=== PATIENT | female | born 1945 | race Caucasian/White ===

== ENCOUNTER → 2018-03-10 10:24 | Outpatient (CLI) | payer MEDICARE, SELFPAY ==
[2018-03-10 13:26] LABS: Absolute Lymphocyte Count 2.55 X10^3/ul (0.83-4.51); Absolute Neutrophil Count 3.1 X10^3/uL (2.0-7.7); Basophil# 0.02 X10^3/uL; Basophil% 0.3 % (0-1); Eosinophil# 0.15 X10^3/uL; Eosinophils% 2.3 % (0-5); Hematocrit 43.9 % (37-47); Hemoglobin 14.4 g/dl (12.0-15.0); Lymphocyte # 2.55 X10^3/ul (4.0); Lymphocyte % 39.4 % (19-41); Mean Corp Hgb Conc 32.8 g/gl (32-36); Mean Corpuscular Hgb 29.8 pg (27.0-32.0); Mean Corpuscular Volume 90.7 fL (81-99); Mean Platelet Vol. 10.6 fl (6.2-12.0); Monocyte# 0.61 X10^3/uL; Monocyte% 9.4 % (0-10); Neutrophil # 3.13 X10^3/uL (2.7-7.7); Neutrophil % 48.3 % (47-70); Platelet Count 253 K/mm3 (150-450); RBC Distribution Width CV 13.4 % (11.6-14.6); RBC Distribution Width SD 44.1 fl (35.1-43.9); Red Blood Count 4.84 M/mm3 (4.2-5.4); White Blood Count 6.5 K/mm3 (4.4-11.0)
[2018-03-10 13:28] LABS: POSITIVE COUNT NO; POSITIVE DIFFERENTIAL NO; POSITIVE MORPHOLOGY NO
[2018-03-10 13:46] LABS: Vitamin D,25 Hydroxy 21.9 ng/mL (29.95-100.01)
[2018-03-10 13:51] LABS: ALB/GLOB Ratio 1.1 RATIO (0.9-2.4); AST(SGOT) 20 U/L (15-37); Alanine Aminotransfer ALT/SGPT 33 U/L (13-56); Albumin, Serum 3.4 g/dL (3.2-5.0); Alkaline Phosphatase 109 U/L (45-117); Anion Gap 6 (5-15); BUN 15 mg/dL (7-18); BUN/Creat Ratio 17.8 RATIO (10-20); Calcium,Total 8.7 mg/dL (8.5-10.1); Chloride 107 mmol/L (98-107); Cholesterol 169 mg/dL (200); Creatinine, Serum 0.84 mg/dL (0.55-1.02); EST Glomerular Filtration Rate 71 mL/min (>60); Est Glom Filt Rate - Afr Amer 86 mL/min (>60); Globulin 3.2 g/dL (2.2-4.2); Glucose 107 mg/dL (74-106); High Density Lipoprotein 66 mg/dL; Potassium 4.3 mmol/L (3.5-5.1); Protein, Total 6.6 g/dL (6.4-8.2); Sodium Level 142 mmol/L (136-145); Thyroid Stim Hormone (TSH) 0.36 uIU/mL (0.358-3.74); Triglycerides 157 mg/dL; Very Low Density Lipoprotein 31 mg/dL (5-40)
[2018-03-11 08:32] LABS: Hep C Antibodies <0.1 s/co ratio (0.0-0.9)
== END ==
PROVIDERS: Family Provider Family Medicine Geriatric Medicine; PCP Family Medicine Geriatric Medicine; Visit Provider Family Medicine Geriatric Medicine
DX: E78.4 Other hyperlipidemia (principal); I10 Essential (primary) hypertension; E55.9 Vitamin D deficiency, unspecified; Z13.89 Encounter for screening for other disorder
CPT/HCPCS: 36415; 80053; 80061; 82306; 84443; 85025; 86803

== ENCOUNTER → 2018-03-30 08:45 | Outpatient (CLI) | payer MEDICARE, SELFPAY ==
--- NOTE | 2018-03-30 08:55 | ECHOCS_ITS ---
Reason For Study: SOB Procedure This was a 2D Doppler, Color Flow transthoracic echocardiogram. Exam performed in department. Left Ventricle Normal size and thickness. The estimated ejection fraction is 65 %. Stage 1 diastolic dysfunction. No regional wall motion abnormalities noted. Right Ventricle Normal size and thickness. Normal systolic function. Atria Normal left atrium. Normal right atrium. Normal atrial septum. Mitral Valve The mitral valve is structurally normal. No prolapse or stenosis seen. Tricuspid Valve Normal tricuspid valve. Trivial tricuspid valve insufficiency. Right ventricular systolic pressure estimated to be 25 mmHg. Aortic Valve Normal aortic valve. Trisinus/trileaflet aortic valve. Pulmonic Valve Normal pulmonic valve. Great Vessels Normal aortic root. Normal arch. Normal inferior vena cava. Inferior vena cava collapse with sniff. Pericardium/Pleural No pericardial effusion. Medication Definity0.2ml given slow IV push to enhance endocardial definition. MMode/2D Measurements & Calculations LVIDd: 4.0 cm IVSd: 0.86 cm Ao root diam: 2.9 cm LVIDs: 2.6 cm LVPWd: 0.93 cm RVDd: 3.3 cm FS: 33.6 % LAV(MOD-bp): 27.8 ml LA A4 area: 11.0 cm2 RA A4 area: 10.8 cm2 LAV(MOD-bp) Indexed: 14.5 ml/m2 LAV(MOD-sp2): 32.2 ml LAV(MOD-sp4): 23.3 ml Doppler Measurements & Calculations MV E max michael: 66.2 cm/sec Lat Peak E' Michael: 8.5 cm/sec Med Peak E' Michael: 4.5 cm/sec MV A max michael: 85.2 cm/sec E/E' lat: 7.8 E/E' med: 14.7 MV E/A: 0.78 Ao V2 max: 116.4 cm/sec LV V1 max: 95.3 cm/sec PA V2 max: 73.1 cm/sec Ao max P.4 mmHg LV V1 max P.6 mmHg Ao V2 mean: 83.9 cm/sec Ao mean P.0 mmHg Ao V2 VTI: 29.9 cm TR max michael: 221.0 cm/sec TR max P.6 mmHg Interpretation Summary The estimated ejection fraction is 65 %. Stage 1 diastolic dysfunction. Trivial tricuspid valve insufficiency. Right ventricular systolic pressure estimated to be 25 mmHg. Comapred to echo report dated 06/16/2005, no appreciable changes noted. The study was technically difficult. Contrast injection was performed. Ordering Physician: Neno Rosenbaum Referring Physician: Neno Rosenbaum Chi Performed By: Sandy Santiago, KYLE, RVT
== END ==
PROVIDERS: Family Provider Family Medicine Geriatric Medicine; PCP Family Medicine Geriatric Medicine; Visit Provider Family Medicine Geriatric Medicine
DX: R06.02 Shortness of breath (principal)
CPT/HCPCS: 93306; Q9957; A4216; C8929

== ENCOUNTER → 2018-07-06 06:38 | Outpatient (CLI) | payer MEDICARE, SELFPAY ==
--- NOTE | 2018-07-06 06:40 | RAD_ITS ---
STUDY: X-RAY CHEST REASON FOR EXAM: Female, 72 years old. Shortness of breath TECHNIQUE: Frontal and lateral views of the chest COMPARISON: 12/23/2014 FINDINGS: The lungs are clear. There are no pleural effusions. There is no pneumothorax. The heart is normal in size. The visualized osseous structures are within normal limits. RAD/Chest PA and Lateral IMPRESSION: No acute thoracic pathology. Electronically Signed: Alex Chandler, at 20:52 EDT Tel , Service support ,
--- NOTE | 2018-07-06 10:09 | STRESSREP ---
Stress Test Report Date: 07/06/2018 Procedure: Exercise tolerance test/imaging study Indications: Shortness of breath/dyspnea Consent: Per the patient Procedure: The patient exercised on a Raheel protocol for 5 minutes and 15 seconds completing Stage I and 2 minutes and 15 seconds of Stage II achieving a peak heart rate of 127 bpm (85 % predicted maximal heart rate) with a peak blood pressure 142/78 mmHg and a peak MET capacity of 7 METs. The baseline ECG demonstrated sinus bradycardia. The peak exercise ECG demonstrated somatic/motion artifact no obvious ECG changes. There were no cardiac dysrhythmias pretest, during exercise, or recovery. The functional capacity was considered average. There was no complaint of chest discomfort during exercise or recovery. The examination was discontinued secondary to dyspnea. Impression: 1. Technically adequate (percent predicted maximal heart rate greater than 85%) exercise tolerance test 2. Peak exercise ECG with somatic/motion artifact with no obvious ECG changes 3. There were no cardiac dysrhythmias pretest, during exercise, or recovery. 4. Nuclear images pending Myocardial perfusion imaging study: Technique: The patient was injected with 11 mCi of technetium 99m Cardiolite and subsequently rest SPECT Cardiolite nuclear imaging was obtained in the horizontal long, vertical long, and short axis views. The patient exercised on a Raheel protocol for 5 minutes and 15 seconds completing Stage I and 2 minutes and 15 seconds of Stage II achieving a peak heart rate of 127 bpm (85 % predicted maximal heart rate) with a peak blood pressure 142/78 mmHg and a peak MET capacity of 7 METs. The patient was injected with 33 mCi of technetium 99m Cardiolite and subsequently stress SPECT Cardiolite nuclear imaging was obtained in the horizontal long, vertical long, and short axis views. A gated Cardiolite study at peak stress was obtained. Interpretation: Rest and stress SPECT Cardiolite nuclear imaging status post realignment, normalization, and attenuation correction, demonstrates the appearance of relative uniform tracer uptake and myocardial perfusion appearing within normal limits. There is end systolic thickening and brightening. The gated Cardiolite study demonstrates myocardial thickening and inward wall motion. The reported LVEF is 84 %. Impression: 1. Rest and stress SPECT Cardiolite nuclear imaging demonstrate relative uniform tracer uptake and myocardial perfusion appearing within normal limits. 2. The gated Cardiolite study reports an LVEF of 84 %. This note was generated with [employer] software. It may contain incorrect words, spelling, and punctuation that were not noted in checking the note before signing.
--- NOTE | 2018-07-06 10:13 | STRESSREP_ITS ---
Stress Test Report Date: 07/06/2018 Procedure: Exercise tolerance test/imaging study Indications: Shortness of breath/dyspnea Consent: Per the patient Procedure: The patient exercised on a Raheel protocol for 5 minutes and 15 seconds completing Stage I and 2 minutes and 15 seconds of Stage II achieving a peak heart rate of 127 bpm (85 % predicted maximal heart rate) with a peak blood pressure 142/78 mmHg and a peak MET capacity of 7 METs. The baseline ECG demonstrated sinus bradycardia. The peak exercise ECG demonstrated somatic/motion artifact no obvious ECG changes. There were no cardiac dysrhythmias pretest, during exercise, or recovery. The functional capacity was considered average. There was no complaint of chest discomfort during exercise or recovery. The examination was discontinued secondary to dyspnea. Impression: 1. Technically adequate (percent predicted maximal heart rate greater than 85% ) exercise tolerance test 2. Peak exercise ECG with somatic/motion artifact with no obvious ECG changes 3. There were no cardiac dysrhythmias pretest, during exercise, or recovery. 4. Nuclear images pending Myocardial perfusion imaging study: Technique: The patient was injected with 11 mCi of technetium 99m Cardiolite and subsequently rest SPECT Cardiolite nuclear imaging was obtained in the horizontal long, vertical long, and short axis views. The patient exercised on a Raheel protocol for 5 minutes and 15 seconds completing Stage I and 2 minutes and 15 seconds of Stage II achieving a peak heart rate of 127 bpm (85 % predicted maximal heart rate) with a peak blood pressure 142/78 mmHg and a peak MET capacity of 7 METs. The patient was injected with 33 mCi of technetium 99m Cardiolite and subsequently stress SPECT Cardiolite nuclear imaging was obtained in the horizontal long, vertical long, and short axis views. A gated Cardiolite study at peak stress was obtained. Interpretation: Rest and stress SPECT Cardiolite nuclear imaging status post realignment, normalization, and attenuation correction, demonstrates the appearance of relative uniform tracer uptake and myocardial perfusion appearing within normal limits. There is end systolic thickening and brightening. The gated Cardiolite study demonstrates myocardial thickening and inward wall motion. The reported LVEF is 84 %. Impression: 1. Rest and stress SPECT Cardiolite nuclear imaging demonstrate relative uniform tracer uptake and myocardial perfusion appearing within normal limits. 2. The gated Cardiolite study reports an LVEF of 84 %. This note was generated with [employer] software. It may contain incorrect words, spelling, and punctuation that were not noted in checking the note before signing.
== END ==
PROVIDERS: Family Provider Family Medicine Geriatric Medicine; PCP Family Medicine Geriatric Medicine; Visit Provider Internal Medicine Cardiovascular Disease
DX: R06.02 Shortness of breath (principal); I51.9 Heart disease, unspecified; E78.5 Hyperlipidemia, unspecified; I10 Essential (primary) hypertension
CPT/HCPCS: 71046; 78452; 93017; A9500; A4216

== ENCOUNTER 2018-07-25 16:57 | Observation (INO) | payer MEDICARE, SELFPAY ==
[2018-07-25] VITALS (11 sets, daily range): BP systolic 127–184; BP diastolic 55–97; PULSE 48–63; RESP 9–18; TEMP 36.6–36.7; O2SAT 95–100; BMI 37.8; BMI 36.8; BMI 36.9
[2018-07-25 17:05] LABS: Bedside Glucose 83 mg/dL (70-110)
--- NOTE | 2018-07-25 17:20 | ED.DCSUM_ITS ---
- ER Visit Summary Date of Service: 07/25/18 Chief Complaint: Possible TIA History of Present Illness: The patient is a 72 F with a history of TIA. She presents for symptoms that started suddenly at 3:45 PM today. She had a headache, slurred speech, abnormal writing, and intermittent chest pain. She had similar symptoms in the past with TIAs. Currently, her symptoms have resolved. She reports a history of hypothyroidism, hypertension, hyperlipidemia , CHF, and asthma. She does not take blood thinners. Physical Examination: Blood pressure 148/97. Otherwise vital signs unremarkable. Afebrile. Heart rate 52. Patient in no acute distress. Alert and oriented. GCS 15. NIH stroke scale is 0. Head and neck atraumatic. Heart regular. Lungs clear. Abdomen soft. Skin appears normal in color without rash. Test Results: EKG shows sinus rhythm at a rate of 50. No sign of acute ischemia or infarction pattern. Laboratory studies, CT brain, CTA chest pending. Emergency Department Course and Treatment: Patient placed on a monitor. IV access obtained. Will reassess. Workup including head CT, CTA chest, labs, troponin all unremarkable. BUN 20 and creatinine 1.31. No sign of dissection, PE, or acute process. On reevaluation, patient had no further symptoms or recurrent symptoms. Will be admitted for further care. Treatment Plan: As above Disposition: Admission to PCU Impression: 1. TIA 2. Chest pain 3. Acute kidney injury This note was generated with [employer] dictation software. It may contain incorrect words, spelling, and punctuation that were not noted in review of the chart prior to signing ED Disposition - Plan for ED Patient: Chief Complaint: Weakness Referrals: Neno Rosenbaum Chi, MD [Primary Care Provider] -
[2018-07-25 17:25] LABS: Absolute Lymphocyte Count 2.82 X10^3/ul (0.83-4.51); Absolute Neutrophil Count 3.9 X10^3/uL (2.0-7.7); Basophil# 0.02 X10^3/uL; Basophil% 0.3 % (0-1); Eosinophil# 0.15 X10^3/uL; Eosinophils% 1.9 % (0-5); Hematocrit 42.5 % (37-47); Hemoglobin 14.1 g/dl (12.0-15.0); Lymphocyte # 2.82 X10^3/ul (4.0); Lymphocyte % 36.1 % (19-41); Mean Corp Hgb Conc 33.2 g/gl (32-36); Mean Corpuscular Hgb 29.9 pg (27.0-32.0); Mean Corpuscular Volume 90.2 fL (81-99); Mean Platelet Vol. 10.5 fl (6.2-12.0); Monocyte# 0.94 X10^3/uL; Neutrophil # 3.86 X10^3/uL (2.7-7.7); Neutrophil % 49.3 % (47-70); Platelet Count 241 K/mm3 (150-450); RBC Distribution Width CV 13.5 % (11.6-14.6); RBC Distribution Width SD 44.4 fl (35.1-43.9); Red Blood Count 4.71 M/mm3 (4.2-5.4); White Blood Count 7.8 K/mm3 (4.4-11.0)
[2018-07-25 17:29] LABS: POSITIVE COUNT NO; POSITIVE DIFFERENTIAL NO; POSITIVE MORPHOLOGY NO
[2018-07-25 17:44] LABS: Anion Gap 8 (5-15); BUN 20 mg/dL (7-18); BUN/Creat Ratio 15.3 RATIO (10-20); Calcium,Total 8.9 mg/dL (8.5-10.1); Chloride 104 mmol/L (98-107); Creatinine, Serum 1.31 mg/dL (0.55-1.02); EST Glomerular Filtration Rate 43 mL/min (>60); Est Glom Filt Rate - Afr Amer 52 mL/min (>60); Estimated Creatinine Clearance 30.15 ml/min; Glucose 78 mg/dL (74-106); Sodium Level 138 mmol/L (136-145)
[2018-07-25 18:20] LABS: Prothrombin Time (Protime)PT. 12.7 SECONDS (11.7-14.9)
[2018-07-25 18:21] LABS: Partial Thromboplast Time 25.2 Seconds (24.1-36.2)
--- NOTE | 2018-07-25 19:11 | PCM.HP.STD ---
Problem List (1) TIA (transient ischemic attack) Status: Acute (2) Chest pain Status: Acute Qualifiers: Chest pain type: unspecified Qualified Code(s): R07.9 - Chest pain, unspecified (3) NAKIA (acute kidney injury) Status: Acute (4) Obesity (BMI 30-39.9) Status: Chronic (5) Diastolic dysfunction Status: Chronic (6) Hyperlipidemia Status: Chronic Qualifiers: (7) Hypertension Status: Chronic Qualifiers: Hypertension type: essential hypertension Qualified Code(s): I10 - Essential (primary) hypertension (8) Asthma Status: Chronic Qualifiers: Asthma severity: unspecified severity Asthma persistence: unspecified Asthma complication type: unspecified Qualified Code(s): J45.909 - Unspecified asthma, uncomplicated (9) Hypothyroidism Status: Chronic Qualifiers: Hypothyroidism type: unspecified Qualified Code(s): E03.9 - Hypothyroidism, unspecified (10) Generalized osteoarthritis Status: Chronic History of Present Illness Date of Admission: 07/25/18 Chief Complaint: Weakness The patient is a 72 y/o F w/ PMHx: Obesity, HTN, HLD, Diastolic Dysfunction, Asthma, Hypothyroidism, Obesity, Hx TIA who presents to the [facility] ED on 07/25/18 with history of onset at 15:45 sudden headache generalized, RUE weakness w/ difficulty writing (R hand dominant), expressive aphasia which resolved at ~ 5 pm upon ED presentation in addition to onset sharp stabbing sensation 10/10 rated, intermittent chest pain in the retrosternal region without radiation, lasting seconds with associated dyspnea which she admits she has had in the past and had negative stress testing prior. She notes ongoing history of dyspnea and these intermittent stabbing chest pains w/ recent 04/30/18 ECHO w/ EF 65%, stage I diastolic dysfunction, trivial TV insufficiency, RVSP 25 mmHg with no appreciable changes since 2004 and recent cardiac stress testing on 07/06/18 which was unremarkable for ischemia. In the ED patient NIH score 0 and no recurrent chest discomfort. In the ED work-up included afebrile, heart rate 53, BP 134/71, respiratory rate 12, 100% on room air, unremarkable CBC, unremarkable coags, BMP with BUN/creatinine 20/1.31 (baseline creatinine 0.8), troponin less than 0.015, CT head with no acute findings, CTPA with no acute evidence of pulmonary embolism or arterial dissection, poor expiratory effort with subsegmental atelectasis in the inferior lung base, calcified lymph nodes seen in the left hilum. Past Medical History Past Medical History (Chronic Problems): Chronic Problems (Last Updated 06/29/18 @ 10:07 by Sharon Cohen) Obesity (BMI 30-39.9) (Chronic) Diastolic dysfunction (Chronic) Hyperlipidemia (Chronic) Hypertension (Chronic) Asthma (Chronic) Hypothyroidism (Chronic) Generalized osteoarthritis (Chronic) Medical History: Medical History (Last Updated 06/29/18 @ 10:07 by Sharon Cohen) Diastolic dysfunction (Chronic) I51.9 Hyperlipidemia (Chronic) E78.5 Hypertension (Chronic) I10 Asthma (Chronic) J45.909 Hypothyroidism (Chronic) E03.9 Generalized osteoarthritis (Chronic) M15.9 History of TIA (transient ischemic attack) and stroke Z86.73 Osteoarthritis M19.90 Plantar fasciitis M72.2 Hypoglycemia E16.2 Mini stroke I63.9 possible IN Allergies sulfadimethoxine Allergy (Mild, Verified 07/25/18 17:04) unknown Home Medications: Ambulatory Orders Medication Instructions Recorded levothyroxine 88 mcg tablet 88 mcg PO QDAY 06/27/18 aspirin 81 mg tablet,delayed 81 mg PO QDAY 06/29/18 release atorvastatin 40 mg tablet 40 mg PO DAILY 06/29/18 citalopram 20 mg tablet 20 mg PO QDAY 06/29/18 metoprolol succinate ER 25 mg 25 mg PO BID tab 06/29/18 tablet,extended release 24 hr Losartan Potassium [Losartan 50 mg PO BID 07/25/18 Potassium] Surgical History: Surgical History (Last Reviewed 06/29/18 @ 10:04 by Sharon Cohen) History of hernia repair Z98.890, Z87.19 History of hysterectomy Z90.710 History of tonsillectomy and adenoidectomy Z98.890 History of tubal ligation Z98.51 H/O: hysterectomy Z98.890, Z90.710 1993 S/P hernia repair Z98.890, Z87.19 S/P tonsillectomy Z90.89 Surgical History: - - Hernia repair, total abdominal hysterectomy, tonsillectomy, bilateral tubal ligation. 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 Lives: With Family Smoking Status: Never smoker Tobacco Use: Non-smoker Alcohol: Rare Drugs: None - *Family History Maternal Family History: Family History (Last Reviewed 06/29/18 @ 10:04 by Sharno Cohen) Father Cancer CVA (cerebral vascular accident) Hypertension CAD (coronary artery disease) Brother Cancer Kidney disease Mother Hypertension CAD (coronary artery disease) Kidney disease Brother Cancer History Items: Diabetes, High Cholesterol, Heart Disease, Hypertension Paternal Family History: Family History (Last Reviewed 06/29/18 @ 10:04 by Sharon Cohen) Father Cancer CVA (cerebral vascular accident) Hypertension CAD (coronary artery disease) Brother Cancer Kidney disease Mother Hypertension CAD (coronary artery disease) Kidney disease Brother Cancer History Items: Diabetes, High Cholesterol, Heart Disease, Hypertension Review of Systems Constitutional: Reports: Fatigue. Denies: Chills, Fever, Weight Change HEENT: Reports: Head Aches. Denies: Sinus Congestion, Sinus Drainage Cardiovascular: Reports: Chest Pain. Denies: Chest Pressure, Chest Tightness, Heaviness, Light Headedness, Orthopnea, Palpitations, Syncope Respiratory: Reports: Shortness of Breath, Shortness of breath at rest, Shortness of breath upon exertion. Denies: Cough, Sputum production Gastrointestinal: Denies: Abdominal Pain, Nausea, Vomiting Genitourinary: Denies: Dysuria Musculoskeletal: Reports: Back Pain. Denies: Joint Pain, Joint Tenderness Skin: Denies: Rash, Wounds Neurological: Reports: Change in Speech, Slurred speech, Confusion, Focal weakness. Denies: Numbness, Tingling Psychiatric: Reports: Anxiety, Depression. Denies: Homicidal Ideations, Suicidal Ideations Hematologic/ Lymphatic: Denies: Easy Bruising, Easy Bleeding VTE Information - Inpt Only VTE Present on Admission: No VTE Mechan Device Prophylaxis: SCD's VTE Pharm Prophylaxis ordered?: Yes Patient Problems: Active and Suspected Problems (Last Updated 06/29/18 @ 10:07 by Sharon Cohen) TIA (transient ischemic attack) (Acute) Chest pain (Acute) NAKIA (acute kidney injury) (Acute) Subjective: Seated upright in the ED bed, no acute distress currently, no recurrent chest pain or recurrent neurological symptoms. Objective: Physical Examination: General: awake, alert, oriented x 3 and cooperative, seated upright in the ED bed in no apparent distress. Skin: normal color, turgor, no icterus, cyanosis. HEENT: AT/NC, EOMI, PERRLA, moderately dry MM, no carotid bruits or JVD noted. Lungs: CTA bilaterally, moderate effort, mild decrease BL bases, no rales, ronchi or wheezing. Heart: Mildly bradycardic with regular rhythm; no gallop, rub audible. Abdomen: soft, obese, NTTP, ND, normal BS, no HSM. Extremities: no cyanosis, clubbing, or edema. Neurological: patient awake, alert, oriented x 3; cognitive function intact; pupils equally reactive to light and accomodation; cranial nerves II-XII grossly normal, moving all 4 extremities, no focal deficits, strength preserved. Psychiatric: affect appears normal, no acute evidence of depressive or anxiety feelings. - Physical Exam Vital Signs Temp Pulse Resp BP Pulse Ox 97.8 F 53 L 12 134/71 H 100 07/25/18 16:57 07/25/18 19:05 07/25/18 19:05 07/25/18 19:05 07/25/18 19:05 Oxygen Delivery Method Room Air Weight: 200 lb 6.403 oz Body Mass Index (BMI) 37.8 Finger Stick Blood Glucose 83 Laboratory Tests Past 24 Hrs 07/25/18 07/25/18 07/25/18 17:05 17:05 17:05 WBC 7.8 RBC 4.71 Hgb 14.1 Hct 42.5 MCV 90.2 MCH 29.9 MCHC 33.2 RDW 13.5 RDW Differential 44.4 H Plt Count 241 MPV 10.5 Immature Gran % (Auto) 0.400 Neut % (Auto) 49.3 Lymph % (Auto) 36.1 Brooke % (Auto) 12.0 H Eos % (Auto) 1.9 Baso % (Auto) 0.3 Absolute Neuts (auto) 3.9 Absolute Lymphs (auto) 2.82 Total Counted Not Reportable PT 12.7 INR 1.0 APTT 25.2 Sodium 138 Potassium 4.0 Chloride 104 Carbon Dioxide 26.0 Anion Gap 8 BUN 20 H Creatinine 1.31 H Estim Creat Clear Calc 30.15 Est GFR (MDRD) Af Amer 52 L Est GFR (MDRD) Non-Af 43 L BUN/Creatinine Ratio 15.3 Glucose 78 Calcium 8.9 Troponin I < 0.015 POC Glucose 07/25/18 17:01 POC Glucose 83 Assessment/Plan All Active Problems (Last Updated 06/29/18 @ 10:07 by Sharon Cohen) TIA (transient ischemic attack) (Acute) Chest pain (Acute) NAKIA (acute kidney injury) (Acute) The patient is a 72 y/o F w/ PMHx: Obesity, HTN, HLD, Diastolic Dysfunction, Asthma, Hypothyroidism, Obesity, Hx TIA who presents to the [facility] ED on 07/25/18 with history of onset at 15:45 sudden headache generalized, RUE weakness w/ difficulty writing (R hand dominant), expressive aphasia which resolved at ~ 5 pm upon ED presentation in addition to onset sharp stabbing sensation 10/10 rated, intermittent chest pain in the retrosternal region without radiation, lasting seconds with associated dyspnea which she admits she has had in the past and had negative stress testing prior. (1) Expressive Aphasia, RUE Weakness concerning for TIA/CVA w/ Hx Prior TIAs: In the ED work-up included afebrile, heart rate 53, BP 134/71, respiratory rate 12, 100% on room air, unremarkable CBC, unremarkable coags, BMP with BUN/creatinine 20/1.31 (baseline creatinine 0.8), troponin less than 0.015, CT head with no acute findings, CTPA with no acute evidence of pulmonary embolism or arterial dissection, poor expiratory effort with subsegmental atelectasis in the inferior lung base, calcified lymph nodes seen in the left hilum. Will admit to PCU, will obtain MRI Brain, MRA Head and Neck, ECHO, PT/OT/Speech/Nutrition evaluation per protocol. Will consult Neurology for evaluation. Given resolution will continue HTN regimen with hold parameters, maintain on asa with addition of plavix, increase to high dose statin w/ AM FLP, fall precautions. (2) Atypical Chest Pain: EKG in ED with sinus rhythm with no acute evidence of ischemia, CTPA without acute findings. Will place on a monitored bed to assure no acute myocardial infarction with serial cardiac enzymes and EKGs. Recent 07/06/18 negative stress testing. If recurrent pending work-up #1 may need to consider Cardiology assessment. Mag pending. FLP in AM. ASA, NG, morphine. (3) Acute kidney injury: Secondary to suspected poor intake, mild dehydration. Admission BUN/Cr 20/1.31, prior baseline creatinine noted to be 0.8. Will hydrate, hold nephrotoxic medications and repeat chemistry in AM. If no improvement would plan FeNa and renal US assessment. (4) Hypothyroidism: Continue home synthroid regimen, TSH and FT4 pending. (5) Obesity: Weight loss and lifestyle changes encouraged. (6) Chronic Asthma: Possibly the etiology for her ongoing dyspnea complaints as unremarkable ECHO and stress testing outpatient work-up with asthma history. Continue ATC duonebs, PRN albuterol, HOB, IS parameters. (7) Hypertension: Continue home regimen including losartan, metoprolol with hold parameters, PRN hydralazine. (8) Hyperlipidemia: Continue home statin regimen. AM FLP. (9) Anxiety and Depression: Continue home regimen citalopram. (10) DVT Prophylaxis: SCDs, heparin. Code Visit OBSV E&M: [id number] Initial observation care L3
--- NOTE | 2018-07-25 19:12 | NURSING ---
pT FAILED DYSPHAGIA SCREEN . PT C/O THAT SHE FEELS LIKE IT IS STUCK IN HER THROAT.
--- NOTE | 2018-07-25 19:20 | HP.PCM_ITS ---
Problem List (1) TIA (transient ischemic attack) Status: Acute (2) Chest pain Status: Acute Qualifiers: Chest pain type: unspecified Qualified Code(s): R07.9 - Chest pain, unspecified (3) NAKIA (acute kidney injury) Status: Acute (4) Obesity (BMI 30-39.9) Status: Chronic (5) Diastolic dysfunction Status: Chronic (6) Hyperlipidemia Status: Chronic Qualifiers: (7) Hypertension Status: Chronic Qualifiers: Hypertension type: essential hypertension Qualified Code(s): I10 - Essential (primary) hypertension (8) Asthma Status: Chronic Qualifiers: Asthma severity: unspecified severity Asthma persistence: unspecified Asthma complication type: unspecified Qualified Code(s): J45.909 - Unspecified asthma, uncomplicated (9) Hypothyroidism Status: Chronic Qualifiers: Hypothyroidism type: unspecified Qualified Code(s): E03.9 - Hypothyroidism , unspecified (10) Generalized osteoarthritis Status: Chronic History of Present Illness Date of Admission: 07/25/18 Chief Complaint: Weakness The patient is a 72 y/o F w/ PMHx: Obesity, HTN, HLD, Diastolic Dysfunction, Asthma, Hypothyroidism, Obesity, Hx TIA who presents to the [facility] ED on 07/25/18 with history of onset at 15:45 sudden headache generalized, RUE weakness w/ difficulty writing (R hand dominant), expressive aphasia which resolved at ~ 5 pm upon ED presentation in addition to onset sharp stabbing sensation 10/10 rated, intermittent chest pain in the retrosternal region without radiation, lasting seconds with associated dyspnea which she admits she has had in the past and had negative stress testing prior. She notes ongoing history of dyspnea and these intermittent stabbing chest pains w/ recent 04/30/18 ECHO w/ EF 65%, stage I diastolic dysfunction, trivial TV insufficiency, RVSP 25 mmHg with no appreciable changes since 2004 and recent cardiac stress testing on which was unremarkable for ischemia. In the ED patient NIH score 0 and no recurrent chest discomfort. In the ED work-up included afebrile, heart rate 53, BP 134/71, respiratory rate 12, 100% on room air, unremarkable CBC, unremarkable coags, BMP with BUN/creatinine 20/1.31 (baseline creatinine 0.8), troponin less than 0.015, CT head with no acute findings, CTPA with no acute evidence of pulmonary embolism or arterial dissection, poor expiratory effort with subsegmental atelectasis in the inferior lung base, calcified lymph nodes seen in the left hilum. Past Medical History Past Medical History (Chronic Problems): Chronic Problems (Last Updated 06/29/18 @ 10:07 by Sharon Cohen) Obesity (BMI 30-39.9) (Chronic) Diastolic dysfunction (Chronic) Hyperlipidemia (Chronic) Hypertension (Chronic) Asthma (Chronic) Hypothyroidism (Chronic) Generalized osteoarthritis (Chronic) Medical History: Medical History (Last Updated 06/29/18 @ 10:07 by Sharon Cohen) Diastolic dysfunction (Chronic) I51.9 Hyperlipidemia (Chronic) E78.5 Hypertension (Chronic) I10 Asthma (Chronic) J45.909 Hypothyroidism (Chronic) E03.9 Generalized osteoarthritis (Chronic) M15.9 History of TIA (transient ischemic attack) and stroke Z86.73 Osteoarthritis M19.90 Plantar fasciitis M72.2 Hypoglycemia E16.2 Mini stroke I63.9 possible [place] Allergies sulfadimethoxine Allergy (Mild, Verified 07/25/18 17:04) unknown Home Medications: Ambulatory Orders Medication Instructions Recorded levothyroxine 88 mcg tablet 88 mcg PO QDAY 06/27/18 aspirin 81 mg tablet,delayed 81 mg PO QDAY 06/29/18 release atorvastatin 40 mg tablet 40 mg PO DAILY 06/29/18 citalopram 20 mg tablet 20 mg PO QDAY 06/29/18 metoprolol succinate ER 25 mg 25 mg PO BID tab 06/29/18 tablet,extended release 24 hr Losartan Potassium [Losartan 50 mg PO BID 07/25/18 Potassium] Surgical History: Surgical History (Last Reviewed 06/29/18 @ 10:04 by Sharon Cohen) History of hernia repair Z98.890, Z87.19 History of hysterectomy Z90.710 History of tonsillectomy and adenoidectomy Z98.890 History of tubal ligation Z98.51 H/O: hysterectomy Z98.890, Z90.710 1993 S/P hernia repair Z98.890, Z87.19 S/P tonsillectomy Z90.89 Surgical History: - - Hernia repair, total abdominal hysterectomy, tonsillectomy , bilateral tubal ligation. 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 Lives: With Family Smoking Status: Never smoker Tobacco Use: Non-smoker Alcohol: Rare Drugs: None - *Family History Maternal Family History: Family History (Last Reviewed 06/29/18 @ 10:04 by Sharon Cohen) Father Cancer CVA (cerebral vascular accident) Hypertension CAD (coronary artery disease) Brother Cancer Kidney disease Mother Hypertension CAD (coronary artery disease) Kidney disease Brother Cancer History Items: Diabetes, High Cholesterol, Heart Disease, Hypertension Paternal Family History: Family History (Last Reviewed 06/29/18 @ 10:04 by Sharon Cohen) Father Cancer CVA (cerebral vascular accident) Hypertension CAD (coronary artery disease) Brother Cancer Kidney disease Mother Hypertension CAD (coronary artery disease) Kidney disease Brother Cancer History Items: Diabetes, High Cholesterol, Heart Disease, Hypertension Review of Systems Constitutional: Reports: Fatigue. Denies: Chills, Fever, Weight Change HEENT: Reports: Head Aches. Denies: Sinus Congestion, Sinus Drainage Cardiovascular: Reports: Chest Pain. Denies: Chest Pressure, Chest Tightness, Heaviness, Light Headedness, Orthopnea, Palpitations, Syncope Respiratory: Reports: Shortness of Breath, Shortness of breath at rest, Shortness of breath upon exertion. Denies: Cough, Sputum production Gastrointestinal: Denies: Abdominal Pain, Nausea, Vomiting Genitourinary: Denies: Dysuria Musculoskeletal: Reports: Back Pain. Denies: Joint Pain, Joint Tenderness Skin: Denies: Rash, Wounds Neurological: Reports: Change in Speech, Slurred speech, Confusion, Focal weakness. Denies: Numbness, Tingling Psychiatric: Reports: Anxiety, Depression. Denies: Homicidal Ideations, Suicidal Ideations Hematologic/ Lymphatic: Denies: Easy Bruising, Easy Bleeding VTE Information - Inpt Only VTE Present on Admission: No VTE Mechan Device Prophylaxis: SCD's VTE Pharm Prophylaxis ordered?: Yes Patient Problems: Active and Suspected Problems (Last Updated 06/29/18 @ 10:07 by Sharon Cohen ) TIA (transient ischemic attack) (Acute) Chest pain (Acute) NAKIA (acute kidney injury) (Acute) Subjective: Seated upright in the ED bed, no acute distress currently, no recurrent chest pain or recurrent neurological symptoms. Objective: Physical Examination: General: awake, alert, oriented x 3 and cooperative, seated upright in the ED bed in no apparent distress. Skin: normal color, turgor, no icterus, cyanosis. HEENT: AT/NC, EOMI, PERRLA, moderately dry MM, no carotid bruits or JVD noted. Lungs: CTA bilaterally, moderate effort, mild decrease BL bases, no rales, ronchi or wheezing. Heart: Mildly bradycardic with regular rhythm; no gallop, rub audible. Abdomen: soft, obese, NTTP, ND, normal BS, no HSM. Extremities: no cyanosis, clubbing, or edema. Neurological: patient awake, alert, oriented x 3; cognitive function intact; pupils equally reactive to light and accomodation; cranial nerves II-XII grossly normal, moving all 4 extremities, no focal deficits, strength preserved. Psychiatric: affect appears normal, no acute evidence of depressive or anxiety feelings. - Physical Exam Vital Signs Temp Pulse Resp BP Pulse Ox 97.8 F 53 L 12 134/71 H 100 07/25/18 16:57 07/25/18 19:05 07/25/18 19:05 07/25/18 19:05 07/25/18 19:05 Oxygen Delivery Method Room Air Weight: 200 lb 6.403 oz Body Mass Index (BMI) 37.8 Finger Stick Blood Glucose 83 Laboratory Tests Past 24 Hrs 07/25/18 07/25/18 07/25/18 17:05 17:05 17:05 WBC 7.8 RBC 4.71 Hgb 14.1 Hct 42.5 MCV 90.2 MCH 29.9 MCHC 33.2 RDW 13.5 RDW Differential 44.4 H Plt Count 241 MPV 10.5 Immature Gran % (Auto) 0.400 Neut % (Auto) 49.3 Lymph % (Auto) 36.1 [place] % (Auto) 12.0 H Eos % (Auto) 1.9 Baso % (Auto) 0.3 Absolute Neuts (auto) 3.9 Absolute Lymphs (auto) 2.82 Total Counted Not Reportable PT 12.7 INR 1.0 APTT 25.2 Sodium 138 Potassium 4.0 Chloride 104 Carbon Dioxide 26.0 Anion Gap 8 BUN 20 H Creatinine 1.31 H Estim Creat Clear Calc 30.15 Est GFR (MDRD) Af Amer 52 L Est GFR (MDRD) Non-Af 43 L BUN/Creatinine Ratio 15.3 Glucose 78 Calcium 8.9 Troponin I < 0.015 POC Glucose 07/25/18 17:01 POC Glucose 83 Assessment/Plan All Active Problems (Last Updated 06/29/18 @ 10:07 by Sharon Cohen) TIA (transient ischemic attack) (Acute) Chest pain (Acute) NAKIA (acute kidney injury) (Acute) The patient is a 72 y/o F w/ PMHx: Obesity, HTN, HLD, Diastolic Dysfunction, Asthma, Hypothyroidism, Obesity, Hx TIA who presents to the [facility] ED on 07/25/18 with history of onset at 15:45 sudden headache generalized, RUE weakness w/ difficulty writing (R hand dominant), expressive aphasia which resolved at ~ 5 pm upon ED presentation in addition to onset sharp stabbing sensation 10/10 rated, intermittent chest pain in the retrosternal region without radiation, lasting seconds with associated dyspnea which she admits she has had in the past and had negative stress testing prior. (1) Expressive Aphasia, RUE Weakness concerning for TIA/CVA w/ Hx Prior TIAs: In the ED work-up included afebrile, heart rate 53, BP 134/71, respiratory rate 12, 100% on room air, unremarkable CBC, unremarkable coags, BMP with BUN/ creatinine 20/1.31 (baseline creatinine 0.8), troponin less than 0.015, CT head with no acute findings, CTPA with no acute evidence of pulmonary embolism or arterial dissection, poor expiratory effort with subsegmental atelectasis in the inferior lung base, calcified lymph nodes seen in the left hilum. Will admit to PCU, will obtain MRI Brain, MRA Head and Neck, ECHO, PT/OT/Speech/ Nutrition evaluation per protocol. Will consult Neurology for evaluation. Given resolution will continue HTN regimen with hold parameters, maintain on asa with addition of plavix, increase to high dose statin w/ AM FLP, fall precautions. (2) Atypical Chest Pain: EKG in ED with sinus rhythm with no acute evidence of ischemia, CTPA without acute findings. Will place on a monitored bed to assure no acute myocardial infarction with serial cardiac enzymes and EKGs. Recent negative stress testing. If recurrent pending work-up #1 may need to consider Cardiology assessment. Mag pending. FLP in AM. ASA, NG, morphine. (3) Acute kidney injury: Secondary to suspected poor intake, mild dehydration. Admission BUN/Cr 20/1.31, prior baseline creatinine noted to be 0.8. Will hydrate, hold nephrotoxic medications and repeat chemistry in AM. If no improvement would plan FeNa and renal US assessment. (4) Hypothyroidism: Continue home synthroid regimen, TSH and FT4 pending. (5) Obesity: Weight loss and lifestyle changes encouraged. (6) Chronic Asthma: Possibly the etiology for her ongoing dyspnea complaints as unremarkable ECHO and stress testing outpatient work-up with asthma history. Continue ATC duonebs, PRN albuterol, HOB, IS parameters. (7) Hypertension: Continue home regimen including losartan, metoprolol with hold parameters, PRN hydralazine. (8) Hyperlipidemia: Continue home statin regimen. AM FLP. (9) Anxiety and Depression: Continue home regimen citalopram. (10) DVT Prophylaxis: SCDs, heparin. Code Visit OBSV E&M: 07792 Initial observation care L3
--- NOTE | 2018-07-25 20:02 | NURSING ---
Called [facility] charge nursemarvin to send patient to the floor.
[2018-07-25] MEDS: Ipratropium/Albuterol Sulfate 3 ML AMPUL.NEB INHALATION (21:27)
[2018-07-25 21:47] LABS: Magnesium 1.8 mg/dL (1.6-2.6)
[2018-07-25] MEDS: 0.9% Normal Saline 1,000 ML 100 ML IV (21:57)
[2018-07-25] MEDS: Metoprolol(XL)Succ 25 MG Tablet PO (22:14)
[2018-07-25] MEDS: Losartan Potassium 50 MG Tablet PO (22:14)
[2018-07-25] MEDS: Clopidogrel Bisulfate 75 MG Tablet PO (22:14)
[2018-07-25] MEDS: Heparin Injection (Vial) 5,000 UNIT/ML VIAL 5000 UNIT SC (22:19)
[2018-07-26] VITALS (20 sets, daily range): BP systolic 101–139; BP diastolic 56–74; PULSE 54–73; RESP 16–18; TEMP 36.5–37.1; O2SAT 94–98; BMI 36.8
[2018-07-26] MEDS: Heparin Injection (Vial) 5,000 UNIT/ML VIAL 5000 UNIT SC ×2 (05:08→13:55)
[2018-07-26 06:10] LABS: Cholesterol 133 mg/dL (200); High Density Lipoprotein 54 mg/dL; Triglycerides 122 mg/dL; Very Low Density Lipoprotein 24 mg/dL (5-40)
[2018-07-26] MEDS: 0.9% Normal Saline 1,000 ML 100 ML IV ×2 (06:56→18:02)
[2018-07-26] MEDS: Ipratropium/Albuterol Sulfate 3 ML AMPUL.NEB INHALATION ×3 (07:02→20:24)
--- NOTE | 2018-07-26 07:45 | MRI_ITS ---
STUDY: MRI BRAIN WITHOUT CONTRAST REASON FOR EXAM: Female, 72 years old. CVA. Speech difficulty. TECHNIQUE: Standardized multiplanar fat and water weighted pulse sequences were obtained. COMPARISON: 03/15/2017. CT head without contrast 07/25/2018. FINDINGS: No restricted diffusion to suspect acute or subacute ischemic infarct. No remote cortical-based ischemic infarct. Nonspecific solitary T2 FLAIR hyperintensity focus in the left superior frontal lobe gyrus (series 6, image 19; series 9, image 18). No mass effects and no midline shift. Normal size of the ventricles and extra-axial spaces for the patient's age. Normal white matter tracts of the supratentorial brain. Normal bilateral basal ganglia. Normal thalami. There is no extra-axial fluid accumulation. Normal flow voids within the major intracranial circulation suggesting patency by spin echo criteria. Normal sella turcica, pituitary gland, infundibular stalk, optic chiasm and hypothalamus. Normal tectal plate and pineal gland. Normal midbrain, yennifer and medulla. Normal cerebellum. Normal basal cisterns. Normal bilateral temporal bones. Normal bilateral internal auditory canals. No demonstrated orbital abnormality, within the constraints of a routine brain study. Normal visualized paranasal sinuses. Normal calvarium and skull base. Normal visualized soft tissue structures. Prominent anterior and posterior marginal spurs at C3-C4 disc level with Modic type II degenerative vertebral marrow fatty changes underneath the vertebral endplates. MRI/Brain without Contrast IMPRESSION: 1. No MRI evidence of acute or subacute ischemic infarct. 2. Small solitary nonspecific gliosis in the left superior frontal lobe gyrus is presumably from remote injury. This was present previously and is unchanged. Electronically Signed: Lee Acosta MD at 9:09 EDT , Service support ,
--- NOTE | 2018-07-26 07:45 | MRI_ITS ---
STUDY: MRA NECK WITHOUT CONTRAST REASON FOR EXAM: Female, 72 years old. CVA. Speech difficulty. TECHNIQUE: Source images were obtained, MIPs were performed. The study was performed unenhanced. COMPARISON: None. FINDINGS: RIGHT CAROTID ARTERIES: Normal right common carotid artery (CCA). Normal right common carotid bulb. Normal origin of the right internal carotid (ICA) artery without a hemodynamically significant stenosis. Normal visualized cervical portion of the right internal carotid artery. Normal origin of the right external carotid artery (ECA). LEFT CAROTID ARTERIES: Normal left common carotid artery (CCA). Normal left common carotid bulb. Normal origin of the left internal carotid (ICA) artery without a hemodynamically significant stenosis. Normal visualized cervical portion of the left internal carotid artery. Normal origin of the left external carotid artery (ECA). VERTEBRAL ARTERIES: Normal antegrade flow within the bilateral vertebral artery without a hemodynamically significant stenosis. They are codominant. AORTIC ARCH: Widely patent aortic arch and origins of great vessels. MRI/MRA Neck without Contrast IMPRESSION: 1. Normal MRA of both cervical common carotid arteries, common carotid artery bifurcations, internal and external carotid arteries. 2. Normal MRA of the aortic arch and the origins of the great vessels. 3. Normal bilateral vertebral arteries. They are codominant. 4. Normal subclavian origins of both vertebral arteries. Electronically Signed: Lee Acotsa MD at 9:12 EDT , Service support ,
--- NOTE | 2018-07-26 07:45 | MRI_ITS ---
STUDY: MRA OF THE HEAD WITHOUT CONTRAST REASON FOR EXAM: Female, 72 years old. CVA. Speech difficulty. TECHNIQUE: 3-D [id number] (TOF) imaging was performed with MIPs. The study was performed unenhanced. COMPARISON: None. FINDINGS: Normal bilateral petrous carotid arteries. Normal right cavernous carotid artery with a normal supraclinoid bifurcation. Normal left cavernous carotid artery with a normal supraclinoid bifurcation. Normal right A1 segment of the anterior cerebral artery. Normal left A1 segment of the anterior cerebral artery. Normal intact anterior communicating artery (ACOM). Normal bilateral A2 segments of the anterior cerebral arteries. Normal right M1 and M2 segments of the middle cerebral arteries, with a normal M1 bifurcation. Normal left M1 and M2 segments of the middle cerebral arteries, with a normal M1 bifurcation. No visible right posterior communicating artery (PCOM). No visible left posterior communicating artery (PCOM). Normal bilateral vertebral arteries. Normal basilar artery with a normal basilar bifurcation. The visualized bilateral superior cerebellar (SCA) arteries are normal. Normal bilateral P1, P2 and visualized P3 segments of the posterior cerebral arteries. There is no demonstrated aneurysm of the [place]. There is no major vessel occlusion or hemodynamically significant stenosis. There is no demonstrated abnormality of the visualized brain. MRI/MRA Head ONLY without Contrast IMPRESSION: Normal MRA of the head Electronically Signed: Lee Acosta MD at 9:10 EDT , Service support ,
--- NOTE | 2018-07-26 10:41 | PCM.PN.HOSP ---
Patient Problems: Active and Suspected Problems (Last Updated 06/29/18 @ 10:07 by Sharon Cohen) TIA (transient ischemic attack) (Acute) Chest pain (Acute) NAKIA (acute kidney injury) (Acute) Subjective: Patient seen and examined. She had no complaints and felt well. Expressive episode from yesterday had resolved. She states she does have a history of recurrent TIAs and mini strokes and has been on aspirin. She denies any history of seizure and did not have any loss of consciousness or urinary or fecal incontinence with this episode. She complained of a mild cough which is nonproductive. She denies any fever chills, any chest pain, any shortness of breath, abdominal pain, any diarrhea vomiting. Review of systems otherwise negative. Labs and vitals reviewed. Vitals/I&O's: Vital Signs Temp Pulse Resp BP Pulse Ox 97.8 F 55 L 18 122/70 H 98 07/26/18 09:27 07/26/18 09:27 07/26/18 09:27 07/26/18 09:27 07/26/18 09:27 Oxygen Delivery Method Room Air Weight: 195 lb 5.273 oz Body Mass Index (BMI) 36.8 Intake and Output for Last 24 Hours 07/24/18 07/25/18 07/26/18 23:59 23:59 23:59 Intake Total 217 / 217 539 / 539 Output Total 300 / 300 Balance 217 / 217 239 / 239 General: Alert, Oriented x3, Cooperative, No apparent distress HEENT: Atraumatic, PERRLA, EOMI, Normocephalic Oral: Moist Mucosa Neck: Supple, No JVD, Negative Carotid Bruits Lungs: Clear to auscultation, Normal air movement, No rhonchi, No wheeze, No rales Cardiovascular: Regular rate, Regular Rhythm, Normal S1, Normal S2, No murmurs Abdomen: Bowel Sounds Present, Soft, Non Tender Extremities: No clubbing, No cyanosis, No edema, Capillary Refill Less than 3 Seconds Skin: No rashes, No breakdown Musculoskeletal: No Tenderness to Palpation of Joints or Extremities Lymphatic: No Cervical, Supraclavicular, or Inguinal Adenopathy Neurological: Cranial nerves II-XII grossly intact, Neuro grossly intact, Motor Exam 5/5 strength throughout Psych/Mental Status: Normal Affect, Appropriate, Alert and oriented to time, place, person, mood and affect Laboratory Results 07/25/18 21:04: Magnesium 1.8, TSH 0.30 L, Free T4 1.40 07/25/18 21:04: Troponin I < 0.015 07/26/18 00:20: Troponin I < 0.015 07/26/18 05:18: Triglycerides 122, Cholesterol 133, LDL Cholesterol 55, VLDL Cholesterol 24, HDL Cholesterol 54 Current Medications Acetaminophen (Tylenol) 650 mg PO Q4H PRN PRN PRN Reason: Headache/Temp>99F Acetaminophen (Tylenol) 650 mg RECTAL Q4H PRN PRN PRN Reason: Headache/Temp>99F Acetaminophen (Tylenol Liquid) 650 mg NG Q4H PRN PRN PRN Reason: Headache/Temp>99F Hydrocodone Bitart/Acetaminophen ([place] 5mg-325mg) 1 - 2 tablet PO Q6H PRN PRN PRN Reason: Moderate-severe pain Al Hydroxide/Mg Hydroxide (Mylanta Ii) 30 ml PO Q6H PRN PRN PRN Reason: Gastric burning Albuterol Sulfate (Ventolin Aerosols) 2.5 mg INHALATION Q2H PRN PRN PRN Reason: dyspnea, wheezing Albuterol/Ipratropium (Duoneb) 3 ml INHALATION Q6HWA.RT [facility] Last Admin: 07/26/18 07:02 Dose: 3 ml Aspirin (Aspirin, Baby) 81 mg PO DAILY@0800 [facility] Atorvastatin Calcium (Lipitor) 80 mg PO DAILY [facility] Citalopram Hydrobromide (Celexa) 20 mg PO DAILY [facility] Clopidogrel Bisulfate (Plavix) 75 mg PO DAILY [facility] Last Admin: 07/25/18 22:14 Dose: 75 mg Heparin Sodium (Porcine) (Heparin Na) 5,000 unit SC Q8 [facility] Last Admin: 07/26/18 05:08 Dose: 5,000 unit Sodium Chloride () 1,000 mls @ 100 mls/hr IV .Q10H [facility] Last Admin: 07/26/18 06:56 Dose: 100 mls/hr Labetalol HCl (Trandate) 10 mg IV Q10M PRN PRN Reason: MAINTAIN SBP GOALS Stop: 07/26/18 20:43 Levothyroxine Sodium (Synthroid) 88 mcg PO DAILY@0600 [facility] Last Admin: 07/26/18 04:49 Dose: Not Given Losartan Potassium (Cozaar) 50 mg PO BID [facility] Last Admin: 07/25/18 22:14 Dose: 50 mg Magnesium Hydroxide (Milk Of Magnesia) 30 ml PO DAILY PRN PRN Reason: Constipation Metoprolol Succinate (Toprol Xl (Beta Adrian)) 25 mg PO BID [facility] Last Admin: 07/25/18 22:14 Dose: 25 mg Morphine Sulfate () 1 - 2 mg IV Q4H PRN PRN PRN Reason: PAIN Nitroglycerin (Nitrostat) 0.4 mg SUBLINGUAL Q5M PRN PRN Reason: Angina pain Ondansetron HCl (Zofran) 4 mg IV Q8H PRN PRN PRN Reason: NAUSEA Promethazine HCl (Phenergan) 12.5 mg IV Q6H PRN PRN PRN Reason: NAUSEA/VOMITING Sodium Chloride () 5 - 30 ml IV UD PRN PRN Reason: SALINE FLUSH Medical Necessity - Tobacco Use Smoking Status: Never smoker Tobacco Use: Non-smoker Assessment/Plan All Active Problems (Last Updated 06/29/18 @ 10:07 by Sharon Cohen) TIA (transient ischemic attack) (Acute) Chest pain (Acute) NAKIA (acute kidney injury) (Acute) 1. TIA has a history of multiple TIAs presented with expressive aphasia and RUE weakness. CT brain was negative MRI/MRA of brain and neck were also negative had 2D echo in 04/14: echo therefore deferred duering this admission neurology consulted on aspirin; plavix added. Will discuss with neurology about starting aggrenox for stroke prophylaxis symptoms have completely resolved. await neuro rec's; may need EEG to make sure this is not a seizure 2. Atypical Chest pain troponin x 3 were negative. CTPA was negaitve. EKG showed normal sinus rhythm with no acute chest findings had a negative stress test on 07/16/18 SL nitroglycerin prn. aspirin 81mg daily 3. NAKIA likely pre-renal Cr was 1.31 on admission; baseline ~ 1.3 on IVF will monitor Cr 4. Hypothyroidism: stable. On synthroid 5. Chronic asthma: on breathing treatment with duonebs 6. Hypertension: on losartan and metoprolol. 7. Anxiety and depression: statins. lipid profile showed LDL of 55 and total cholesterol of 133. DVT prophylaxis: lovwenox Code Visit OBSV E&M: 46472 Subsequent observation care L2
[2018-07-26] MEDS: Metoprolol(XL)Succ 25 MG Tablet PO ×2 (11:13→21:10)
[2018-07-26] MEDS: Losartan Potassium 50 MG Tablet PO ×2 (11:13→21:10)
[2018-07-26] MEDS: Citalopram 20 MG Tablet PO (11:13)
[2018-07-26] MEDS: Atorvastatin Calcium 80 MG Tablet PO (11:13)
[2018-07-26] MEDS: Aspirin 81 MG TAB.CHEW PO (11:13)
[2018-07-26] MEDS: Clopidogrel Bisulfate 75 MG Tablet PO (11:13)
--- NOTE | 2018-07-26 12:59 | PCM.CONS.GEN ---
Problem List (1) Speech disturbance Status: Acute Qualifiers: Speech disturbance type: unspecified speech disturbance Qualified Code(s): R47.9 - Unspecified speech disturbances Reason for Consult Date of Consultation: 07/26/18 Reason for Consultation: speech disturbances History of Present Illness: The patient is a 72 year old CF with PMH HTN, HLD, H/O TIA, hypothyroidism admitted with speech disturbances. Per patient she was at work yesterday (07/25/18) when she had speech disturbances at work in the afternoon, had difficulty in getting her words out, then her speech was slow, the episode lasted for about half hour per patient, also had some frontal LEVY with the event, but denies any visual disturbances, focal motor weakness or sensory loss. Per patient she had multiple speech disturbance episode similar to this one in the past for about last 11/2 yr, had about 5 episodes this year per patient and all are stereotypical but would last for about 10 minutes before improving, with one of the episode had visual disturbances where she could not see out of the left side of the eye and she had been told these episodes could be TIA. Per patient in the past she had episodes where she would have focal one sided numbness with weakness which would improve, has had multiple such episodes in the past but they stopped when she changed her job few years ago per patient. She denies any witnessed seizures, denies loss of awareness with any of the episodes, denies tongue bite or urinary incontinence. Per patient she takes ASA daily at baseline, occasionally uses cane to ambulate, denies any frequent falls, does drive and does not need any assistance for her ADLs. MRI brain done during this admission reported nothing acute, MRA head/neck reported no occlusion or hemodynamically significant stenosis. [] Past Medical History Past Medical History (Chronic Problems): Chronic Problems (Last Updated 06/29/18 @ 10:07 by Sharon Cohen) Obesity (BMI 30-39.9) (Chronic) Diastolic dysfunction (Chronic) Hyperlipidemia (Chronic) Hypertension (Chronic) Asthma (Chronic) Hypothyroidism (Chronic) Generalized osteoarthritis (Chronic) Medical History: Medical History (Last Updated 06/29/18 @ 10:07 by Sharon Cohen) Diastolic dysfunction (Chronic) I51.9 Hyperlipidemia (Chronic) E78.5 Hypertension (Chronic) I10 Asthma (Chronic) J45.909 Hypothyroidism (Chronic) E03.9 Generalized osteoarthritis (Chronic) M15.9 History of TIA (transient ischemic attack) and stroke Z86.73 Osteoarthritis M19.90 Plantar fasciitis M72.2 Hypoglycemia E16.2 Mini stroke I63.9 possible [place] Allergies sulfadimethoxine Allergy (Mild, Verified 07/25/18 17:04) unknown Home Medications: Ambulatory Orders Medication Instructions Recorded levothyroxine 88 mcg tablet 88 mcg PO QDAY 06/27/18 aspirin 81 mg tablet,delayed 81 mg PO QDAY 06/29/18 release atorvastatin 40 mg tablet 40 mg PO DAILY 06/29/18 citalopram 20 mg tablet 20 mg PO QDAY 06/29/18 metoprolol succinate ER 25 mg 25 mg PO BID tab 06/29/18 tablet,extended release 24 hr Losartan Potassium [Losartan 50 mg PO BID 07/25/18 Potassium] Surgical History: Surgical History (Last Reviewed 06/29/18 @ 10:04 by Sharon Cohen) History of hernia repair Z98.890, Z87.19 History of hysterectomy Z90.710 History of tonsillectomy and adenoidectomy Z98.890 History of tubal ligation Z98.51 H/O: hysterectomy Z98.890, Z90.710 1993 S/P hernia repair Z98.890, Z87.19 S/P tonsillectomy Z90.89 Surgical History: - - Hernia repair, total abdominal hysterectomy, tonsillectomy, bilateral tubal ligation. 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 Lives: With Family Smoking Status: Never smoker Tobacco Use: Non-smoker Alcohol: Rare Drugs: None - *Family History Maternal Family History: Family History (Last Reviewed 06/29/18 @ 10:04 by Sharon Cohen) Father Cancer CVA (cerebral vascular accident) Hypertension CAD (coronary artery disease) Brother Cancer Kidney disease Mother Hypertension CAD (coronary artery disease) Kidney disease Brother Cancer History Items: Diabetes, High Cholesterol, Heart Disease, Hypertension Paternal Family History: Family History (Last Reviewed 06/29/18 @ 10:04 by Sharon Cohen) Father Cancer CVA (cerebral vascular accident) Hypertension CAD (coronary artery disease) Brother Cancer Kidney disease Mother Hypertension CAD (coronary artery disease) Kidney disease Brother Cancer History Items: Diabetes, High Cholesterol, Heart Disease, Hypertension Review of Systems Constitutional: Reports: - - complete ROS negative except as documented in HPI Patient Problems: Active and Suspected Problems (Last Updated 06/29/18 @ 10:07 by Sharon Cohen) TIA (transient ischemic attack) (Acute) Chest pain (Acute) NAKIA (acute kidney injury) (Acute) Speech disturbance (Acute) - Physical Exam General: Alert HEENT: Normocephalic Neck: Supple Lungs: Clear to auscultation Cardiovascular: Normal S1, Normal S2 Abdomen: Bowel Sounds Present Extremities: No cyanosis Skin: No rashes Musculoskeletal: No Tenderness to Palpation of Joints or Extremities Neurological: Cranial nerves II-XII grossly intact, Deep Tendon Reflexes 2+/4 and Symmetrical, Neuro grossly intact, Motor Exam 5/5 strength throughout, Muscle tone normal, Sensory exam intact to light touch and pain, Coordination normal Psych/Mental Status: Normal Affect Vital Signs Temp Pulse Resp BP Pulse Ox 97.8 F 66 18 122/70 H 98 07/26/18 09:27 07/26/18 11:13 07/26/18 09:27 07/26/18 09:27 07/26/18 09:27 Oxygen Delivery Method Room Air Weight: 88.6 kg Body Mass Index (BMI) 36.8 Intake and Output for Last 24 Hours 07/24/18 07/25/18 07/26/18 23:59 23:59 23:59 Intake Total 217 / 217 899 / 899 Output Total 300 / 300 Balance 217 / 217 599 / 599 Laboratory Tests Past 24 Hrs 07/25/18 07/25/18 07/26/18 21:04 21:04 00:20 Magnesium 1.8 Troponin I < 0.015 < 0.015 Triglycerides Cholesterol LDL Cholesterol VLDL Cholesterol HDL Cholesterol TSH 0.30 L Free T4 1.40 07/26/18 05:18 Magnesium Troponin I Triglycerides 122 Cholesterol 133 LDL Cholesterol 55 VLDL Cholesterol 24 HDL Cholesterol 54 TSH Free T4 Assessment/Plan All Active Problems (Last Updated 06/29/18 @ 10:07 by Sharon Cohen) TIA (transient ischemic attack) (Acute) Chest pain (Acute) NAKIA (acute kidney injury) (Acute) Speech disturbance (Acute) The patient is a 72 year old CF with PMH HTN, HLD, H/O TIA, hypothyroidism admitted with speech disturbances. Per patient she was at work yesterday (07/25/18) when she had speech disturbances at work in the afternoon, had difficulty in getting her words out, then her speech was slow, the episode lasted for about half hour per patient, also had some frontal LEVY with the event, but denies any visual disturbances, focal motor weakness or sensory loss. Per patient she had multiple speech disturbance episode similar to this one in the past for about last 11/2 yr, had about 5 episodes this year per patient and all are stereotypical but would last for about 10 minutes before improving, with one of the episode had visual disturbances where she could not see out of the left side of the eye and she had been told these episodes could be TIA. Per patient in the past she had episodes where she would have focal one sided numbness with weakness which would improve, has had multiple such episodes in the past but they stopped when she changed her job few years ago per patient. She denies any witnessed seizures, denies loss of awareness with any of the episodes, denies tongue bite or urinary incontinence. Per patient she takes ASA daily at baseline, occasionally uses cane to ambulate, denies any frequent falls, does drive and does not need any assistance for her ADLs. MRI brain done during this admission reported nothing acute, MRA head/neck reported no occlusion or hemodynamically significant stenosis Impression Speech disturbances, ? TIA Plan -On ASA, started on Plavix on admission, dual AP for 3 weeks then switch to single AP. Bleeding risks discussed with patient -ON Lipitor 80 mg PO q hs -MRI brain and MRA head/neck reviewed -Recommend EEG -TTE-05/10/18- EF 65% -LDL-55, [id number] -Labs reviewed- found to have NAKIA on admission -Stroke risk factors discussed and stroke education provided -Goal BP < 130/80 mmHg and Goal Hba1c <7% -Recommend 30 day event recorder -GI/DVT prophylaxis -PT/OT/ST -Fall precautions -Further medical management per primary team -Follow up with Neurology as outpatient in 2-3 weeks -Please call with questions if any -Thank you for allowing us to participate in patient's care and management I spent 60 minutes taking history, doing physical examination, reviewing medical records, coordinating care and counseling the patient. Code Visit Inpatient E&M: [id number] Init Hosp L3
--- NOTE | 2018-07-26 13:12 | CON.PCM_ITS ---
Problem List (1) Speech disturbance Status: Acute Qualifiers: Speech disturbance type: unspecified speech disturbance Qualified Code(s): R47.9 - Unspecified speech disturbances Reason for Consult Date of Consultation: 07/26/18 Reason for Consultation: speech disturbances History of Present Illness: The patient is a 72 year old CF with PMH HTN, HLD, H/O TIA, hypothyroidism admitted with speech disturbances. Per patient she was at work yesterday () when she had speech disturbances at work in the afternoon, had difficulty in getting her words out, then her speech was slow, the episode lasted for about half hour per patient, also had some frontal LEVY with the event, but denies any visual disturbances, focal motor weakness or sensory loss. Per patient she had multiple speech disturbance episode similar to this one in the past for about last 11/2 yr, had about 5 episodes this year per patient and all are stereotypical but would last for about 10 minutes before improving, with one of the episode had visual disturbances where she could not see out of the left side of the eye and she had been told these episodes could be TIA. Per patient in the past she had episodes where she would have focal one sided numbness with weakness which would improve, has had multiple such episodes in the past but they stopped when she changed her job few years ago per patient. She denies any witnessed seizures, denies loss of awareness with any of the episodes, denies tongue bite or urinary incontinence. Per patient she takes ASA daily at baseline, occasionally uses cane to ambulate, denies any frequent falls , does drive and does not need any assistance for her ADLs. MRI brain done during this admission reported nothing acute, MRA head/neck reported no occlusion or hemodynamically significant stenosis. [] Past Medical History Past Medical History (Chronic Problems): Chronic Problems (Last Updated 06/29/18 @ 10:07 by Sharon Cohen) Obesity (BMI 30-39.9) (Chronic) Diastolic dysfunction (Chronic) Hyperlipidemia (Chronic) Hypertension (Chronic) Asthma (Chronic) Hypothyroidism (Chronic) Generalized osteoarthritis (Chronic) Medical History: Medical History (Last Updated 06/29/18 @ 10:07 by Sharon Cohen) Diastolic dysfunction (Chronic) I51.9 Hyperlipidemia (Chronic) E78.5 Hypertension (Chronic) I10 Asthma (Chronic) J45.909 Hypothyroidism (Chronic) E03.9 Generalized osteoarthritis (Chronic) M15.9 History of TIA (transient ischemic attack) and stroke Z86.73 Osteoarthritis M19.90 Plantar fasciitis M72.2 Hypoglycemia E16.2 Mini stroke I63.9 possible [place] Allergies sulfadimethoxine Allergy (Mild, Verified 07/25/18 17:04) unknown Home Medications: Ambulatory Orders Medication Instructions Recorded levothyroxine 88 mcg tablet 88 mcg PO QDAY 06/27/18 aspirin 81 mg tablet,delayed 81 mg PO QDAY 06/29/18 release atorvastatin 40 mg tablet 40 mg PO DAILY 06/29/18 citalopram 20 mg tablet 20 mg PO QDAY 06/29/18 metoprolol succinate ER 25 mg 25 mg PO BID tab 06/29/18 tablet,extended release 24 hr Losartan Potassium [Losartan 50 mg PO BID 07/25/18 Potassium] Surgical History: Surgical History (Last Reviewed 06/29/18 @ 10:04 by Sharon Cohen) History of hernia repair Z98.890, Z87.19 History of hysterectomy Z90.710 History of tonsillectomy and adenoidectomy Z98.890 History of tubal ligation Z98.51 H/O: hysterectomy Z98.890, Z90.710 1993 S/P hernia repair Z98.890, Z87.19 S/P tonsillectomy Z90.89 Surgical History: - - Hernia repair, total abdominal hysterectomy, tonsillectomy , bilateral tubal ligation. 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 Lives: With Family Smoking Status: Never smoker Tobacco Use: Non-smoker Alcohol: Rare Drugs: None - *Family History Maternal Family History: Family History (Last Reviewed 06/29/18 @ 10:04 by Sharon Cohen) Father Cancer CVA (cerebral vascular accident) Hypertension CAD (coronary artery disease) Brother Cancer Kidney disease Mother Hypertension CAD (coronary artery disease) Kidney disease Brother Cancer History Items: Diabetes, High Cholesterol, Heart Disease, Hypertension Paternal Family History: Family History (Last Reviewed 06/29/18 @ 10:04 by Sharon Cohen) Father Cancer CVA (cerebral vascular accident) Hypertension CAD (coronary artery disease) Brother Cancer Kidney disease Mother Hypertension CAD (coronary artery disease) Kidney disease Brother Cancer History Items: Diabetes, High Cholesterol, Heart Disease, Hypertension Review of Systems Constitutional: Reports: - - complete ROS negative except as documented in HPI Patient Problems: Active and Suspected Problems (Last Updated 06/29/18 @ 10:07 by Sharon Cohen ) TIA (transient ischemic attack) (Acute) Chest pain (Acute) NAKIA (acute kidney injury) (Acute) Speech disturbance (Acute) - Physical Exam General: Alert HEENT: Normocephalic Neck: Supple Lungs: Clear to auscultation Cardiovascular: Normal S1, Normal S2 Abdomen: Bowel Sounds Present Extremities: No cyanosis Skin: No rashes Musculoskeletal: No Tenderness to Palpation of Joints or Extremities Neurological: Cranial nerves II-XII grossly intact, Deep Tendon Reflexes 2+/4 and Symmetrical, Neuro grossly intact, Motor Exam 5/5 strength throughout, Muscle tone normal, Sensory exam intact to light touch and pain, Coordination normal Psych/Mental Status: Normal Affect Vital Signs Temp Pulse Resp BP Pulse Ox 97.8 F 66 18 122/70 H 98 07/26/18 09:27 07/26/18 11:13 07/26/18 09:27 07/26/18 09:27 07/26/18 09:27 Oxygen Delivery Method Room Air Weight: 88.6 kg Body Mass Index (BMI) 36.8 Intake and Output for Last 24 Hours 07/24/18 07/25/18 07/26/18 23:59 23:59 23:59 Intake Total 217 / 217 899 / 899 Output Total 300 / 300 Balance 217 / 217 599 / 599 Laboratory Tests Past 24 Hrs 07/25/18 07/25/18 07/26/18 21:04 21:04 00:20 Magnesium 1.8 Troponin I < 0.015 < 0.015 Triglycerides Cholesterol LDL Cholesterol VLDL Cholesterol HDL Cholesterol TSH 0.30 L Free T4 1.40 07/26/18 05:18 Magnesium Troponin I Triglycerides 122 Cholesterol 133 LDL Cholesterol 55 VLDL Cholesterol 24 HDL Cholesterol 54 TSH Free T4 Assessment/Plan All Active Problems (Last Updated 06/29/18 @ 10:07 by Sharon Cohen) TIA (transient ischemic attack) (Acute) Chest pain (Acute) NAKIA (acute kidney injury) (Acute) Speech disturbance (Acute) The patient is a 72 year old CF with PMH HTN, HLD, H/O TIA, hypothyroidism admitted with speech disturbances. Per patient she was at work yesterday () when she had speech disturbances at work in the afternoon, had difficulty in getting her words out, then her speech was slow, the episode lasted for about half hour per patient, also had some frontal LEVY with the event, but denies any visual disturbances, focal motor weakness or sensory loss. Per patient she had multiple speech disturbance episode similar to this one in the past for about last 11/2 yr, had about 5 episodes this year per patient and all are stereotypical but would last for about 10 minutes before improving, with one of the episode had visual disturbances where she could not see out of the left side of the eye and she had been told these episodes could be TIA. Per patient in the past she had episodes where she would have focal one sided numbness with weakness which would improve, has had multiple such episodes in the past but they stopped when she changed her job few years ago per patient. She denies any witnessed seizures, denies loss of awareness with any of the episodes, denies tongue bite or urinary incontinence. Per patient she takes ASA daily at baseline, occasionally uses cane to ambulate, denies any frequent falls , does drive and does not need any assistance for her ADLs. MRI brain done during this admission reported nothing acute, MRA head/neck reported no occlusion or hemodynamically significant stenosis Impression Speech disturbances, ? TIA Plan -On ASA, started on Plavix on admission, dual AP for 3 weeks then switch to single AP. Bleeding risks discussed with patient -ON Lipitor 80 mg PO q hs -MRI brain and MRA head/neck reviewed -Recommend EEG -TTE-05/10/18- EF 65% -LDL-55, [id number] -Labs reviewed- found to have NAKIA on admission -Stroke risk factors discussed and stroke education provided -Goal BP < 130/80 mmHg and Goal Hba1c <7% -Recommend 30 day event recorder -GI/DVT prophylaxis -PT/OT/ST -Fall precautions -Further medical management per primary team -Follow up with Neurology as outpatient in 2-3 weeks -Please call with questions if any -Thank you for allowing us to participate in patient's care and management I spent 60 minutes taking history, doing physical examination, reviewing medical records, coordinating care and counseling the patient. Code Visit Inpatient E&M: [id number] Init Hosp L3
[2018-07-26 17:56] LABS: Hemoglobin A1c 5.5 % (4.2-6.3)
[2018-07-27] VITALS (10 sets, daily range): BP systolic 113–146; BP diastolic 60–80; PULSE 57–75; RESP 16–18; TEMP 36.1–37.1; O2SAT 94–97; BMI 36.8
[2018-07-27] MEDS: 0.9% Normal Saline 1,000 ML 100 ML IV (04:14)
[2018-07-27] MEDS: Levothyroxine 88 MCG Tablet PO (06:11)
[2018-07-27 06:42] LABS: Absolute Lymphocyte Count 2.27 X10^3/ul (0.83-4.51); Absolute Neutrophil Count 2.4 X10^3/uL (2.0-7.7); Basophil# 0.02 X10^3/uL; Basophil% 0.4 % (0-1); Eosinophil# 0.17 X10^3/uL; Eosinophils% 3.2 % (0-5); Hematocrit 37.2 % (37-47); Hemoglobin 12.3 g/dl (12.0-15.0); Lymphocyte # 2.27 X10^3/ul (4.0); Lymphocyte % 42.4 % (19-41); Mean Corp Hgb Conc 33.1 g/gl (32-36); Mean Corpuscular Hgb 30.1 pg (27.0-32.0); Mean Platelet Vol. 10.6 fl (6.2-12.0); Monocyte# 0.48 X10^3/uL; Neutrophil # 2.39 X10^3/uL (2.7-7.7); Neutrophil % 44.6 % (47-70); Platelet Count 212 K/mm3 (150-450); RBC Distribution Width CV 13.4 % (11.6-14.6); Red Blood Count 4.09 M/mm3 (4.2-5.4); White Blood Count 5.4 K/mm3 (4.4-11.0)
[2018-07-27 06:46] LABS: POSITIVE COUNT NO; POSITIVE DIFFERENTIAL NO; POSITIVE MORPHOLOGY NO
[2018-07-27 06:53] LABS: Anion Gap 8 (5-15); BUN 11 mg/dL (7-18); BUN/Creat Ratio 14.3 RATIO (10-20); Calcium,Total 8.3 mg/dL (8.5-10.1); Chloride 113 mmol/L (98-107); Creatinine, Serum 0.77 mg/dL (0.55-1.02); EST Glomerular Filtration Rate 79 mL/min (>60); Est Glom Filt Rate - Afr Amer 96 mL/min (>60); Glucose 79 mg/dL (74-106); Potassium 3.9 mmol/L (3.5-5.1); Sodium Level 145 mmol/L (136-145)
[2018-07-27] MEDS: Ipratropium/Albuterol Sulfate 3 ML AMPUL.NEB INHALATION (07:16)
[2018-07-27] MEDS: Aspirin 81 MG TAB.CHEW PO (08:01)
[2018-07-27] MEDS: Citalopram 20 MG Tablet PO (10:54)
[2018-07-27] MEDS: Atorvastatin Calcium 80 MG Tablet PO (10:55)
[2018-07-27] MEDS: Clopidogrel Bisulfate 75 MG Tablet PO (10:55)
[2018-07-27] MEDS: Losartan Potassium 50 MG Tablet PO (10:55)
[2018-07-27] MEDS: Metoprolol(XL)Succ 25 MG Tablet PO (10:55)
--- NOTE | 2018-07-27 11:48 | PCM.DC ---
- Discharge Diagnoses Current Active Problems: Current Active and Chronic Problems (Last Updated 06/29/18 @ 10:07 by Sharon Cohen) Obesity (BMI 30-39.9) (Chronic) TIA (transient ischemic attack) (Acute) Chest pain (Acute) NAKIA (acute kidney injury) (Acute) Speech disturbance (Acute) You will use the following diet at home:: Cardiac Discharge Activity: Return to Normal Activity Call your doctor if you observe: Numbness or Tingling, Shortness of breath, Dizziness, Fainting spells, Chest pain Allergies/Adverse Reactions: Allergies sulfadimethoxine Allergy (Mild, Verified 07/25/18 17:04) unknown Medications to take at Discharge levothyroxine 88 mcg tablet 88 mcg PO QDAY 06/27/18 aspirin 81 mg tablet,delayed release 81 mg PO QDAY 06/29/18 atorvastatin 40 mg tablet 40 mg PO DAILY 06/29/18 citalopram 20 mg tablet 20 mg PO QDAY 06/29/18 metoprolol succinate ER 25 mg tablet,extended release 24 hr 25 mg PO BID tab 06/29/18 Losartan Potassium 50 mg PO BID 07/25/18 Clopidogrel Bisulfate [Plavix] 75 mg PO DAILY #21 tab 07/27/18 The following prescriptions were given: Clopidogrel Bisulfate [Plavix] 75 mg PO DAILY #21 tab Primary Care Physician: Neno Rosenbaum Chi, MD [Primary Care Provider] - Please follow up with your Primary Care Physician in: 1 Week Test Results: Test results from this visit will be discussed in further detail at your follow-up appointment, if applicable. Please Follow Up With: Hector Burnett MD When: 2-3 Weeks Proposed Discharge Date: 07/27/18
--- NOTE | 2018-07-27 11:51 | PCM.DC.SUM ---
<Corina Addison - Last Filed: 07/27/18 12:01> Discharge Date and Diagnosis Date of Admission: 07/25/18 Date of Discharge: 07/27/18 - Primary Discharge Diagnosis Active and Suspected Problems (Last Updated 06/29/18 @ 10:07 by Sharon Cohen) 1. TIA 2. Non-cardiac chest pain 3. NAKIA - Secondary Discharge Diagnosis Chronic Problems (Last Updated 06/29/18 @ 10:07 by Sharon Cohen) Obesity (BMI 30-39.9) (Chronic) Diastolic dysfunction (Chronic) Hyperlipidemia (Chronic) Hypertension (Chronic) Asthma (Chronic) Hypothyroidism (Chronic) Generalized osteoarthritis (Chronic) Hospital Course and Treatment Imaging Results: Diagnostic Data Brain CT 07/25/18 17:17 IMPRESSION: Age consistent changes, no acute findings Electronically Signed: Eddy Engel MD at 17:51 EDT , Service support , Chest CTA 07/25/18 17:17 IMPRESSION: 1. No demonstrated pulmonary embolism or arterial dissection. 2. Poor expiratory effort with subsegmental atelectasis in the inferior left lung base. 3. Calcified lymph nodes seen in the left hilum. Electronically Signed: Eddy Frederick MD at 18:43 EDT , Service support , Brain MRI 07/26/18 07:45 IMPRESSION: 1. No MRI evidence of acute or subacute ischemic infarct. 2. Small solitary nonspecific gliosis in the left superior frontal lobe gyrus is presumably from remote injury. This was present previously and is unchanged. Electronically Signed: Lee Acosta MD at 9:09 EDT , Service support , Head MRA 07/26/18 07:45 IMPRESSION: Normal MRA of the head Electronically Signed: Lee Acosta MD at 9:10 EDT , Service support , Neck MRA 07/26/18 07:45 IMPRESSION: 1. Normal MRA of both cervical common carotid arteries, common carotid artery bifurcations, internal and external carotid arteries. 2. Normal MRA of the aortic arch and the origins of the great vessels. 3. Normal bilateral vertebral arteries. They are codominant. 4. Normal subclavian origins of both vertebral arteries. Electronically Signed: Lee Acosta MD at 9:12 EDT , Service support , Dr. Burnett- Neurology Operations: None Procedures: Electroencephalogram Summary of Care Provided: The patient is a 72 year old F admitted 07/25/2018 due to weakness, speech disturbance. She has a past medical history of hypertension, hyperlipidemia, chronic diastolic dysfunction, obesity, asthma, hypothyroidism, history of TIA. Patient also complained of intermittent chest pain on admission. Denies further chest pain. She had a recent echo 04/30/2018 which showed an EF of 65%, stage I diastolic dysfunction, trivial tricuspid valve insufficiency, RVSP 25 mmHg. She also underwent recent stress test 07/06/2018 which was negative for ischemia. EKG without evidence of ST-T changes. Troponin negative. CTA without evidence of pulmonary embolism or arterial dissection. Patient evaluated by neurology. MRI of brain negative, MRA of head and neck reported no occlusion or significant stenosis. Patient suspected to have TIA. Denies further neurologic symptoms or deficits. She will continue aspirin and Plavix for 3 weeks. Continue statin. Follow-up with neurology in 2-3 weeks. Patient underwent EEG, results pending. Will review prior to discharge. Patient will be discharged with 30 day event recorder. Patient also noted to have acute kidney injury which resolved with IV fluids. Follow-up with primary care physician in 1 week. General: Alert, Oriented x3, Cooperative, No apparent distress HEENT: Atraumatic, PERRLA, EOMI, Normocephalic Oral: Moist Mucosa Neck: Supple, No JVD, Negative Carotid Bruits Lungs: Clear to auscultation, Normal air movement Cardiovascular: Regular rate, Regular Rhythm, Normal S1, Normal S2, No murmurs Abdomen: Bowel Sounds Present, Soft, Non Tender Extremities: No clubbing, No cyanosis, No edema, Capillary Refill Less than 3 Seconds Skin: No rashes, No breakdown Musculoskeletal: No Tenderness to Palpation of Joints or Extremities Lymphatic: No Cervical, Supraclavicular, or Inguinal Adenopathy Neurological: Cranial nerves II-XII grossly intact, Neuro grossly intact Psych/Mental Status: Normal Affect, Appropriate Patient seen exam prior to discharge. Physical assessment as noted above. Patient stable for discharge home with the follow-up her conditions as noted above. This patient was seen by DEREK Baugh under the supervision of Dr. Ryder. Discharge Diet: Low fat/ Low Cholesterol Discharge Activity: Return to Normal Activity Call your doctor if you observe: Numbness or Tingling, Shortness of breath, Dizziness, Fainting spells, Chest pain Home Medications: Medications to take at Discharge levothyroxine 88 mcg tablet 88 mcg PO QDAY 06/27/18 aspirin 81 mg tablet,delayed release 81 mg PO QDAY 06/29/18 atorvastatin 40 mg tablet 40 mg PO DAILY 06/29/18 citalopram 20 mg tablet 20 mg PO QDAY 06/29/18 metoprolol succinate ER 25 mg tablet,extended release 24 hr 25 mg PO BID tab 06/29/18 Losartan Potassium 50 mg PO BID 07/25/18 Clopidogrel Bisulfate [Plavix] 75 mg PO DAILY #21 tab 07/27/18 Following Prescrptions Were Given to Patient: Clopidogrel Bisulfate [Plavix] 75 mg PO DAILY #21 tab Other Amb Orders: 30-Day Event Recorder [[facility]] Time Frame: 07/27/18, Location: None Selected Primary Care Physician: Neno Rosenbaum Chi, MD [Primary Care Provider] - Please follow up with your Primary Care Physician in: 1 Week Please Follow Up With: Hector Burnett MD When: 2-3 Weeks Disposition: Home Minutes spent on discharge:: 35 Patient Condition:: Stable Medical Necessity - Tobacco Use Smoking Status: Never smoker Tobacco Use: Non-smoker Meaningful Use Info Meaningful Use Diagnoses (Choose all that apply): None applicable <Latisha Ryder - Last Filed: 07/27/18 16:10> Discharge Date and Diagnosis - Secondary Discharge Diagnosis Chronic Problems (Last Updated 06/29/18 @ 10:07 by Sharon Cohen) Obesity (BMI 30-39.9) (Chronic) Diastolic dysfunction (Chronic) Hyperlipidemia (Chronic) Hypertension (Chronic) Asthma (Chronic) Hypothyroidism (Chronic) Generalized osteoarthritis (Chronic) Hospital Course and Treatment Summary of Care Provided: Patient seen by Corina REED under my supervision The patient is a 72 year old F with past medical history as listed above. She was admitted on 07/17/2018 with a complaint of weakness and expressive aphasia with intermittent chest pain. She was admitted and managed for TIA and chest pain. 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 Recent echo had been done on 04/30/2018 with findings as documented above and so an echo was deferred during this admission. Troponins and EKG were negative. CT was negative for any PE or aortic dissection. MRI of the brain was negative and MRA of the head and neck showed no significant findings. She had an EEG done. Neurology. Patient remained stable and was started on Plavix in addition to the aspirin that she had been on. Neurology was consulted. Per neurology, patient is to have Plavix and aspirin for 3 weeks and after was continued only on aspirin. She started on statin. A1c was within normal limits. She was discharged with a 30 day loop recorder and she is follow-up with neurology in 2-3 weeks. Of note, patient during admission also developed DKA which resolved with initiation of IV fluids. EEG done on 07/27/2018 was a normal awake EEG. She remained stable and was discharged on 07/27/2018 to follow-up with her primary care doctor and neurology. Patient seen and examined prior to discharge. She had no complaints and felt well. She denied any dizziness, headache, shortness of breath, fever chills, chest pain, abdominal pain, diarrhea or vomiting. 12 point review of systems otherwise negative. Labs and vitals reviewed. Home medications reviewed and reconciled. o/e: Vital Signs Height 5 ft 1 in Weight: 195 lb 5.273 oz Weight in Pounds 195.3 lbs Pulse Ox 95 Temperature 98.8 F Pulse Rate 65 Respiratory Rate 18 Blood Pressure [2nd BP] 184/75 Blood Pressure 113/60 Blood Pressure Position [2nd Semi-Fowlers BP] Blood Pressure Position Semi-Fowlers General: Alert, Oriented x3, Cooperative, No apparent distress HEENT: Atraumatic, PERRLA, EOMI, Normocephalic Oral: Moist Mucosa Neck: Supple, No JVD, Negative Carotid Bruits Lungs: Clear to auscultation, Normal air movement Cardiovascular: Regular rate, Regular Rhythm, Normal S1, Normal S2, No murmurs Abdomen: Bowel Sounds Present, Soft, Non Tender Extremities: No clubbing, No cyanosis, No edema, Capillary Refill Less than 3 Seconds Skin: No rashes, No breakdown Musculoskeletal: No Tenderness to Palpation of Joints or Extremities Lymphatic: No Cervical, Supraclavicular, or Inguinal Adenopathy Neurological: Cranial nerves II-XII grossly intact, Neuro grossly intact Psych/Mental Status: Normal Affect, Appropriate Plan as stated above. Agree with rest of Corina Addison NP-C's note. [] Code Visit Inpatient E&M: 19865 Disch Hosp
--- NOTE | 2018-07-27 15:00 | EEG ---
- Electroencephalogram Date of service 07/27/2018 History EEG is being done in this 72 yr F to rule out seizures EEG Description: This is an 18 channel EEG with 10-20 lead placement system. Bipolar montages, Referential and Circumferential montages were reviewed. Photic stimulation and Hyperventilation were performed. The posterior dominant rhythm is 9 HZ synchronous, symmetric, reacting to eye opening and closing. Photo stimulation elicited normal driving response but no abnormal photoparoxysmal response, Hyperventilation did not elicit any abnormal photoparoxysmal response. Sleep was identified. There is no abnormal background slowing noted. Muscle artefact and EKG artefact noted during the record. There was no epileptiform discharges or electrographic seizures noted during this recording. EEG Interpretation This is a normal awake and asleep EEG. There is no epileptiform discharges or electrographic seizures noted during the record.
== END 2018-07-27 11:49 | disposition home or self-care (01) ==
LOC: ED 18:19 → PCU 19:55
PROVIDERS: Psychiatry & Neurology Neurology; Admitting Provider Family Medicine; Emergency Provider Emergency Medicine; Family Provider Family Medicine Geriatric Medicine; PCP Family Medicine Geriatric Medicine; Visit Provider Student in an Organized Health Care Education/Training Program
DX: G45.9 Transient cerebral ischemic attack, unspecified (principal); R07.89 Other chest pain; N17.9 Acute kidney failure, unspecified; R47.81 Slurred speech; E03.9 Hypothyroidism, unspecified; E78.5 Hyperlipidemia, unspecified; I11.0 Hypertensive heart disease with heart failure; I50.9 Heart failure, unspecified; J45.909 Unspecified asthma, uncomplicated; R40.2410 Glasgow coma scale score 13-15, unspecified time; M15.9 Polyosteoarthritis, unspecified; R47.01 Aphasia; F41.9 Anxiety disorder, unspecified; F32.9 Major depressive disorder, single episode, unspecified; E66.9 Obesity, unspecified; Z79.899 Other long term (current) drug therapy; Z79.82 Long term (current) use of aspirin; Z68.36 Body mass index [BMI] 36.0-36.9, adult; Z71.3 Dietary counseling and surveillance
CPT/HCPCS: 36415; 70450; 70544; 70547; 70551; 71275; 80048; 80061; 82962; 83036; 83735; 84439; 84443; 84484; 85025; 85610; 85730; 93005; 94640; 96360; 96361; 96372; 97162; 97166; 97802; 99218; 99284; J7030; Q9967; A4216; G0378

== ENCOUNTER → 2018-09-08 09:29 | Outpatient (CLI) | payer MEDICARE, SELFPAY ==
[2018-09-08 12:06] LABS: Absolute Lymphocyte Count 2.26 X10^3/ul (0.83-4.51); Absolute Neutrophil Count 3.2 X10^3/uL (2.0-7.7); Basophil# 0.03 X10^3/uL; Basophil% 0.5 % (0-1); Eosinophil# 0.16 X10^3/uL; Eosinophils% 2.5 % (0-5); Hematocrit 42.1 % (37-47); Lymphocyte # 2.26 X10^3/ul (4.0); Lymphocyte % 35.2 % (19-41); Mean Corp Hgb Conc 33.3 g/gl (32-36); Mean Corpuscular Hgb 30.2 pg (27.0-32.0); Mean Corpuscular Volume 90.7 fL (81-99); Mean Platelet Vol. 11.2 fl (6.2-12.0); Monocyte% 10.9 % (0-10); Neutrophil # 3.24 X10^3/uL (2.7-7.7); Neutrophil % 50.4 % (47-70); Platelet Count 251 K/mm3 (150-450); RBC Distribution Width SD 42.6 fl (35.1-43.9); Red Blood Count 4.64 M/mm3 (4.2-5.4); White Blood Count 6.4 K/mm3 (4.4-11.0)
[2018-09-08 12:08] LABS: POSITIVE COUNT NO; POSITIVE DIFFERENTIAL NO; POSITIVE MORPHOLOGY NO
[2018-09-08 12:19] LABS: Vitamin D,25 Hydroxy 27.8 ng/mL (29.95-100.01)
[2018-09-08 12:23] LABS: ALB/GLOB Ratio 1.1 RATIO (0.9-2.4); AST(SGOT) 21 U/L (15-37); Alanine Aminotransfer ALT/SGPT 32 U/L (13-56); Albumin, Serum 3.4 g/dL (3.2-5.0); Alkaline Phosphatase 88 U/L (45-117); Anion Gap 5 (5-15); BUN 14 mg/dL (7-18); BUN/Creat Ratio 14.3 RATIO (10-20); Calcium,Total 8.6 mg/dL (8.5-10.1); Chloride 106 mmol/L (98-107); Cholesterol 152 mg/dL (200); Creatinine, Serum 0.98 mg/dL (0.55-1.02); EST Glomerular Filtration Rate 60 mL/min (>60); Est Glom Filt Rate - Afr Amer 72 mL/min (>60); Globulin 3.2 g/dL (2.2-4.2); Glucose 88 mg/dL (74-106); High Density Lipoprotein 61 mg/dL; Potassium 4.2 mmol/L (3.5-5.1); Protein, Total 6.6 g/dL (6.4-8.2); Sodium Level 138 mmol/L (136-145); Thyroid Stim Hormone (TSH) 0.12 uIU/mL (0.358-3.74); Triglycerides 114 mg/dL; Very Low Density Lipoprotein 23 mg/dL (5-40)
== END ==
PROVIDERS: Family Provider Family Medicine Geriatric Medicine; PCP Family Medicine Geriatric Medicine; Visit Provider Family Medicine Geriatric Medicine
DX: E55.9 Vitamin D deficiency, unspecified (principal); I10 Essential (primary) hypertension
CPT/HCPCS: 36415; 80053; 80061; 82306; 84443; 85025

== ENCOUNTER → 2018-09-18 09:30 | Outpatient (CLI) | payer MEDICARE, SELFPAY | PROVIDERS: Family Provider Family Medicine Geriatric Medicine; PCP Family Medicine Geriatric Medicine; Referring Provider Nurse Practitioner Acute Care; Visit Provider Nurse Practitioner Acute Care | DX: G47.33 Obstructive sleep apnea (adult) (pediatric) (principal); R06.83 Snoring | CPT/HCPCS: 95806 ==

== ENCOUNTER → 2018-11-03 21:23 | Outpatient (CLI) | payer MEDICARE, SELFPAY | PROVIDERS: Family Provider Family Medicine Geriatric Medicine; PCP Family Medicine Geriatric Medicine; Referring Provider Nurse Practitioner Acute Care; Visit Provider Nurse Practitioner Acute Care | DX: G47.33 Obstructive sleep apnea (adult) (pediatric) (principal) | CPT/HCPCS: 95811 ==

== ENCOUNTER → 2018-11-13 14:04 | Outpatient (CLI) | payer MEDICARE, SELFPAY ==
[2018-11-13 15:03] LABS: Thyroid Stim Hormone (TSH) 0.52 uIU/mL (0.358-3.74)
--- OUTSIDE RECORDS SUMMARY | 2019-02-15 06:04 | XMS RPT_ITS ---
:1945 Author Organization [place] Support Name Relationship Address Phone RON ROBERTS Unavailable [address] + [place] [address] [place] Unavailable [address] + [place] [address] CRISELDA FREEMAN Unavailable [address] + [address] [place] [address] RON ROBERTS Unavailable [address] + [place] [address] [place] Unavailable [address] + [place] [address] CRISELDA FREEMAN Unavailable [address] [place] [address] RON ROBERTS Unavailable [address] + [place] [address] [place] Unavailable [address] + [place] [address] CRISELDA FREEMAN Unavailable [address] + [address] [place] [address] RON ROBERTS Unavailable [address] + [place] [address] [place] Unavailable [address] + [place] [address]CRISELDA MICHEL Unavailable [address] [place] [address] RON ROBERTS Unavailable [address] + [place] [address] [place] Unavailable [address] + [place] [address]CRISELDA MICHEL Unavailable [address] [place] [address] RON ROBERTS Unavailable [address] + [place] [address] CHE[place] Unavailable [address] + [place] [address] CRISELDA FREEMAN Unavailable [address] + [address] [place] [address] RON ROBERTS Unavailable [address] + [place] [address] CHE[place] Unavailable [address] + [place] [address] CRISELDA FREEMAN Unavailable [address] + [address] [place] [address] RON ROBERTS Unavailable [address] + [place] [address] CHE[place] Unavailable [address] + [place] [address] CRISELDA FREEMAN Unavailable [address] + [address] [place] [address] RON ROBERTS Unavailable [address] + [place] [address] CHE[place] Unavailable [address] + [place] [address] CRISELDA FREEMAN Unavailable [address] + [address] [place] [address] RON ROBERTS Unavailable [address] + [place] [address] CHE[place] Unavailable [address] + [place] [address] CRISELDA FREEMAN Unavailable [address] + [address] [place] [address] RON ROBERTS Unavailable [address] + [place] [address] CHE[place] Unavailable [address] + [place] [address] CRISELDA FREEMAN Unavailable [address] + [address] [place] [address] RON ROBERTS Unavailable [address] + [place] [address] [place] Unavailable [address] + [place] [address] LYNDA FREEMANSON Unavailable [address] [place] [address] RON ROBERTS Unavailable [address] + [place] [address] CHE[place] Unavailable [address] + [place] [address] LYNDA FREEMANSON Unavailable [address] [place] [address] CHE[place] Unavailable [address] + [place] [address] LYNDA FREEMANSON Unavailable [address] [place] [address] CHECH Unavailable [address] + [place] [address] LYDIA CRISELDA Unavailable [address] + [address] [place] [address] CHE[place] Unavailable [address] + [place] [address] LYNDA FREEMANSON Unavailable [address] [place] [address] CHE[place] Unavailable [address] + [place] [address] LYDIA CRISELDA Unavailable [address] [place] [address] [place] Unavailable [address] + [place] [address] LYDIA, CRISELDA Unavailable [address] [place] [address] Care Team Providers Name Role Phone Shay Forrest Attending Unavailable Robi, Neno Chi Referring Unavailable Robi, Neno Chi Primary Care Unavailable Robi, Neno Chi Attending Unavailable Robi, Neno Chi Primary Care Unavailable Radha Biggs [employer]CTOR [employer]ACER-C Attending Unavailable Radha Biggs INTERCELL CONNECTOR PLACER-C Referring Unavailable Robi, Neno Chi Primary Care Unavailable Robi, Neno Chi Attending Unavailable Robi, Neno Chi Primary Care Unavailable Robi, Neno Chi Referring Unavailable Adriane Shay Attending Unavailable Koram, Latisha Fabiola Referring Unavailable Kalyan Radha [employer]CELL CONNECTOR PLACER-C Attending Unavailable Robi, Neno Chi Primary Care Unavailable Kalyan Radha [employer]CELL CONNECTOR [employer]ACER-C Referring Unavailable Robi, Neno Chi Attending Unavailable Robi, Neno Chi Primary Care Unavailable Yolisispakaley, Shay Attending Unavailable White, Alyssa Referring Unavailable Adriane Shay Attending Unavailable Moodispaw, Shay Referring Unavailable White, Alyssa Admitting Unavailable Robi, Neno Chi Primary Care Unavailable Lex, Hector S. Consulting Unavailable Koram, Latisha Fabiola Attending Unavailable Koram, Latisha Fabiola Consulting Unavailable Corina Addison [employer]CELL CONNECTOR PLACER-C Attending Unavailable Robi, Neno Chi Primary Care Unavailable White, Alyssa Admitting Unavailable Koram, Latisha Fabiola Attending Unavailable Robi, Neno Chi Primary Care Unavailable Lex, Hector S. Consulting Unavailable Koram, Latisha Fabiola Consulting Unavailable White, Alyssa Admitting Unavailable White, Alyssa Attending Unavailable Robi, Neno Chi Primary Care Unavailable White, Alyssa Consulting Unavailable Robi, Neno Chi Primary Care Unavailable White, Alyssa Admitting Unavailable Lex, Hector S. Consulting Unavailable Koram, Latisha Fabiola Attending Unavailable Adriane, Shay Attending Unavailable Yolisispaw, Shay Referring Unavailable Robi, Neno Chi Primary Care Unavailable Sharon Cohen Attending Unavailable Jayy Busch Attending Unavailable Robi, Neno Chi Referring Unavailable Robi, Neno Chi Attending Unavailable Robi, Neno Chi Referring Unavailable Robi, Neno Chi Primary Care Unavailable PROBLEMS PROBLEMS DATE TYPE CONDITION / CODE ATTENDING STATUS SOURCE 11/03/2018 Unknown G47.33 - Obstructive KalyanRadha Active [place] sleep apnea (adult) [employer] Community (pediatric) / Hospital G47.33(ICD-10) Repository 09/16/2018 Unknown R00.0 - Tachycardia, Moodispakaley, Shay Active [place] unspecified / Community R00.0(ICD-10) Hospital Repository 08/28/2018 Unknown R07.89 - Other chest Moodispaw, Shay Active [facility] pain / Community R07.89(ICD-10) Hospital Repository 08/28/2018 Unknown R00.1 - Bradycardia, Moodispaw, Shay Active [facility] unspecified / Community R00.1(ICD-10) Hospital Repository 08/28/2018 Unknown I11.0 - Hypertensive Moodispaw, Shay Active [place] heart disease with Community heart failure / Hospital I11.0(ICD-10) Repository 08/28/2018 Unknown I50.9 - Heart Moodispaw, Shay Active [place] failure, unspecified Community / I50.9(ICD-10) Hospital Repository 08/07/2018 Unknown R06.09 - Other forms Moodispaw, Shay Active [place] of dyspnea / Community R06.09(ICD-10) Hospital Repository 06/29/2018 Unknown I51.9 - Heart Moodispaw, Shay Active [place] disease, unspecified Community / I51.9(ICD-10) Hospital Repository 06/29/2018 Unknown I10 - Essential Moodispaw, Shay Active [place] (primary) Community hypertension / Hospital I10(ICD-10) Repository 06/29/2018 Unknown R06.02 - Shortness Moodispaw, Shay Active [place] of breath / Community R06.02(ICD-10) Hospital Repository 06/29/2018 Unknown E78.5 - Moodispaw, Shay Active [facility] Hyperlipidemia, Community unspecified / Hospital E78.5(ICD-10) Repository 03/10/2018 Unknown E78.4 - Other Robi, Neno Chi Active [place] hyperlipidemia / Community E78.4(ICD-10) Hospital Repository 03/10/2018 Unknown Z13.89 - Encounter Robi, Neno Chi Active [facility] for screening for Community other disorder / Hospital Z13.89(ICD-10) Repository 03/10/2018 Unknown E55.9 - Vitamin D Robi, Neno Chi Active [facility] deficiency, Community unspecified / Hospital E55.9(ICD-10) Repository PROCEDURES PROCEDURES No Procedure Records FoundRESULTS RESULTS THYROID STIM HORMONE Collected: 11/13/2018 Status: F Source: [place] (TSH) 2:11 PM [facility] REPOSITORY TYPE CODE TESTS RESULT OUT OF RANGE REFERENCE UNITS LAB L501.9520 0.358-3.74 uIU/mL Normal TSH 0.52 Performed By: #### L501.9520 #### [facility] [address] [place], [address] CBC W/DIFF, AUTOMATED Collected: 09/08/2018 Status: F Source: [place] 9:29 AM [facility] REPOSITORY TYPE CODE TESTS RESULT OUT OF RANGE REFERENCE UNITS LAB L100.1000 4.4-11.0 K/mm3 Normal WBC 6.4 LAB L100.1200 4.2-5.4 M/mm3 Normal RBC 4.64 LAB L100.1300 12.0-15.0 g/dl Normal HGB 14.0 LAB L100.1400 37-47 % Normal HCT 42.1 LAB L100.1500 81-99 fL Normal MCV 90.7 LAB L100.1600 27.0-32.0 pg Normal MCH 30.2 LAB L100.1700 32-36 g/gl Normal MCHC 33.3 LAB L100.1810 11.6-14.6 % Normal RDW CV 13.0 LAB L100.1820 35.1-43.9 fl Normal RDW SD 42.6 LAB L100.1900 150-450 K/mm3 Normal PLT 251 LAB L100.2000 6.2-12.0 fl Normal MPV 11.2 LAB L100.2100 47-70 % Normal NEUT% 50.4 LAB L100.2200 19-41 % Normal LY% 35.2 LAB L100.2300 0-10 % High MONO% 10.9 LAB L100.2400 0-5 % Normal EO% 2.5 LAB L100.2500 0-1 % Normal BASO% 0.5 LAB L100.2550 0.0-0.9 % Normal IM GRAN % 0.500 Result Comment: IG% - Immature Granulocytes (promyelocytes, myelocytes and metamyelocytes) > 1% indicates that a LEFT SHIFT is Present. LAB L100.2620 2.0-7.7 X10 3/uL Normal Absolute Neut 3.2 LAB L100.2720 0.83-4.51 X10 3/ul Normal Absolute Lymph 2.26 Performed By: #### L100.0100 #### [facility] [address] [place], [place], [address] VITAMIN D,25 HYDROXY Collected: 09/08/2018 Status: F Source: [place] 9:29 AM [facility] REPOSITORY TYPE CODE TESTS RESULT OUT OF REFERENCE UNITS RANGE LAB L506.1000 29.95-100.01 ng/mL Low Vitamin D 27.8 25-OH Result Comment: Vitamin D 25(OH) Status Range Deficiency <20 ng/mL (50nmol/L) Insuffciency 20 - 30 ng/mL (50 - 75 nmol/L) Sufficiency 30 - 100 ng/mL (75 - 250 nmol/L) Toxicity >100 ng/mL (>250 nmol/L) Performed By: #### L506.1000 #### [facility] [address] [place], [address] COMPREHENSIVE METABOLIC Collected: 09/08/2018 Status: F Source: [place] [facility] 9:29 AM [facility] REPOSITORY TYPE CODE TESTS RESULT OUT OF RANGE REFERENCE UNITS LAB L501.0100 74-106 mg/dL Normal GLU 88 Result Comment: Please note revised GLUCOSE reference range effective 2017. LAB L501.1000 7-18 mg/dL Normal BUN 14 LAB L501.1100 0.55-1.02 mg/dL Normal CREAT,SERUM 0.98 Result Comment: The validity of the calculated GFR AND GFRAA in patients over 70 years has not been determined. Clinical correlation is essential. LAB L501.1110 >60 mL/min Normal EST GFR 60 Result Comment: Non- GFR Calc LAB L501.1115 >60 mL/min Normal EST GFR - AA 72 Result Comment: GFR Calc LAB L501.1300 10-20 RATIO Normal BUN/CRE 14.3 LAB L501.1500 6.4-8.2 g/dL T Normal PROT 6.6 LAB L501.1800 3.2-5.0 g/dL Normal ALB 3.4 LAB L501.1950 2.2-4.2 g/dL Normal GLOB 3.2 LAB L501.2000 0.9-2.4 RATIO Normal A/G 1.1 LAB L501.2200 8.5-10.1 mg/dL CA Normal 8.6 LAB L501.4100 15-37 U/L Normal AST 21 LAB L501.4305 45-117 U/L Normal ALK P 88 LAB L501.4405 13-56 U/L Normal ALT 32 LAB L501.4600 0.20-1.00 mg/dL T Normal BILI 0.70 LAB L501.5300 136-145 mmol/L NA Normal 138 LAB L501.5600 3.5-5.1 mmol/L K Normal 4.2 LAB L501.5900 98-107 mmol/L CL Normal 106 LAB L501.6100 21.0-32.0 mmol/L Normal CO2 27.0 LAB L501.6200 5-15 Normal GAP 5 Performed By: #### L500.4050, L500.4100, L501.9520 #### [facility] [address] [facility] [place], [place], [address] LIPID PROFILE Collected: 09/08/2018 Status: F Source: [place] 9:29 AM [facility] REPOSITORY TYPE CODE TESTS RESULT OUT OF RANGE REFERENCE UNITS LAB L501.4900 200 mg/dL Normal CHOL 152 Result Comment: <200 mg/dL Desirable 200-240 mg/dL Borderline >240 mg/dL High Risk LAB L501.5000 mg/dL Normal TRIG 114 Result Comment: The drugs N-Acetylcysteine and Metamizole may falsely depress this assay. Serum Triglycerides Reference Interval Normal <150 mg/dL Borderline high 150 - 199 mg/dL High 200 - 499 mg/dL Very High > or = 500 mg/dL LAB L501.6400 mg/dL Normal HDL 61 Result Comment: The drugs N-Acetylcysteine and Metamizole may falsely depress this assay. Reference Range HDL <40 mg/dL Low HDL Cholesterol HDL >or= 60 mg/dL High HDL Cholesterol LAB L501.6500 0-130 mg/dL Normal LDL 68 LAB L501.6600 5-40 mg/dL Normal VLDL 23 Performed By: #### L500.4050, L500.4100, L501.9520 #### [facility] [address] [facility] [place], [place], [address] THYROID STIM HORMONE Collected: 09/08/2018 Status: F Source: [place] (TSH) 9:29 AM [facility] REPOSITORY TYPE CODE TESTS RESULT OUT OF RANGE REFERENCE UNITS LAB L501.9520 0.358-3.74 uIU/mL Low TSH 0.12 Performed By: #### L500.4050, L500.4100, L501.9520 #### [facility] [address] [facility] [place], [address] CONSULTATION Observed: 08/03/2018 Status: F Source: [place] 5:45 PM [facility] REPOSITORY [facility] Medical Records Department [address] [place] [address] Consultation 07/26/18 1259 MR#: [id number] Acct: [id number] Name: PRANEETH TOBIN Rep #: [id number] : 1945 72 From: Hector Burnett MD PCP: Neno Rosenbaum MD, Chi Status: DIS RACHEL Y Location: [place] [address] Problem List (1) Speech disturbance Status: Acute Qualifiers: Speech disturbance type: unspecified speech disturbance Qualified Code(s): R47.9 - Unspecified speech disturbances Reason for Consult Date of Consultation: 07/26/18 Reason for Consultation: speech disturbances History of Present Illness: The patient is a 72 year old CF with PMH HTN, HLD, H/O TIA, hypothyroidism admitted with speech disturbances. Per patient she was at work yesterday (07/25/18) when she had speech disturbances at work in the afternoon, had difficulty in getting her words out, then her speech was slow, the episode lasted for about half hour per patient, also had some frontal LEVY with the event, but denies any visual disturbances, focal motor weakness or sensory loss. Per patient she had multiple speech disturbance episode similar to this one in the past for about last 11/2 yr, had about 5 episodes this year per patient and all are stereotypical but would last for about 10 minutes before improving, with one of the episode had visual disturbances where she could not see out of the left side of the eye and she had been told these episodes could be TIA. Per patient in the past she had episodes where she would have focal one sided numbness with weakness which would improve, has had multiple such episodes in the past but they stopped when she changed her job few years ago per patient. She denies any witnessed seizures, denies loss of awareness with any of the episodes, denies tongue bite or urinary incontinence. Per patient she takes ASA daily at baseline, occasionally uses cane to ambulate, denies any frequent falls, does drive and does not need any assistance for her ADLs. MRI brain done during this admission reported nothing acute, MRA head/neck reported no occlusion or hemodynamically significant stenosis. [] Past Medical History Past Medical History (Chronic Problems): Chronic Problems (Last Updated 06/29/18 @ 10:07 by Sharon Cohen) Obesity (BMI 30-39.9) (Chronic) Diastolic dysfunction (Chronic) Hyperlipidemia (Chronic) Hypertension (Chronic) Asthma (Chronic) Hypothyroidism (Chronic) Generalized osteoarthritis (Chronic) Medical History: Medical History (Last Updated 06/29/18 @ 10:07 by Sharon Cohen) Diastolic dysfunction (Chronic) I51.9 Hyperlipidemia (Chronic) E78.5 Hypertension (Chronic) I10 Asthma (Chronic) J45.909 Hypothyroidism (Chronic) E03.9 Generalized osteoarthritis (Chronic) M15.9 History of TIA (transient ischemic attack) and stroke Z86.73 Osteoarthritis M19.90 Plantar fasciitis M72.2 Hypoglycemia E16.2 Mini stroke I63.9 possible OR Allergies sulfadimethoxine Allergy (Mild, Verified 07/25/18 17:04) unknown Home Medications: Ambulatory Orders Medication Instructions Recorded Surgical History: Surgical History (Last Reviewed 06/29/18 @ 10:04 by Sharon Cohen) History of hernia repair Z98.890, Z87.19 History of hysterectomy Z90.710 History of tonsillectomy and adenoidectomy Z98.890 History of tubal ligation Z98.51 H/O: hysterectomy Z98.890, Z90.710 1993 S/P hernia repair Z98.890, Z87.19 S/P tonsillectomy Z90.89 Surgical History: - - Hernia repair, total abdominal hysterectomy, tonsillectomy, bilateral tubal ligation. 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 Lives: With Family Smoking Status: Never smoker Tobacco Use: Non-smoker Alcohol: Rare Drugs: None - *Family History Maternal Family History: Family History (Last Reviewed 06/29/18 @ 10:04 by Sharon Cohen) Father Cancer CVA (cerebral vascular accident) Hypertension CAD (coronary artery disease) Brother Cancer Kidney disease Mother Hypertension CAD (coronary artery disease) Kidney disease Brother Cancer History Items: Diabetes, High Cholesterol, Heart Disease, Hypertension Paternal Family History: Family History (Last Reviewed 06/29/18 @ 10:04 by Sharon Cohen) Father Cancer CVA (cerebral vascular accident) Hypertension CAD (coronary artery disease) Brother Cancer Kidney disease Mother Hypertension CAD (coronary artery disease) Kidney disease Brother Cancer History Items: Diabetes, High Cholesterol, Heart Disease, Hypertension Review of Systems Constitutional: Reports: - - complete ROS negative except as documented in HPI Patient Problems: Active and Suspected Problems (Last Updated 06/29/18 @ 10:07 by Sharon Cohen) TIA (transient ischemic attack) (Acute) Chest pain (Acute) NAKIA (acute kidney injury) (Acute) Speech disturbance (Acute) - Physical Exam General: Alert HEENT: Normocephalic Neck: Supple Lungs: Clear to auscultation Cardiovascular: Normal S1, Normal S2 Abdomen: Bowel Sounds Present Extremities: No cyanosis Skin: No rashes Musculoskeletal: No Tenderness to Palpation of Joints or Extremities Neurological: Cranial nerves II-XII grossly intact, Deep Tendon Reflexes 2+/4 and Symmetrical, Neuro grossly intact, Motor Exam 5/5 strength throughout, Muscle tone normal, Sensory exam intact to light touch and pain, Coordination normal Psych/Mental Status: Normal Affect Vital Signs Temp Pulse Resp BP Pulse Ox 97.8 F 66 18 122/70 H 98 07/26/18 09:27 07/26/18 11:13 07/26/18 09:27 07/26/18 09:27 07/26/18 09:27 Oxygen Delivery Method Room Air Weight: 88.6 kg Body Mass Index (BMI) 36.8 Intake and Output for Last 24 Hours Intake Total 217 / 217 899 / 899 Output Total 300 / 300 Balance 217 / 217 599 / 599 Laboratory Tests Past 24 Hrs Magnesium Troponin I Triglycerides 122 Cholesterol 133 LDL Cholesterol 55 VLDL Cholesterol 24 HDL Cholesterol 54 TSH Free T4 Assessment/Plan All Active Problems (Last Updated 06/29/18 @ 10:07 by Sharon Cohen) TIA (transient ischemic attack) (Acute) Chest pain (Acute) NAKIA (acute kidney injury) (Acute) Speech disturbance (Acute) The patient is a 72 year old CF with PMH HTN, HLD, H/O TIA, hypothyroidism admitted with speech disturbances. Per patient she was at work yesterday (07/25/18) when she had speech disturbances at work in the afternoon, had difficulty in getting her words out, then her speech was slow, the episode lasted for about half hour per patient, also had some frontal LEVY with the event, but denies any visual disturbances, focal motor weakness or sensory loss. Per patient she had multiple speech disturbance episode similar to this one in the past for about last 11/2 yr, had about 5 episodes this year per patient and all are stereotypical but would last for about 10 minutes before improving, with one of the episode had visual disturbances where she could not see out of the left side of the eye and she had been told these episodes could be TIA. Per patient in the past she had episodes where she would have focal one sided numbness with weakness which would improve, has had multiple such episodes in the past but they stopped when she changed her job few years ago per patient. She denies any witnessed seizures, denies loss of awareness with any of the episodes, denies tongue bite or urinary incontinence. Per patient she takes ASA daily at baseline, occasionally uses cane to ambulate, denies any frequent falls, does drive and does not need any assistance for her ADLs. MRI brain done during this admission reported nothing acute, MRA head/neck reported no occlusion or hemodynamically significant stenosis Impression Speech disturbances, ? TIA Plan -On ASA, started on Plavix on admission, dual AP for 3 weeks then switch to single AP. Bleeding risks discussed with patient -ON Lipitor 80 mg PO q hs -MRI brain and MRA head/neck reviewed -Recommend EEG -TTE-05/10/18- EF 65% -LDL-55, Vxh5p-v -Labs reviewed- found to have NAKIA on admission -Stroke risk factors discussed and stroke education provided -Goal BP < 130/80 mmHg and Goal Hba1c <7% -Recommend 30 day event recorder -GI/DVT prophylaxis -PT/OT/ST -Fall precautions -Further medical management per primary team -Follow up with Neurology as outpatient in 2-3 weeks -Please call with questions if any -Thank you for allowing us to participate in patient's care and management I spent 60 minutes taking history, doing physical examination, reviewing medical records, coordinating care and counseling the patient. Code Visit Inpatient E AND M: [id number] Init Hosp L3 08/03/18 0590 <Electronically signed by Hector Burnett MD> Date Hector Burnett MD Cosigner Signature (if applicable): Date CC: Vanda Burnett MD; [place] Rosenbaum MD Signed ELECTROENCEPHALOGRAM Observed: 08/03/2018 Status: F Source: [place] 5:45 PM [facility] REPOSITORY [facility] Pulmonary Services/Neurology [address] [place] [address] MR#: [id number] Acct: [id number] Name: PRANEETH TOBIN Rep #: [id number] : 1945 72 From: Hector Burnett MD Referring Dr: Latisha Ryder MD Status: DIS RACHEL Ordering Dr: Date: [id number] Sex[facility] F C - Electroencephalogram Date of service 07/27/2018 History EEG is being done in this 72 yr F to rule out seizures EEG Description: This is an 18 channel EEG with 10-20 lead placement system. Bipolar montages, Referential and Circumferential montages were reviewed. Photic stimulation and Hyperventilation were performed. The posterior dominant rhythm is 9 HZ synchronous, symmetric, reacting to eye opening and closing. Photo stimulation elicited normal driving response but no abnormal photoparoxysmal response, Hyperventilation did not elicit any abnormal photoparoxysmal response. Sleep was identified. There is no abnormal background slowing noted. Muscle artefact and EKG artefact noted during the record. There was no epileptiform discharges or electrographic seizures noted during this recording. EEG Interpretation This is a normal awake and asleep EEG. There is no epileptiform discharges or electrographic seizures noted during the record. 08/03/18 1745 <Electronically signed by Hector Burnett MD> Date Hector Burnett MD CC: Vanda Burnett MD; Latisha Ryder MD; [place] Rosenbaum MD Date Dictated: 07/27/18 1500 Date Transcribed: 07/27/18 1500 Design Engineer Products: RSJj Signed DISCHARGE SUMMARY Observed: 07/27/2018 Status: F Source: [place] 4:10 PM [facility] REPOSITORY [facility] Medical Records Department [address] [place] [address] Discharge Summary 07/27/18 1151 MR#: [id number] Acct: [id number] Name: PRANEETH TOBIN Rep #: [id number] : 1945 72 From: Corina Addison INTERCELL CONNECTOR PLACER-C PCP: Robi MALLOY,Neno Chi Status: DIS RACHEL Y Location: [place] [id number] <Corina Addison - Last Filed: 07/27/18 12:01> Discharge Date and Diagnosis Date of Admission: 07/25/18 Date of Discharge: 07/27/18 - Primary Discharge Diagnosis Active and Suspected Problems (Last Updated 06/29/18 @ 10:07 by Sharon Cohen) 1. TIA 2. Non-cardiac chest pain 3. NAKIA - Secondary Discharge Diagnosis Chronic Problems (Last Updated 06/29/18 @ 10:07 by Sharon Cohen) Obesity (BMI 30-39.9) (Chronic) Diastolic dysfunction (Chronic) Hyperlipidemia (Chronic) Hypertension (Chronic) Asthma (Chronic) Hypothyroidism (Chronic) Generalized osteoarthritis (Chronic) Hospital Course and Treatment Imaging Results: Diagnostic Data Brain CT 07/25/18 17:17 IMPRESSION: Age consistent changes, no acute findings Electronically Signed: Eddy Engel MD at 17:51 EDT , Service support , Chest CTA 07/25/18 17:17 IMPRESSION: 1. No demonstrated pulmonary embolism or arterial dissection. 2. Poor expiratory effort with subsegmental atelectasis in the inferior left lung base. 3. Calcified lymph nodes seen in the left hilum. Electronically Signed: Eddy Frederick MD at 18:43 EDT , Service support , Brain MRI 07/26/18 07:45 IMPRESSION: 1. No MRI evidence of acute or subacute ischemic infarct. 2. Small solitary nonspecific gliosis in the left superior frontal lobe gyrus is presumably from remote injury. This was present previously and is unchanged. Electronically Signed: Lee Acosta MD at 9:09 EDT , Service support , Head MRA 07/26/18 07:45 IMPRESSION: Normal MRA of the head Electronically Signed: Lee Acosta MD at 9:10 EDT , Service support , Neck MRA 07/26/18 07:45 IMPRESSION: 1. Normal MRA of both cervical common carotid arteries, common carotid artery bifurcations, internal and external carotid arteries. 2. Normal MRA of the aortic arch and the origins of the great vessels. 3. Normal bilateral vertebral arteries. They are codominant. 4. Normal subclavian origins of both vertebral arteries. Electronically Signed: Lee Acosta MD at 9:12 EDT , Service support , Dr. Burnett- Neurology Operations: None Procedures: Electroencephalogram Summary of Care Provided: The patient is a 72 year old F admitted 07/25/2018 due to weakness, speech disturbance. She has a past medical history of hypertension, hyperlipidemia, chronic diastolic dysfunction, obesity, asthma, hypothyroidism, history of TIA. Patient also complained of intermittent chest pain on admission. Denies further chest pain. She had a recent echo 04/30/2018 which showed an EF of 65%, stage I diastolic dysfunction, trivial tricuspid valve insufficiency, RVSP 25 mmHg. She also underwent recent stress test 07/06/2018 which was negative for ischemia. EKG without evidence of ST-T changes. Troponin negative. CTA without evidence of pulmonary embolism or arterial dissection. Patient evaluated by neurology. MRI of brain negative, MRA of head and neck reported no occlusion or significant stenosis. Patient suspected to have TIA. Denies further neurologic symptoms or deficits. She will continue aspirin and Plavix for 3 weeks. Continue statin. Follow-up with neurology in 2-3 weeks. Patient underwent EEG, results pending. Will review prior to discharge. Patient will be discharged with 30 day event recorder. Patient also noted to have acute kidney injury which resolved with IV fluids. Follow-up with primary care physician in 1 week. General: Alert, Oriented x3, Cooperative, No apparent distress HEENT: Atraumatic, PERRLA, EOMI, Normocephalic Oral: Moist Mucosa Neck: Supple, No JVD, Negative Carotid Bruits Lungs: Clear to auscultation, Normal air movement Cardiovascular: Regular rate, Regular Rhythm, Normal S1, Normal S2, No murmurs Abdomen: Bowel Sounds Present, Soft, Non Tender Extremities: No clubbing, No cyanosis, No edema, Capillary Refill Less than 3 Seconds Skin: No rashes, No breakdown Musculoskeletal: No Tenderness to Palpation of Joints or Extremities Lymphatic: No Cervical, Supraclavicular, or Inguinal Adenopathy Neurological: Cranial nerves II-XII grossly intact, Neuro grossly intact Psych/Mental Status: Normal Affect, Appropriate Patient seen exam prior to discharge. Physical assessment as noted above. Patient stable for discharge home with the follow-up her conditions as noted above. This patient was seen by DEREK Baugh under the supervision of Dr. Ryder. Discharge Diet: Low fat/ Low Cholesterol Discharge Activity: Return to Normal Activity Call your doctor if you observe: Numbness or Tingling, Shortness of breath, Dizziness, Fainting spells, Chest pain Home Medications: Medications to take at Discharge levothyroxine 88 mcg tablet 88 mcg PO QDAY 06/27/18 aspirin 81 mg tablet,delayed release 81 mg PO QDAY 06/29/18 atorvastatin 40 mg tablet 40 mg PO DAILY 06/29/18 citalopram 20 mg tablet 20 mg PO QDAY 06/29/18 metoprolol succinate ER 25 mg tablet,extended release 24 hr 25 mg PO BID tab 06/29/18 Losartan Potassium 50 mg PO BID 07/25/18 Clopidogrel Bisulfate [Plavix] 75 mg PO DAILY #21 tab 07/27/18 Following Prescrptions Were Given to Patient: Clopidogrel Bisulfate [Plavix] 75 mg PO DAILY #21 tab Other Amb Orders: 30-Day Event Recorder [[facility]] Time Frame: 07/27/18, Location: None Selected Primary Care Physician: Neno Rosenbaum Chi, MD [Primary Care Provider] - Please follow up with your Primary Care Physician in: 1 Week Please Follow Up With: Hector Burnett MD When: 2-3 Weeks Disposition: Home Minutes spent on discharge:: 35 Patient Condition:: Stable Medical Necessity - Tobacco Use Smoking Status: Never smoker Tobacco Use: Non-smoker Meaningful Use Info Meaningful Use Diagnoses (Choose all that apply): None applicable <Latisha Ryder - Last Filed: 07/27/18 16:10> Discharge Date and Diagnosis - Secondary Discharge Diagnosis Chronic Problems (Last Updated 06/29/18 @ 10:07 by Sharon Cohen) Obesity (BMI 30-39.9) (Chronic) Diastolic dysfunction (Chronic) Hyperlipidemia (Chronic) Hypertension (Chronic) Asthma (Chronic) Hypothyroidism (Chronic) Generalized osteoarthritis (Chronic) Hospital Course and Treatment Summary of Care Provided: Patient seen by Corina REED under my supervision The patient is a 72 year old F with past medical history as listed above. She was admitted on 07/17/2018 with a complaint of weakness and expressive aphasia with intermittent chest pain. She was admitted and managed for TIA and chest pain. 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 Recent echo had been done on 04/30/2018 with findings as documented above and so an echo was deferred during this admission. Troponins and EKG were negative. CT was negative for any PE or aortic dissection. MRI of the brain was negative and MRA of the head and neck showed no significant findings. She had an EEG done. Neurology. Patient remained stable and was started on Plavix in addition to the aspirin that she had been on. Neurology was consulted. Per neurology, patient is to have Plavix and aspirin for 3 weeks and after was continued only on aspirin. She started on statin. A1c was within normal limits. She was discharged with a 30 day loop recorder and she is follow-up with neurology in 2-3 weeks. Of note, patient during admission also developed DKA which resolved with initiation of IV fluids. EEG done on 07/27/2018 was a normal awake EEG. She remained stable and was discharged on 07/27/2018 to follow-up with her primary care doctor and neurology. Patient seen and examined prior to discharge. She had no complaints and felt well. She denied any dizziness, headache, shortness of breath, fever chills, chest pain, abdominal pain, diarrhea or vomiting. 12 point review of systems otherwise negative. Labs and vitals reviewed. Home medications reviewed and reconciled. o/e: Vital Signs Height 5 ft 1 in Weight: 195 lb 5.273 oz General: Alert, Oriented x3, Cooperative, No apparent distress HEENT: Atraumatic, PERRLA, EOMI, Normocephalic Oral: Moist Mucosa Neck: Supple, No JVD, Negative Carotid Bruits Lungs: Clear to auscultation, Normal air movement Cardiovascular: Regular rate, Regular Rhythm, Normal S1, Normal S2, No murmurs Abdomen: Bowel Sounds Present, Soft, Non Tender Extremities: No clubbing, No cyanosis, No edema, Capillary Refill Less than 3 Seconds Skin: No rashes, No breakdown Musculoskeletal: No Tenderness to Palpation of Joints or Extremities Lymphatic: No Cervical, Supraclavicular, or Inguinal Adenopathy Neurological: Cranial nerves II-XII grossly intact, Neuro grossly intact Psych/Mental Status: Normal Affect, Appropriate Plan as stated above. Agree with rest of Corina REED's note. [] Code Visit Inpatient E AND M: [id number] [facility] 07/27/18 1201 <Electronically signed by Corina BOOTHC> Date Corina BOOTHC 07/27/18 1610<Electronically signed by Latisha Ryder MD> Cosigner Signature (if applicable): Date Latisha Ryder MD CC: [employer]-C Corina Addison; Latisha Ryder MD; Neno Rosenbaum MD Signed 12 LEAD ELECTROCARDIOGRAM Observed: 07/27/2018 Status: F Source: [place] 1:44 PM [facility] REPOSITORY [facility] Cardiovascular Services [address] [place] [address] 12 Lead EKG 07/25/180 MR#: [id number] Acct: [id number] Name: PRANEETH TOBIN Rep #: [id number] : 1945 72 From: Shay Forrest MD Attending Dr: Latisha Ryder MD Status: DIS RACHEL Ordering Dr: Alyssa Banda Date: 07/25/18 Location: [facility] Sex: F C Admitted: 07/25/18 Test Reason : ADM EKG Blood Pressure : / mmHG Vent. Rate : 046 BPM Atrial Rate : 046 BPM P-R Int : 150 ms QRS Dur : 072 ms QT Int : 496 ms P-R-T Axes : 055 009 031 degrees QTc Int : 434 ms Sinus bradycardia Otherwise normal ECG Confirmed by SHAY FORREST MD ([id number]), copy editor IRMA GRANT ([id number]) on 07/27/2018 1:44:11 PM Referred By: LUCIO Confirmed By:SHAY FORREST MD 07/27/18 1303 Date Shay Forrest MD CC: Alyssa Banda; Latisha Ryder MD; Neno Rosenbaum MD Signed 12 LEAD ELECTROCARDIOGRAM Observed: 07/27/2018 Status: F Source: [place] 1:43 PM [facility] REPOSITORY [facility] Cardiovascular Services [address] [place] [address] 12 Lead EKG 07/26/18 0510 MR#: [id number] Acct: [id number] Name: PRANEETH TOBIN Rep #: [id number] : 1945 72 From: Shay Forrest MD Attending Dr: Latisha Ryder MD Status: DIS RACHEL Ordering Dr: Alyssa Banda Date: 07/26/18 Location: [facility] Sex: F C Admitted: 07/25/18 Test Reason : AM EKG Blood Pressure : / mmHG Vent. Rate : 055 BPM Atrial Rate : 055 BPM P-R Int : 154 ms QRS Dur : 068 ms QT Int : 490 ms P-R-T Axes : 046 009 031 degrees QTc Int : 468 ms Sinus bradycardia Otherwise normal ECG Confirmed by SHAY FORREST MD ([id number]), copy editor IRMA GRANT ([id number]) on 07/27/2018 1:42:48 PM Referred By: LUCIO Confirmed By:SHAY FORREST MD 07/27/18 643 Date Shay Forrest MD CC: Alyssa Banda; Latisha Ryder MD; Neno Rosenbaum MD Signed 12 LEAD ELECTROCARDIOGRAM Observed: 07/27/2018 Status: F Source: [place] 1:37 PM [facility] Cardiovascular Services [address] [place] [address] 12 Lead EKG 07/25/18 1705 MR#: [id number] Acct: [id number] Name: PRANEETH TOBIN Rep #: [id number] : 1945 72 From: Shay Forrest MD Attending Dr: Latisha Ryder MD Status: ADM RACHEL Ordering Dr: Jayy Ku MD Date: 07/25/18 Location: [facility] Sex: F C Admitted: 07/25/18 Test Reason : CHEST PAIN Blood Pressure : / mmHG Vent. Rate : 050 BPM Atrial Rate : 050 BPM P-R Int : 128 ms QRS Dur : 078 ms QT Int : 486 ms P-R-T Axes : -05 001 034 degrees QTc Int : 443 ms Sinus bradycardia Nonspecific ST abnormality Abnormal ECG Confirmed by ADRIANE MALLOY, SHAY ([id number]), copy editor IRMA GRANT ([id number]) on 07/27/2018 1:37:23 PM Referred By: Confirmed By:SHAY FORREST MD 07/27/18 1337 Date Shay Forrest MD CC: Jayy Ku MD; Latisha Ryder MD; Neno Rsoenbaum MD Signed DISCHARGE INSTRUCTION Observed: 07/27/2018 Status: F Source: [place] 11:51 AM [facility] Medical Records Department [address] [place] [address] Instructions for Home/Discharge Instructions 07/27/18 1148 MR#: [id number] Acct: [id number] Name: PRANEETH TOBIN Rep #: [id number] : 1945 72 From: Corina REED PCP: Neno Rosenbaum MD, Chi Status: ADM RACHEL - Discharge Diagnoses Current Active Problems: Current Active and Chronic Problems (Last Updated 06/29/18 @ 10:07 by Sharon Cohen) Obesity (BMI 30-39.9) (Chronic) TIA (transient ischemic attack) (Acute) Chest pain (Acute) NAKIA (acute kidney injury) (Acute) Speech disturbance (Acute) You will use the following diet at home:: Cardiac Discharge Activity: Return to Normal Activity Call your doctor if you observe: Numbness or Tingling, Shortness of breath, Dizziness, Fainting spells, Chest pain Allergies/Adverse Reactions: Allergies sulfadimethoxine Allergy (Mild, Verified 07/25/18 17:04) unknown Medications to take at Discharge levothyroxine 88 mcg tablet 88 mcg PO QDAY 06/27/18 aspirin 81 mg tablet,delayed release 81 mg PO QDAY 06/29/18 atorvastatin 40 mg tablet 40 mg PO DAILY 06/29/18 citalopram 20 mg tablet 20 mg PO QDAY 06/29/18 metoprolol succinate ER 25 mg tablet,extended release 24 hr 25 mg PO BID tab 06/29/18 Losartan Potassium 50 mg PO BID 07/25/18 Clopidogrel Bisulfate [Plavix] 75 mg PO DAILY #21 tab 07/27/18 The following prescriptions were given: Clopidogrel Bisulfate [Plavix] 75 mg PO DAILY #21 tab Primary Care Physician: Neno Rosenbaum Chi, MD [Primary Care Provider] - Please follow up with your Primary Care Physician in: 1 Week Test Results: Test results from this visit will be discussed in further detail at your follow-up appointment, if applicable. Please Follow Up With: Hector Burnett MD When: 2-3 Weeks Proposed Discharge Date: 07/27/18 07/27/18 1151 <Electronically signed by Corina REED> Date Corina REED CC: Vanda Burnett MD; Neno Rosenbaum MD CBC W/DIFF, AUTOMATED Collected: 07/27/2018 Status: F Source: [place] 6:24 AM [facility] REPOSITORY TYPE CODE TESTS RESULT OUT OF RANGE REFERENCE UNITS LAB L100.1000 4.4-11.0 K/mm3 Normal WBC 5.4 LAB L100.1200 4.2-5.4 M/mm3 Low RBC 4.09 LAB L100.1300 12.0-15.0 g/dl Normal HGB 12.3 LAB L100.1400 37-47 % Normal HCT 37.2 LAB L100.1500 81-99 fL Normal MCV 91.0 LAB L100.1600 27.0-32.0 pg Normal MCH 30.1 LAB L100.1700 32-36 g/gl Normal MCHC 33.1 LAB L100.1810 11.6-14.6 % Normal RDW CV 13.4 LAB L100.1820 35.1-43.9 fl High RDW SD 44.0 LAB L100.1900 150-450 K/mm3 Normal PLT 212 LAB L100.2000 6.2-12.0 fl Normal MPV 10.6 LAB L100.2100 47-70 % Low NEUT% 44.6 LAB L100.2200 19-41 % High LY% 42.4 LAB L100.2300 0-10 % Normal MONO% 9.0 LAB L100.2400 0-5 % Normal EO% 3.2 LAB L100.2500 0-1 % Normal BASO% 0.4 LAB L100.2550 0.0-0.9 % Normal IM GRAN % 0.400 Result Comment: IG% - Immature Granulocytes (promyelocytes, myelocytes and metamyelocytes) > 1% indicates that a LEFT SHIFT is Present. LAB L100.2620 2.0-7.7 X10 3/uL Normal Absolute Neut 2.4 LAB L100.2720 0.83-4.51 X10 3/ul Normal Absolute Lymph 2.27 Performed By: #### L100.0100 #### [facility] [address] [place], [place], [id number] BASIC METABOLIC Collected: 07/27/2018 Status: F Source: [place] PROFILE (BMP) 6:24 AM [facility] REPOSITORY TYPE CODE TESTS RESULT OUT OF RANGE REFERENCE UNITS LAB L501.0100 74-106 mg/dL Normal GLU 79 Result Comment: Please note revised GLUCOSE reference range effective 2017. LAB L501.1000 7-18 mg/dL Normal BUN 11 LAB L501.1100 0.55-1.02 mg/dL Normal CREAT,SERUM 0.77 Result Comment: The validity of the calculated GFR AND GFRAA in patients over 70 years has not been determined. Clinical correlation is essential. LAB L501.1110 >60 mL/min Normal EST GFR 79 Result Comment: Non- GFR Calc LAB L501.1115 >60 mL/min Normal EST GFR - AA 96 Result Comment: GFR Calc LAB L501.1255 ml/min Normal Estimated CRCL 39.50 LAB L501.1300 10-20 RATIO Normal BUN/CRE 14.3 LAB L501.2200 8.5-10 mg/dL Low .1 CA 8.3 LAB L501.5300 136-14 mmol/L Normal 5 NA 145 LAB L501.5600 3.5-5. mmol/L Normal 1 K 3.9 LAB L501.5900 98-107 mmol/L High CL 113 LAB L501.6100 21.0-3 mmol/L Normal 2.0 CO2 24.0 LAB L501.6200 5-15 Normal GAP 8 Performed By: #### L500.2500 #### [facility] [address] [place], [address] LIPID PROFILE Collected: 07/26/2018 Status: F Source: [place] 5:18 AM [facility] REPOSITORY TYPE CODE TESTS RESULT OUT OF RANGE REFERENCE UNITS LAB L501.4900 200 mg/dL Normal CHOL 133 Result Comment: <200 mg/dL Desirable 200-240 mg/dL Borderline >240 mg/dL High Risk LAB L501.5000 mg/dL Normal TRIG 122 Result Comment: The drugs N-Acetylcysteine and Metamizole may falsely depress this assay. Serum Triglycerides Reference Interval Normal <150 mg/dL Borderline high 150 - 199 mg/dL High 200 - 499 mg/dL Very High > or = 500 mg/dL LAB L501.6400 mg/dL Normal HDL 54 Result Comment: The drugs N-Acetylcysteine and Metamizole may falsely depress this assay. Reference Range HDL <40 mg/dL Low HDL Cholesterol HDL >or= 60 mg/dL High HDL Cholesterol LAB L501.6500 0-130 mg/dL Normal LDL 55 LAB L501.6600 5-40 mg/dL Normal VLDL 24 Performed By: #### L500.4100 #### [facility] [address] [place], [address] HEMOGLOBIN A1C Collected: 07/26/2018 Status: F Source: [place] 5:18 AM [facility] REPOSITORY TYPE CODE TESTS RESULT OUT OF RANGE REFERENCE UNITS LAB L501.9985 4.2-6.3 % Normal HGB A1C 5.5 Performed By: #### L501.9985 #### [facility] [address] [place], [address] TROPONIN-I Collected: 07/26/2018 Status: F Source: [place] 12:20 AM [facility] REPOSITORY Order Comment: 'TROP' Serial specimen #1, #2 or #3: 3 TYPE CODE TESTS RESULT OUT OF RANGE REFERENCE UNITS LAB L501.4010 <0.045 ng/mL Normal < 0.015 TROPONIN-I Result Comment: TROPONIN-I EXPECTED VALUES <0.045 Negative 0.045 - 0.590 Consistent with Cardiac Damage > OR = 0.600 Critical Value Not every elevated troponin is indicative of OR. These values should be used with clinical judgement in examining the patient's clinical picture for diagnosis. To establish a diagnosis of OR versus myocardial injury, there must be a demonstrated rise and/or fall in the troponin values, in addition to ischemic symptoms, EKG changes, new regional wall motion abnormality, and/or angiographical evidence. PLEASE NOTE: REFERENCE RANGES EDITED 18 Performed By: #### L501.4010 #### [facility] [address] [place], [address] EMERGENCY DEPARTMENT Observed: 07/25/2018 Status: F Source: [place] SUMMARY 11:25 PM [facility] REPOSITORY [facility] Medical Records Department [address] [place] [address] Emergency Department Summary 07/25/18 1719 MR#: [id number] Acct: [id number] Name: PRANEETH TOBIN Rep #: [id number] : 1945 72 From: Jayy Ku MD PCP: Neno Rosenbaum MD, Chi Status: ADM RACHEL - ER Visit Summary Date of Service: 07/25/18 Chief Complaint: Possible TIA History of Present Illness: The patient is a 72 F with a history of TIA. She presents for symptoms that started suddenly at 3:45 PM today. She had a headache, slurred speech, abnormal writing, and intermittent chest pain. She had similar symptoms in the past with TIAs. Currently, her symptoms have resolved. She reports a history of hypothyroidism, hypertension, hyperlipidemia, CHF, and asthma. She does not take blood thinners. Physical Examination: Blood pressure 148/97. Otherwise vital signs unremarkable. Afebrile. Heart rate 52. Patient in no acute distress. Alert and oriented. GCS 15. NIH stroke scale is 0. Head and neck atraumatic. Heart regular. Lungs clear. Abdomen soft. Skin appears normal in color without rash. Test Results: EKG shows sinus rhythm at a rate of 50. No sign of acute ischemia or infarction pattern. Laboratory studies, CT brain, CTA chest pending. Emergency Department Course and Treatment: Patient placed on a monitor. IV access obtained. Will reassess. Workup including head CT, CTA chest, labs, troponin all unremarkable. BUN 20 and creatinine 1.31. No sign of dissection, PE, or acute process. On reevaluation, patient had no further symptoms or recurrent symptoms. Will be admitted for further care. Treatment Plan: As above Disposition: Admission to PCU Impression: 1. TIA 2. Chest pain 3. Acute kidney injury This note was generated with [employer] dictation software. It may contain incorrect words, spelling, and punctuation that were not noted in review of the chart prior to signing ED Disposition - Plan for ED Patient: Chief Complaint: Weakness Referrals: Neno Rosenbaum Chi, MD [Primary Care Provider] - What to do if you have Problems For any increased pain, shortness of breath, bleeding, nausea or vomiting, chest pain, or any unexpected problems, contact your Primary Care Provider. Call [facility] ([phone]) or report to the closest Emergency Room. Call 911 if necessary. 07/25/18 3376 <Electronically signed by Jayy Ku MD> Date Jayy Ku MD Cosigner Signature (If Indicated): Date CC: Neno Rosenbaum MD HISTORY AND PHYSICAL Observed: 07/25/2018 Status: F Source: [place] EXAM 10:12 PM [facility] REPOSITORY [facility] Medical Records Department [address] [place] [address] History and Physical 07/25/18 1911 MR#: [id number] Acct: [id number] Name: PRANEETH TOBIN Rep #: [id number] : 1945 72 From: Alyssa Banda PCP: Neno Rosenbaum MD, Chi Status: ADM RACHEL Y Location: [place] [address] ADDENDUM by Alyssa Banda on 07/25/18 at 2212 Code Visit ECHO recently as noted prior, will not repeat. 07/25/18 2212 <Electronically signed by Alyssa Banda > Date Alyssa Banda cc: Alyssa Banda; Neno Rosenbaum MD * Signed Problem List (1) TIA (transient ischemic attack) Status: Acute (2) Chest pain Status: Acute Qualifiers: Chest pain type: unspecified Qualified Code(s): R07.9 - Chest pain, unspecified (3) NAKIA (acute kidney injury) Status: Acute (4) Obesity (BMI 30-39.9) Status: Chronic (5) Diastolic dysfunction Status: Chronic (6) Hyperlipidemia Status: Chronic Qualifiers: (7) Hypertension Status: Chronic Qualifiers: Hypertension type: essential hypertension Qualified Code(s): I10 - Essential (primary) hypertension (8) Asthma Status: Chronic Qualifiers: Asthma severity: unspecified severity Asthma persistence: unspecified Asthma complication type: unspecified Qualified Code(s): J45.909 - Unspecified asthma, uncomplicated (9) Hypothyroidism Status: Chronic Qualifiers: Hypothyroidism type: unspecified Qualified Code(s): E03.9 - Hypothyroidism, unspecified (10) Generalized osteoarthritis Status: Chronic History of Present Illness Date of Admission: 07/25/18 Chief Complaint: Weakness The patient is a 72 y/o F w/ PMHx: Obesity, HTN, HLD, Diastolic Dysfunction, Asthma, Hypothyroidism, Obesity, Hx TIA who presents to the [facility] ED on 07/25/18 with history of onset at 15:45 sudden headache generalized, RUE weakness w/ difficulty writing (R hand dominant), expressive aphasia which resolved at 5 pm upon ED presentation in addition to onset sharp stabbing sensation 10/10 rated, intermittent chest pain in the retrosternal region without radiation, lasting seconds with associated dyspnea which she admits she has had in the past and had negative stress testing prior. She notes ongoing history of dyspnea and these intermittent stabbing chest pains w/ recent 04/30/18 ECHO w/ EF 65%, stage I diastolic dysfunction, trivial TV insufficiency, RVSP 25 mmHg with no appreciable changes since 2004 and recent cardiac stress testing on 07/06/18 which was unremarkable for ischemia. In the ED patient NIH score 0 and no recurrent chest discomfort. In the ED work-up included afebrile, heart rate 53, BP 134/71, respiratory rate 12, 100% on room air, unremarkable CBC, unremarkable coags, BMP with BUN/creatinine 20/1.31 (baseline creatinine 0.8), troponin less than 0.015, CT head with no acute findings, CTPA with no acute evidence of pulmonary embolism or arterial dissection, poor expiratory effort with subsegmental atelectasis in the inferior lung base, calcified lymph nodes seen in the left hilum. Past Medical History Past Medical History (Chronic Problems): Chronic Problems (Last Updated 06/29/18 @ 10:07 by Sharon Cohen) Obesity (BMI 30-39.9) (Chronic) Diastolic dysfunction (Chronic) Hyperlipidemia (Chronic) Hypertension (Chronic) Asthma (Chronic) Hypothyroidism (Chronic) Generalized osteoarthritis (Chronic) Medical History: Medical History (Last Updated 06/29/18 @ 10:07 by Sharon Cohen) Diastolic dysfunction (Chronic) I51.9 Hyperlipidemia (Chronic) E78.5 Hypertension (Chronic) I10 Asthma (Chronic) J45.909 Hypothyroidism (Chronic) E03.9 Generalized osteoarthritis (Chronic) M15.9 History of TIA (transient ischemic attack) and stroke Z86.73 Osteoarthritis M19.90 Plantar fasciitis M72.2 Hypoglycemia E16.2 Mini stroke I63.9 possible OR Allergies sulfadimethoxine Allergy (Mild, Verified 07/25/18 17:04) unknown Home Medications: Ambulatory Orders Medication Instructions Recorded Surgical History: Surgical History (Last Reviewed 06/29/18 @ 10:04 by Sharon Cohen) History of hernia repair Z98.890, Z87.19 History of hysterectomy Z90.710 History of tonsillectomy and adenoidectomy Z98.890 History of tubal ligation Z98.51 H/O: hysterectomy Z98.890, Z90.710 1993 S/P hernia repair Z98.890, Z87.19 S/P tonsillectomy Z90.89 Surgical History: - - Hernia repair, total abdominal hysterectomy, tonsillectomy, bilateral tubal ligation. 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 Lives: With Family Smoking Status: Never smoker Tobacco Use: Non-smoker Alcohol: Rare Drugs: None - *Family History Maternal Family History: Family History (Last Reviewed 06/29/18 @ 10:04 by Sharon Cohen) Father Cancer CVA (cerebral vascular accident) Hypertension CAD (coronary artery disease) Brother Cancer Kidney disease Mother Hypertension CAD (coronary artery disease) Kidney disease Brother Cancer History Items: Diabetes, High Cholesterol, Heart Disease, Hypertension Paternal Family History: Family History (Last Reviewed 06/29/18 @ 10:04 by Sharon Cohen) Father Cancer CVA (cerebral vascular accident) Hypertension CAD (coronary artery disease) Brother Cancer Kidney disease Mother Hypertension CAD (coronary artery disease) Kidney disease Brother Cancer History Items: Diabetes, High Cholesterol, Heart Disease, Hypertension Review of Systems Constitutional: Reports: Fatigue. Denies: Chills, Fever, Weight Change HEENT: Reports: Head Aches. Denies: Sinus Congestion, Sinus Drainage Cardiovascular: Reports: Chest Pain. Denies: Chest Pressure, Chest Tightness, Heaviness, Light Headedness, Orthopnea, Palpitations, Syncope Respiratory: Reports: Shortness of Breath, Shortness of breath at rest, Shortness of breath upon exertion. Denies: Cough, Sputum production Gastrointestinal: Denies: Abdominal Pain, Nausea, Vomiting Genitourinary: Denies: Dysuria Musculoskeletal: Reports: Back Pain. Denies: Joint Pain, Joint Tenderness Skin: Denies: Rash, Wounds Neurological: Reports: Change in Speech, Slurred speech, Confusion, Focal weakness. Denies: Numbness, Tingling Psychiatric: Reports: Anxiety, Depression. Denies: Homicidal Ideations, Suicidal Ideations Hematologic/ Lymphatic: Denies: Easy Bruising, Easy Bleeding VTE Information - Inpt Only VTE Present on Admission: No VTE Mechan Device Prophylaxis: SCD's VTE Pharm Prophylaxis ordered?: Yes Patient Problems: Active and Suspected Problems (Last Updated 06/29/18 @ 10:07 by Sharon Cohen) TIA (transient ischemic attack) (Acute) Chest pain (Acute) NAKIA (acute kidney injury) (Acute) Subjective: Seated upright in the ED bed, no acute distress currently, no recurrent chest pain or recurrent neurological symptoms. Objective: Physical Examination: General: awake, alert, oriented x 3 and cooperative, seated upright in the ED bed in no apparent distress. Skin: normal color, turgor, no icterus, cyanosis. HEENT: AT/NC, EOMI, PERRLA, moderately dry MM, no carotid bruits or JVD noted. Lungs: CTA bilaterally, moderate effort, mild decrease BL bases, no rales, ronchi or wheezing. Heart: Mildly bradycardic with regular rhythm; no gallop, rub audible. Abdomen: soft, obese, NTTP, ND, normal BS, no HSM. Extremities: no cyanosis, clubbing, or edema. Neurological: patient awake, alert, oriented x 3; cognitive function intact; pupils equally reactive to light and accomodation; cranial nerves II-XII grossly normal, moving all 4 extremities, no focal deficits, strength preserved. Psychiatric: affect appears normal, no acute evidence of depressive or anxiety feelings. - Physical Exam Vital Signs Temp Pulse Resp BP Pulse Ox 97.8 F 53 L 12 134/71 H 100 07/25/18 16:57 07/25/18 19:05 07/25/18 19:05 07/25/18 19:05 07/25/18 19:05 Oxygen Delivery Method Room Air Weight: 200 lb 6.403 oz Body Mass Index (BMI) 37.8 Finger Stick Blood Glucose 83 Laboratory Tests Past 24 Hrs POC Glucose POC Glucose 83 Assessment/Plan All Active Problems (Last Updated 06/29/18 @ 10:07 by Sharon Cohen) TIA (transient ischemic attack) (Acute) Chest pain (Acute) NAKIA (acute kidney injury) (Acute) The patient is a 72 y/o F w/ PMHx: Obesity, HTN, HLD, Diastolic Dysfunction, Asthma, Hypothyroidism, Obesity, Hx TIA who presents to the [facility] ED on 07/25/18 with history of onset at 15:45 sudden headache generalized, RUE weakness w/ difficulty writing (R hand dominant), expressive aphasia which resolved at 5 pm upon ED presentation in addition to onset sharp stabbing sensation 10/10 rated, intermittent chest pain in the retrosternal region without radiation, lasting seconds with associated dyspnea which she admits she has had in the past and had negative stress testing prior. (1) Expressive Aphasia, RUE Weakness concerning for TIA/CVA w/ Hx Prior TIAs: In the ED work-up included afebrile, heart rate 53, BP 134/71, respiratory rate 12, 100% on room air, unremarkable CBC, unremarkable coags, BMP with BUN/creatinine 20/1.31 (baseline creatinine 0.8), troponin less than 0.015, CT head with no acute findings, CTPA with no acute evidence of pulmonary embolism or arterial dissection, poor expiratory effort with subsegmental atelectasis in the inferior lung base, calcified lymph nodes seen in the left hilum. Will admit to PCU, will obtain MRI Brain, MRA Head and Neck, ECHO, PT/OT/Speech/Nutrition evaluation per protocol. Will consult Neurology for evaluation. Given resolution will continue HTN regimen with hold parameters, maintain on asa with addition of plavix, increase to high dose statin w/ AM FLP, fall precautions. (2) Atypical Chest Pain: EKG in ED with sinus rhythm with no acute evidence of ischemia, CTPA without acute findings. Will place on a monitored bed to assure no acute myocardial infarction with serial cardiac enzymes and EKGs. Recent 07/06/18 negative stress testing. If recurrent pending work-up #1 may need to consider Cardiology assessment. Mag pending. FLP in AM. ASA, NG, morphine. (3) Acute kidney injury: Secondary to suspected poor intake, mild dehydration. Admission BUN/Cr 20/1.31, prior baseline creatinine noted to be 0.8. Will hydrate, hold nephrotoxic medications and repeat chemistry in AM. If no improvement would plan FeNa and renal US assessment. (4) Hypothyroidism: Continue home synthroid regimen, TSH and FT4 pending. (5) Obesity: Weight loss and lifestyle changes encouraged. (6) Chronic Asthma: Possibly the etiology for her ongoing dyspnea complaints as unremarkable ECHO and stress testing outpatient work-up with asthma history. Continue ATC duonebs, PRN albuterol, HOB, IS parameters. (7) Hypertension: Continue home regimen including losartan, metoprolol with hold parameters, PRN hydralazine. (8) Hyperlipidemia: Continue home statin regimen. AM FLP. (9) Anxiety and Depression: Continue home regimen citalopram. (10) DVT Prophylaxis: SCDs, heparin. Code Visit OBSV E AND M: 02014 Initial observation care L3 07/25/182017 <Electronically signed by Alyssa Banda > Date Alyssa Banda Cosigner Signature: Date (if applicable) CC: Alyssa Banda; Neno Rosenbaum MD Signed MAGNESIUM Collected: 07/25/2018 Status: F Source: AYLIN 9:04 PM [facility] REPOSITORY TYPE CODE TESTS RESULT OUT OF RANGE REFERENCE UNITS LAB L501.5200 1.6-2.6 mg/dL Normal MG 1.8 Performed By: #### L501.5200, L501.9520, L506.0400 #### [facility] [address] [place], [place], [address] THYROID STIM HORMONE Collected: 07/25/2018 Status: F Source: AYLIN (TSH) 9:04 PM [facility] REPOSITORY TYPE CODE TESTS RESULT OUT OF RANGE REFERENCE UNITS LAB L501.9520 0.358-3.74 uIU/mL Low TSH 0.30 Performed By: #### L501.5200, L501.9520, L506.0400 #### [facility] [address] [place], [address] T4 FREE DIRECT Collected: 07/25/2018 Status: F Source: A[place]LIN 9:04 PM [facility] REPOSITORY TYPE CODE TESTS RESULT OUT OF RANGE REFERENCE UNITS LAB L506.0400 0.76-1.46 ng/dL Normal T4 FREE 1.40 DIRECT Performed By: #### L501.5200, L501.9520, L506.0400 #### [facility] [address] [place], [address] BRAIN WITHOUT Observed: 07/25/2018 Status: F Source: [place] CONTRAST 8:43 PM [facility] REPOSITORY [facility] Imaging Services [address] [place] [address] Brain without Contrast MR#: [id number] Acct: [id number] Name: PRANEETH TOBIN Rep #: [id number] : 1945 F 72 From: Lee Acosta MD PCP: Neno Rosenbaum MD, Chi Status: DIS RACHEL Study: Brain without Contrast Date of Exam: 07/26/18 Exam# [id number] Ordering Dr: Alyssa Banda ADDENDUM by Lee Acosta M.D. on 07/27/18 at 1443 MRI/Brain without Contrast 07/27/18 1450 Date cc: Alyssa Banda; Neno Rosenbaum MD * Signed ADDENDUM by Lee Acosta M.D. on 07/27/18 at 1443 ADDENDUM COMPARED TO PREVIOUS MRI OF THE BRAIN WITH AND WITHOUT CONTRAST 03/15/2017. The nonspecific gliosis in the left superior frontal lobe gyrus is not solitary. They are present in both frontal lobes, the right posterior periatrial white matter, the left parietal lobe and left temporal lobe (series 6, images 12, 14, 15, 16 and 19). The slice levels are not identical but these were present previously even though they are subtle. In my opinion, the are unchanged. CONCLUSION: 1. Minimal chronic white matter ischemic changes in both cerebral hemispheres rather than solitary nonspecific gliosis in the left superior frontal lobe gyrus. 2. No significant interval changes when compared to 03/15/2017. Electronically Signed: Lee Acosta MD at 14:43 EDT , Service support , 07/27/18 1443 Date cc: Alyssa Banda; Neno Rosenbaum MD * Signed STUDY: MRI BRAIN WITHOUT CONTRAST REASON FOR EXAM: Female, 72 years old. CVA. Speech difficulty. TECHNIQUE: Standardized multiplanar fat and water weighted pulse sequences were obtained. COMPARISON: 03/15/2017. CT head without contrast 07/25/2018. FINDINGS: No restricted diffusion to suspect acute or subacute ischemic infarct. No remote cortical-based ischemic infarct. Nonspecific solitary T2 FLAIR hyperintensity focus in the left superior frontal lobe gyrus (series 6, image 19; series 9, image 18). No mass effects and no midline shift. Normal size of the ventricles and extra-axial spaces for the patient's age. Normal white matter tracts of the supratentorial brain. Normal bilateral basal ganglia. Normal thalami. There is no extra-axial fluid accumulation. Normal flow voids within the major intracranial circulation suggesting patency by spin echo criteria. Normal sella turcica, pituitary gland, infundibular stalk, optic chiasm and hypothalamus. Normal tectal plate and pineal gland. Normal midbrain, yennifer and medulla. Normal cerebellum. Normal basal cisterns. Normal bilateral temporal bones. Normal bilateral internal auditory canals. No demonstrated orbital abnormality, within the constraints of a routine brain study. Normal visualized paranasal sinuses. Normal calvarium and skull base. Normal visualized soft tissue structures. Prominent anterior and posterior marginal spurs at C3-C4 disc level with Modic type II degenerative vertebral marrow fatty changes underneath the vertebral endplates. MRI/Brain without Contrast IMPRESSION: 1. No MRI evidence of acute or subacute ischemic infarct. 2. Small solitary nonspecific gliosis in the left superior frontal lobe gyrus is presumably from remote injury. This was present previously and is unchanged. Electronically Signed: Lee Acosta MD at 9:09 EDT , Service support , CC: Alyssa Banda; Neno Rosenbaum MD Design Engineer Products: Signed MRA HEAD ONLY WITHOUT Observed: 07/25/2018 Status: F Source: [place] CONTRAST 8:43 PM [facility] REPOSITORY [facility] Imaging Services [address] [place] [id number] MRA Head ONLY without Contrast MR#: [id number] Acct: [id number] Name: PRANEETH TOBIN Ruby Rep #: [id number] : 1945 F 72 From: Lee Acosta MD PCP: Neno Rosenbaum MD, Chi Status: DIS RACHEL Study: MRA Head ONLY without Contrast Date of Exam: 07/26/18 Exam# [id number] Ordering Dr: Alyssa Banda ADDENDUM by Lee Acosta M.D. on 07/27/18 at 1445 MRI/MRA Head ONLY without Contrast 07/27/18 1452 Date cc: Alyssa Banda; Neno Rosenbaum MD * Signed ADDENDUM by Lee Acosta M.D. on 07/27/18 at 1445 ADDENDUM COMPARED TO MRA HEAD 03/15/2017. FINDINGS: No vaso-occlusive disease of the anterior and posterior intracranial circulation. No visible right and left posterior communicating arteries. They may be markedly hypoplastic and below the resolution of the MRA head. No suspicious intracranial aneurysm, saccular or fusiform type. CONCLUSION: Normal MRA of the head and unchanged since 03/15/2017. Electronically Signed: Lee Acosta MD at 14:45 EDT , Service support , 07/27/18 1445 Date cc: Alyssa Banda; Neno Rosenbaum MD * Signed STUDY: MRA OF THE HEAD WITHOUT CONTRAST REASON FOR EXAM: Female, 72 years old. CVA. Speech difficulty. TECHNIQUE: 3-D qjrd-ej-qejxrg (TOF) imaging was performed with MIPs. The study was performed unenhanced. COMPARISON: None. FINDINGS: Normal bilateral petrous carotid arteries. Normal right cavernous carotid artery with a normal supraclinoid bifurcation. Normal left cavernous carotid artery with a normal supraclinoid bifurcation. Normal right A1 segment of the anterior cerebral artery. Normal left A1 segment of the anterior cerebral artery. Normal intact anterior communicating artery (ACOM). Normal bilateral A2 segments of the anterior cerebral arteries. Normal right M1 and M2 segments of the middle cerebral arteries, with a normal M1 bifurcation. Normal left M1 and M2 segments of the middle cerebral arteries, with a normal M1 bifurcation. No visible right posterior communicating artery (PCOM). No visible left posterior communicating artery (PCOM). Normal bilateral vertebral arteries. Normal basilar artery with a normal basilar bifurcation. The visualized bilateral superior cerebellar (SCA) arteries are normal. Normal bilateral P1, P2 and visualized P3 segments of the posterior cerebral arteries. There is no demonstrated aneurysm of the [place]. There is no major vessel occlusion or hemodynamically significant stenosis. There is no demonstrated abnormality of the visualized brain. MRI/MRA Head ONLY without Contrast IMPRESSION: Normal MRA of the head Electronically Signed: Lee Acosta MD at 9:10 EDT , Service support , CC: Alyssa Banda; Neno Rosenbaum MD Design Engineer Products: Signed MRA NECK WITHOUT Observed: 07/25/2018 Status: F Source: [place] CONTRAST 8:43 PM [facility] REPOSITORY [facility] Imaging Services [address] [place] [address] MRA Neck without Contrast MR#: [id number] Acct: [id number] Name: PRANEETH TOBIN Rep #: [id number] : 1945 F 72 From: Lee cAosta MD PCP: Robi MALLOY,Neno Hernández Status: DIS RACHEL Study: MRA Neck without Contrast Date of Exam: 07/26/18 Exam# [id number] Ordering Dr: Alyssa Banda ADDENDUM by Lee Acosta M.D. on 07/27/18 at 1451 MRI/MRA Neck without Contrast 07/27/18 1458 Date cc: Alyssa Banda; Neno Rosenbaum MD * Signed ADDENDUM by Lee Acosta M.D. on 07/27/18 at 1451 ADDENDUM COMPARED TO MRA NECK 03/15/2017. CONCLUSION: 1. Normal MRA of both cervical common carotid arteries, common carotid artery bifurcations, internal and external carotid arteries. 2. Normal MRA of the aortic arch and the origins of the great vessels. 3. Normal bilateral vertebral arteries. They are codominant. 4. Normal subclavian origins of both vertebral arteries. 5. No interval change since MRA neck of 03/15/2017. Electronically Signed: Lee Acosta MD at 14:51 EDT , Service support , 07/27/18 1451 Date cc: Alyssa Banda; Neno Rsoenbaum MD * Signed STUDY: MRA NECK WITHOUT CONTRAST REASON FOR EXAM: Female, 72 years old. CVA. Speech difficulty. TECHNIQUE: Source images were obtained, MIPs were performed. The study was performed unenhanced. COMPARISON: None. FINDINGS: RIGHT CAROTID ARTERIES: Normal right common carotid artery (CCA). Normal right common carotid bulb. Normal origin of the right internal carotid (ICA) artery without a hemodynamically significant stenosis. Normal visualized cervical portion of the right internal carotid artery. Normal origin of the right external carotid artery (ECA). LEFT CAROTID ARTERIES: Normal left common carotid artery (CCA). Normal left common carotid bulb. Normal origin of the left internal carotid (ICA) artery without a hemodynamically significant stenosis. Normal visualized cervical portion of the left internal carotid artery. Normal origin of the left external carotid artery (ECA). VERTEBRAL ARTERIES: Normal antegrade flow within the bilateral vertebral artery without a hemodynamically significant stenosis. They are codominant. AORTIC ARCH: Widely patent aortic arch and origins of great vessels. MRI/MRA Neck without Contrast IMPRESSION: 1. Normal MRA of both cervical common carotid arteries, common carotid artery bifurcations, internal and external carotid arteries. 2. Normal MRA of the aortic arch and the origins of the great vessels. 3. Normal bilateral vertebral arteries. They are codominant. 4. Normal subclavian origins of both vertebral arteries. Electronically Signed: Lee Acosta MD at 9:12 EDT , Service support , CC: Alyssa Banda; Neno Rosenbaum MD Design Engineer Products: Signed BRAIN/HEAD WITHOUT Observed: 07/25/2018 Status: F Source: [place] CONTRAST 5:19 [facility] Imaging Services [address] [place] [address] Brain/Head without Contrast MR#: [id number] Acct: [id number] Name: PRANEETH TOBIN Rep #: [id number] : 1945 F 72 From: Richard Engel MD PCP: Robi MALLOY,Neno Hernández Status: REG ER Study: Brain/Head without Contrast Date of Exam: 07/25/18 Exam# [id number] Ordering Dr: Jayy Ku MD STUDY: CT BRAIN WITHOUT CONTRAST REASON FOR EXAM: Female, 72 years old. Sudden onset of weakness RADIATION DOSAGE (If Supplied By Facility): CTDIvol = ( 44.99 ) mGy, DLP = ( 796.11 ) mGycm TECHNIQUE: Transaxial CT imaging of the brain was performed without administration of intravenous contrast material. Individualized dose optimization techniques were used for this CT. COMPARISON: 07/01/2016 FINDINGS: Normal soft tissue structures. Normal calvarium. Normal size ventricles and extra-axial spaces for the patient's age. Normal white matter tracts of the cerebral hemispheres. Normal basal ganglia and thalami. Normal brainstem. Normal cerebellum. There is no intracranial hemorrhage. There are no findings of an acute ischemic infarction. Normal visualized paranasal sinuses. CT/Brain/Head without Contrast IMPRESSION: Age consistent changes, no acute findings Electronically Signed: Eddy Engel MD at 17:51 EDT , Service support , CC: Jayy Ku MD; Neno Rosenbaum MD Design Engineer Products: Signed CTA CHEST W/WO Observed: 07/25/2018 Status: F Source: [place] CONTRAST 5:19 PM [facility] REPOSITORY [facility] Imaging Services [address] [place] [address] CTA Chest W/WO Contrast MR#: [id number] Acct: [id number] Name: PRANEETH TOBIN Rep #: [id number] : 1945 F 72 From: Richard Frederick MD PCP: Robi MALLOY,Neno [facility] Status: REG ER Study: CTA Chest W/WO Contrast Date of Exam: 07/25/18 Exam# [id number] Ordering Dr: Jayy Ku MD STUDY: CTA CHEST REASON FOR EXAM: Female, 72 years old. Intermittent acute onset sharp chest pain and shortness of breath, weakness. History of hypertension. RADIATION DOSAGE (If Supplied By Facility): CTDIvol = ( 11.49 ) mGy, DLP = ( 577.17 ) mGycm TECHNIQUE: The examination was performed with the intravenous administration of 100ML ml of Isovue 370 contrast material. Post-processing of the angiographic images was performed, with multiplanar reformation and 3D reconstruction. Individualized dose optimization techniques were used for this CT. COMPARISON: PA and lateral chest x-ray July 06, 2018. FINDINGS: Normal enhancement of the main pulmonary artery and right and left pulmonary arteries. Normal enhancement of the bilateral peripheral pulmonary arteries. There is no demonstrated pulmonary embolism. Normal thoracic aorta and visualized great vessels. There is no demonstrated aortic dissection. The heart size is upper normal. Normal pericardium. Normal mediastinum. There are calcified left hilar lymph nodes. Normal visualized trachea and bronchi. The lungs are under expanded. There is minor subsegmental atelectasis in the inferior left lung base. Normal pleura. Normal chest wall structures. There are diffuse degenerative changes of the visualized spine. Is osseous fusion of the vertebral bodies and a few lower thoracic levels There are mild osteoarthritic degenerative changes of the bilateral glenohumeral articulations with subarticular cystic degenerative changes of the humeral heads and glenoids of the scapulae. Normal visualized upper abdomen. CT/CTA Chest W/WO Contrast IMPRESSION: 1. No demonstrated pulmonary embolism or arterial dissection. 2. Poor expiratory effort with subsegmental atelectasis in the inferior left lung base. 3. Calcified lymph nodes seen in the left hilum. Electronically Signed: Eddy Frederick MD at 18:43 EDT , Service support , CC: Jayy Ku MD; Neno Rosenbaum MD Design Engineer Products: Signed CBC W/DIFF, AUTOMATED Collected: 07/25/2018 Status: F Source: [place]LIN 5:05 PM [facility] REPOSITORY TYPE CODE TESTS RESULT OUT OF RANGE REFERENCE UNITS LAB L100.1000 4.4-11.0 K/mm3 Normal WBC 7.8 LAB L100.1200 4.2-5.4 M/mm3 Normal RBC 4.71 LAB L100.1300 12.0-15.0 g/dl Normal HGB 14.1 LAB L100.1400 37-47 % Normal HCT 42.5 LAB L100.1500 81-99 fL Normal MCV 90.2 LAB L100.1600 27.0-32.0 pg Normal MCH 29.9 LAB L100.1700 32-36 g/gl Normal MCHC 33.2 LAB L100.1810 11.6-14.6 % Normal RDW CV 13.5 LAB L100.1820 35.1-43.9 fl High RDW SD 44.4 LAB L100.1900 150-450 K/mm3 Normal PLT 241 LAB L100.2000 6.2-12.0 fl Normal MPV 10.5 LAB L100.2100 47-70 % Normal NEUT% 49.3 LAB L100.2200 19-41 % Normal LY% 36.1 LAB L100.2300 0-10 % High MONO% 12.0 LAB L100.2400 0-5 % Normal EO% 1.9 LAB L100.2500 0-1 % Normal BASO% 0.3 LAB L100.2550 0.0-0.9 % Normal IM GRAN % 0.400 Result Comment: IG% - Immature Granulocytes (promyelocytes, myelocytes and metamyelocytes) > 1% indicates that a LEFT SHIFT is Present. LAB L100.2620 2.0-7.7 X10 3/uL Normal Absolute Neut 3.9 LAB L100.2720 0.83-4.51 X10 3/ul Normal Absolute Lymph 2.82 Performed By: #### L100.0100 #### [facility] [address] [place], [address] BASIC METABOLIC Collected: 07/25/2018 Status: F Source: [place] PROFILE (BMP) 5:05 PM [facility] REPOSITORY TYPE CODE TESTS RESULT OUT OF RANGE REFERENCE UNITS LAB L501.0100 74-106 mg/dL Normal GLU 78 Result Comment: Please note revised GLUCOSE reference range effective 2017. LAB L501.1000 7-18 mg/dL High BUN 20 LAB L501.1100 0.55-1.02 mg/dL High CREAT,SERUM 1.31 Result Comment: The validity of the calculated GFR AND GFRAA in patients over 70 years has not been determined. Clinical correlation is essential. LAB L501.1110 >60 mL/min Low EST GFR 43 Result Comment: Non- GFR Calc LAB L501.1115 >60 mL/min Low EST GFR - AA 52 Result Comment: GFR Calc LAB L501.1255 ml/min Normal Estimated CRCL 30.15 LAB L501.1300 10-20 RATIO Normal BUN/CRE 15.3 LAB L501.2200 8.5-10 mg/dL Normal .1 CA 8.9 LAB L501.5300 136-14 mmol/L Normal 5 NA 138 LAB L501.5600 3.5-5. mmol/L Normal 1 K 4.0 LAB L501.5900 98-107 mmol/L Normal CL 104 LAB L501.6100 21.0-3 mmol/L Normal 2.0 CO2 26.0 LAB L501.6200 5-15 Normal GAP 8 Performed By: #### L500.2500, L501.4010 #### [facility] [address] [place], [address] TROPONIN-I Collected: 07/25/2018 Status: F Source: [place] 5:05 PM [facility] REPOSITORY TYPE CODE TESTS RESULT OUT OF RANGE REFERENCE UNITS LAB L501.4010 <0.045 ng/mL Normal < 0.015 TROPONIN-I Result Comment: TROPONIN-I EXPECTED VALUES <0.045 Negative 0.045 - 0.590 Consistent with Cardiac Damage > OR = 0.600 Critical Value Not every elevated troponin is indicative of OR. These values should be used with clinical judgement in examining the patient's clinical picture for diagnosis. To establish a diagnosis of OR versus myocardial injury, there must be a demonstrated rise and/or fall in the troponin values, in addition to ischemic symptoms, EKG changes, new regional wall motion abnormality, and/or angiographical evidence. PLEASE NOTE: REFERENCE RANGES EDITED 18 Performed By: #### L500.2500, L501.4010 #### [facility] [address] [facility] [place], [address] PROTHROMBIN TIME W/INR Collected: 07/25/2018 Status: F Source: [place] 5:05 PM [facility] REPOSITORY TYPE CODE TESTS RESULT OUT OF RANGE REFERENCE UNITS LAB L300.4150 11.7-14.9 SECONDS Normal PROTIME 12.7 LAB L300.4200 Normal INR 1.0 Performed By: #### L300.3900, L300.4310 #### [facility] [facility] [place], [address] PARTIAL THROMBOPLAST Collected: 07/25/2018 Status: F Source: [place] TIME 5:05 PM [facility] REPOSITORY TYPE CODE TESTS RESULT OUT OF RANGE REFERENCE UNITS LAB L300.4310 24.1-36.2 Seconds Normal PTT 25.2 Performed By: #### L300.3900, L300.4310 #### [facility] [facility] [place], [address] BEDSIDE GLUCOSE Collected: 07/25/2018 Status: F Source: [place] 5:01 PM [facility] REPOSITORY TYPE CODE TESTS RESULT OUT OF RANGE REFERENCE UNITS LAB L501.080 70-110 mg/dL Normal BEDSIDE GLU 83 Result Comment: MANAGEMENT OF PATIENT CARE PER NURSING PROTOCOL Performed By: #### L501.080 #### [facility] [address] [place] [address]. [place] [address] STRESS REPORT Observed: 07/06/2018 Status: F Source: [place] 10:13 AM [facility] REPOSITORY [facility] Cardiovascular Services [address] [place] [address] MR#: [id number] Acct: [id number] Name: PRANEETH TOBIN Rep #: [id number] : 1945 72 From: Shay Forrest MD Primary Care: Robi MALLOY,Neno Chi Status: REG CLI Ordering Dr: Sex: F C Stress Test Report Date: 07/06/2018 Procedure: Exercise tolerance test/imaging study Indications: Shortness of breath/dyspnea Consent: Per the patient Procedure: The patient exercised on a Raheel protocol for 5 minutes and 15 seconds completing Stage I and 2 minutes and 15 seconds of Stage II achieving a peak heart rate of 127 bpm (85 % predicted maximal heart rate) with a peak blood pressure 142/78 mmHg and a peak MET capacity of 7 METs. The baseline ECG demonstrated sinus bradycardia. The peak exercise ECG demonstrated somatic/motion artifact no obvious ECG changes. There were no cardiac dysrhythmias pretest, during exercise, or recovery. The functional capacity was considered average. There was no complaint of chest discomfort during exercise or recovery. The examination was discontinued secondary to dyspnea. Impression: 1. Technically adequate (percent predicted maximal heart rate greater than 85%) exercise tolerance test 2. Peak exercise ECG with somatic/motion artifact with no obvious ECG changes 3. There were no cardiac dysrhythmias pretest, during exercise, or recovery. 4. Nuclear images pending Myocardial perfusion imaging study: Technique: The patient was injected with 11 mCi of technetium 99m Cardiolite and subsequently rest SPECT Cardiolite nuclear imaging was obtained in the horizontal long, vertical long, and short axis views. The patient exercised on a Raheel protocol for 5 minutes and 15 seconds completing Stage I and 2 minutes and 15 seconds of Stage II achieving a peak heart rate of 127 bpm (85 % predicted maximal heart rate) with a peak blood pressure 142/78 mmHg and a peak MET capacity of 7 METs. The patient was injected with 33 mCi of technetium 99m Cardiolite and subsequently stress SPECT Cardiolite nuclear imaging was obtained in the horizontal long, vertical long, and short axis views. A gated Cardiolite study at peak stress was obtained. Interpretation: Rest and stress SPECT Cardiolite nuclear imaging status post realignment, normalization, and attenuation correction, demonstrates the appearance of relative uniform tracer uptake and myocardial perfusion appearing within normal limits. There is end systolic thickening and brightening. The gated Cardiolite study demonstrates myocardial thickening and inward wall motion. The reported LVEF is 84 %. Impression: 1. Rest and stress SPECT Cardiolite nuclear imaging demonstrate relative uniform tracer uptake and myocardial perfusion appearing within normal limits. 2. The gated Cardiolite study reports an LVEF of 84 %. This note was generated with [employer] software. It may contain incorrect words, spelling, and punctuation that were not noted in checking the note before signing. 07/06/18 1013 <Electronically signed by Shay Forrest MD> Date Shay Forrest MD CC: Shay Forrest MD; Neno Rosenbaum MD Date Dictated: 07/06/18 1009 Date Transcribed: 07/06/18 100 Design Engineer Products: PM Signed CHEST PA AND LATERAL Observed: 07/06/2018 Status: F Source: [place] 6:40 AM [facility] REPOSITORY [facility] Imaging Services [address] [place] [address] Chest PA and Lateral MR#: [id number] Acct: [id number] Name: PRANEETH TOBIN Rep #: [id number] : 1945 F 72 From: Alex Chandler MD PCP: Neno Rosenbaum MD, Chi Status: REG CLI Study: Chest PA and Lateral Date of Exam: 07/06/18 Exam# [id number] Ordering Dr: Shay Forrest MD STUDY: X-RAY CHEST REASON FOR EXAM: Female, 72 years old. Shortness of breath TECHNIQUE: Frontal and lateral views of the chest COMPARISON: 12/23/2014 FINDINGS: The lungs are clear. There are no pleural effusions. There is no pneumothorax. The heart is normal in size. The visualized osseous structures are within normal limits. RAD/Chest PA and Lateral IMPRESSION: No acute thoracic pathology. Electronically Signed: Alex Chandler, at 20:52 EDT Tel , Service support , CC: Shay Forrest MD; Neno Rosenbaum MD Design Engineer Products: Signed CARDIOLOGY VISIT Observed: 06/29/2018 Status: F Source: [place] REPORT 11:44 AM [facility] REPOSITORY [facility] [address] [place] [address] OFFICE VISIT Date of Service: 06/29/18 MR#: [id number] Acct: [id number] Name: PRANEETH TOBIN Rep #: [id number] : 1945 Provider: Shay Forrest MD Age/Sex: 72/F Location: [facility] Status: Signed HPI HPI Details: PRANEETH TOBIN, is a 72 F who presents to the office today for for outpatient cardiovascular consultation based upon concerns of shortness of breath, peripheral edema, and echocardiographic findings suggesting decreased diastolic compliance. The patient states that she has been progressively short of breath and dyspneic. She has noted this at rest and at night on occasion but more so when she is up and active and ambulating. She is also had an element of peripheral pitting edema. She notes that when she is up and active and become short of breath she feels her heart beating harder. She does not describe other forms of chest discomfort. There is been no associated nausea, emesis, or diaphoresis. There has been no near syncope or syncope. She has undergone laboratory profile which thus far has been unrevealing for any obvious etiology of her symptoms. She does not recall having a chest x-ray performed. She did have a transthoracic echocardiogram performed. Her left ventricle was thought to be normal with an LVEF 65% with decreased diastolic compliance as well as trivial TR and an estimated RV systolic pressure of 25 mmHg. She states she underwent exercise tolerance test many years ago which was thought to be negative as she did not require a diagnostic cardiac catheterization. She did have an ECG in the office today. She was noted to be in sinus bradycardia. She had no acute ECG changes. Intake Vital Signs06/29/18 Height 5 ft 2 in 06/29/18 Weight: 201 lb 06/29/18 Body Mass Index (BMI) 36.7 06/29/18 Blood Pressure 120/78 Intake Visit Reasons: Diastolic Dysfunction/Ref. Robi Allergies sulfadimethoxine Allergy (Mild, Verified 06/29/18 09:59) unknown Medications levothyroxine 88 mcg tablet 88 mcg PO QDAY 06/27/18 [History Confirmed 06/29/18] valsartan 160 mg tablet 160 mg PO QDAY 06/27/18 [History Confirmed 06/29/18] aspirin 81 mg tablet,delayed release 81 mg PO QDAY 06/29/18 [History Confirmed 06/29/18] atorvastatin 40 mg tablet 40 mg PO QDAY 06/29/18 [History Confirmed 06/29/18] citalopram 20 mg tablet 20 mg PO QDAY 06/29/18 [History Confirmed 06/29/18] furosemide 20 mg tablet 20 mg PO QDAY PRN 06/29/18 [History Confirmed 06/29/18] metoprolol succinate ER 25 mg tablet,extended release 24 hr 25 mg PO BID tab 06/29/18 [History Confirmed 06/29/18] [facility] Medical History Diastolic dysfunction (Acute) Hyperlipidemia (Chronic) Hypertension (Chronic) Asthma (Chronic) Hypothyroidism (Chronic) Generalized osteoarthritis (Chronic) History of TIA (transient ischemic attack) and stroke (Acute) Osteoarthritis (Acute) Plantar fasciitis (Acute) Hypoglycemia (Inactive) Mini stroke (Inactive) possible OR (Inactive) Surgical History History of hernia repair (Resolved) History of hysterectomy (Resolved) History of tonsillectomy and adenoidectomy (Resolved) History of tubal ligation (Resolved) H/O: hysterectomy (Inactive) S/P hernia repair (Inactive) S/P tonsillectomy (Inactive) Family History Father Cancer CVA (cerebral vascular accident) Hypertension CAD (coronary artery disease) Brother Cancer Kidney disease Mother Hypertension CAD (coronary artery disease) Kidney disease Brother Cancer Colon Social History Smoking Status: Never smoker alcohol intake: current details: occasional ROS Const Const: Negative for fatigue, weakness, weight gain, weight loss, frequent falls or excessive sweating Eyes Eyes: Negative for change in vision, blurry vision or transient loss of vision ENT ENT: Positive for dizziness (occasional ); negative for balance problems Cardio Chest Pain: No Palpitations: Yes feels like its: fast (when SOB w/activity) Edema: Bilateral (occasional) Muscle aches with walking: None Additional Details: HX arthritis in sternum Resp Respiratory: Positive for SOB with activity (not related to Asthma); negative for SOB at rest Additional Details: HX Asthma GI GI: Negative vomiting or vomiting blood/hematemesis : Negative for hematuria Musc Musc: Positive for joint pain (HX arthritis); negative for balance problems, muscle aches/ myalgia or muscle weakness Skin Skin: Negative non-healing lesions or rash Neuro Neuro: Positive for dizziness (occasional ) and memory loss (issues with memory, mental blamks; HX TIA's); negative for weakness, blurry vision, lightheadedness, frequent falls or orthostatic symptoms Robbin Hematologic/Lymphatic: Negative for easy bleeding Endo Endo: Negative for fatigue or excessive sweating Psych Psych: Negative for anxiety or depression Allergy Allergy/Immunology: Negative for hives, Negative for rash Cardiology Exam Const Appearance: cooperative, healthy appearing, comfortable, no acute distress, well developed and well groomed Nutritional Appearance: overweight Orientation: alert, awake and oriented x3 Head Head: normal to inspection, normocephalic and atraumatic Ears: hearing grossly normal bilaterally Nose: external nose normal Face and Sinus: face symmetric Mouth: oral mucosae normal Teeth and gingiva: fair dentition Eyes Eyelids: eyelids normal Conjunctivae: conjunctivae normal Pupils: PERRL EOM: EOM intact bilaterally Neck Neck: normal visual inspection and full ROM Carotids: normal carotid upstroke Chest Chest inspection: normal inspection of the chest and symmetric chest movement Auscultation: Bilateral: Clear to Auscultation Cardio Palpation: normal PMI Rate: regular rate Rhythm: regular rhythm Heart sounds: S1 normal and S2 normal GI GI: normal to inspection, bowel sounds present and soft Neuro General: alert, awake, oriented x3 and moves all extremities Skin Skin: no rashes or lesions noted Extremities Pulses: Normal: Right Radial Pulse, Left Radial Pulse Psych Psychological: normal affect Assessment AND Plan 1. Diastolic dysfunction I51.9 Plan At the present time she does have an element of decreased diastolic compliance. Is unclear whether this is the sole etiology for her symptoms. Thus at this time it was felt that she continue her medical management as she seems to feel she has had improvement on her medications with respect to her shortness of breath and more so her edema but not total resolution especially with respect to her shortness of breath symptoms. She will also have a chest x-ray to further evaluate her pulmonary status knowing she states she has a history of underlying pulmonary disease including asthma. It was felt reasonable she undergo a follow-up exercise tolerance test to further evaluate her symptoms, her functional status, and any ischemic burden she may have that would warrant further evaluation with diagnostic cardiac catheterization. Orders Orders: 2. Hyperlipidemia, unspecified hyperlipidemia type E78.5 Plan She will continue medical management and follow-up with her primary care physician at this time Orders Orders: 3. Essential hypertension I10 Plan Her blood pressure appears to be improved. She will continue her current medical management per Orders Orders: 4. Shortness of breath R06.02 Plan Again based upon her continued shortness of breath and dyspnea was felt reasonable she undergo further evaluation. This will not start with a noninvasive study as noted above. This may progressed to an invasive study with a diagnostic cardiac catheterization if there are ongoing concerns of the possibility of CAD contributing to her symptoms. In the meantime she will continue her medical management. Orders Orders: Plan Detail Additional Comments Thank you for allowing me to participate in the care of your patient. Please don't hesitate to call if any issues arise. This note was generated using a voice recognition system and there may be incorrect words, spelling or punctuation that were not noted when reviewing the office note prior to saving. Follow Up 6 Months (PFM) Coding Level of Care Code Off vis,new,level 4 Diagnoses Diastolic dysfunction I51.9 Hyperlipidemia, unspecified hyperlipidemia type E78.5 Hyperlipidemia type: unspecified Essential hypertension I10 Hypertension type: essential hypertension Shortness of breath R06.02 Coding Level of Care Code Off vis,new,level 4 Diagnoses Diastolic dysfunction I51.9 Hyperlipidemia, unspecified hyperlipidemia type E78.5 Hyperlipidemia type: unspecified Essential hypertension I10 Hypertension type: essential hypertension Shortness of breath R06.02 06/29/18 1144 <Electronically signed by Shay Forrest MD> Date Shay Forrest MD Cosign Signature: Date (if applicable) CC: Neno Rosenbaum MD ECHO, COMPLETE W/ Observed: 03/30/2018 Status: F Source: [place] CONTRAST 5:09 PM [facility] REPOSITORY [facility] Cardiovascular Services [address] [place] [address] Echo Complete W/ Contrast 03/30/18 0858 MR#: [id number] Acct: [id number] Name: PRANEETH TOBIN Rep #: [id number] : 1945 72 From: Jayy Busch MD Attending Dr: Neno Rosenbaum MD, Chi Status: REG CLI Ordering Dr: Neno Rosenbaum MD Date: 03/30/18 Location: [facility] Sex: F C Admitted: Reason For Study: SOB Procedure This was a 2D Doppler, Color Flow transthoracic echocardiogram. Exam performed in department. Left Ventricle Normal size and thickness. The estimated ejection fraction is 65 %. Stage 1 diastolic dysfunction. No regional wall motion abnormalities noted. Right Ventricle Normal size and thickness. Normal systolic function. Atria Normal left atrium. Normal right atrium. Normal atrial septum. Mitral Valve The mitral valve is structurally normal. No prolapse or stenosis seen. Tricuspid Valve Normal tricuspid valve. Trivial tricuspid valve insufficiency. Right ventricular systolic pressure estimated to be 25 mmHg. Aortic Valve Normal aortic valve. Trisinus/trileaflet aortic valve. Pulmonic Valve Normal pulmonic valve. Great Vessels Normal aortic root. Normal arch. Normal inferior vena cava. Inferior vena cava collapse with sniff. Pericardium/Pleural No pericardial effusion. Medication Definity0.2ml given slow IV push to enhance endocardial definition. MMode/2D Measurements AND Calculations LVIDd: 4.0 cm IVSd: 0.86 cm Ao root diam: 2.9 cm LVIDs: 2.6 cm LVPWd: 0.93 cm RVDd: 3.3 cm FS: 33.6 % LAV(MOD-bp): 27.8 ml LA A4 area: 11.0 cm2 RA A4 area: 10.8 cm2 LAV(MOD-bp) Indexed: 14.5 ml/m2 LAV(MOD-sp2): 32.2 ml LAV(MOD-sp4): 23.3 ml Doppler Measurements AND Calculations MV E max michael: 66.2 cm/sec Lat Peak E' Michael: 8.5 cm/sec Med Peak E' Michael: 4.5 cm/sec MV A max michael: 85.2 cm/sec E/E' lat: 7.8 E/E' med: 14.7 MV E/A: 0.78 Ao V2 max: 116.4 cm/sec LV V1 max: 95.3 cm/sec PA V2 max: 73.1 cm/sec Ao max P.4 mmHg LV V1 max P.6 mmHg Ao V2 mean: 83.9 cm/sec Ao mean P.0 mmHg Ao V2 VTI: 29.9 cm TR max michael: 221.0 cm/sec TR max P.6 mmHg Interpretation Summary The estimated ejection fraction is 65 %. Stage 1 diastolic dysfunction. Trivial tricuspid valve insufficiency. Right ventricular systolic pressure estimated to be 25 mmHg. Comapred to echo report dated 06/16/2005, no appreciable changes noted. The study was technically difficult. Contrast injection was performed. Ordering Physician: Neno Rosenbaum Referring Physician: Neno Rosenbaum Chi Performed By: Sandy Santiago, KYLE, RVT 03/30/181707 Date Jayy Busch MD CC: Neno Rosenbaum MD Date Dictated: 03/30/18857 Date Transcribed: 03/30/181707 Design Engineer Products: Signed CBC W/DIFF, AUTOMATED Collected: 03/10/2018 Status: F Source: [place] 10:26 AM [facility] REPOSITORY TYPE CODE TESTS RESULT OUT OF RANGE REFERENCE UNITS LAB L100.1000 4.4-11.0 K/mm3 Normal WBC 6.5 LAB L100.1200 4.2-5.4 M/mm3 Normal RBC 4.84 LAB L100.1300 12.0-15.0 g/dl Normal HGB 14.4 LAB L100.1400 37-47 % Normal HCT 43.9 LAB L100.1500 81-99 fL Normal MCV 90.7 LAB L100.1600 27.0-32.0 pg Normal MCH 29.8 LAB L100.1700 32-36 g/gl Normal MCHC 32.8 LAB L100.1810 11.6-14.6 % Normal RDW CV 13.4 LAB L100.1820 35.1-43.9 fl High RDW SD 44.1 LAB L100.1900 150-450 K/mm3 Normal PLT 253 LAB L100.2000 6.2-12.0 fl Normal MPV 10.6 LAB L100.2100 47-70 % Normal NEUT% 48.3 LAB L100.2200 19-41 % Normal LY% 39.4 LAB L100.2300 0-10 % Normal MONO% 9.4 LAB L100.2400 0-5 % Normal EO% 2.3 LAB L100.2500 0-1 % Normal BASO% 0.3 LAB L100.2550 0.0-0.9 % Normal IM GRAN % 0.300 Result Comment: IG% - Immature Granulocytes (promyelocytes, myelocytes and metamyelocytes) > 1% indicates that a LEFT SHIFT is Present. LAB L100.2620 2.0-7.7 X10 3/uL Normal Absolute Neut 3.1 LAB L100.2720 0.83-4.51 X10 3/ul Normal Absolute Lymph 2.55 Performed By: #### L100.0100 #### [facility] [address] [facility] [place], [address] VITAMIN D,25 HYDROXY Collected: 03/10/2018 Status: F Source: [place] 10:26 AM [facility] REPOSITORY TYPE CODE TESTS RESULT OUT OF REFERENCE UNITS RANGE LAB L506.1000 29.95-100.01 ng/mL Low Vitamin D 21.9 25-OH Result Comment: Vitamin D 25(OH) Status Range Deficiency <20 ng/mL (50nmol/L) Insuffciency 20 - 30 ng/mL (50 - 75 nmol/L) Sufficiency 30 - 100 ng/mL (75 - 250 nmol/L) Toxicity >100 ng/mL (>250 nmol/L) Performed By: #### L506.1000 #### [facility] [address] [facility] [place], [place], [address] COMPREHENSIVE METABOLIC Collected: 03/10/2018 Status: F Source: [facility] 10:26 AM [facility] REPOSITORY TYPE CODE TESTS RESULT OUT OF RANGE REFERENCE UNITS LAB L501.0100 74-106 mg/dL High GLU 107 Result Comment: Fasting Glucose result from 100 to 125 mg/dL suggests IMPAIRED HOMEOSTASIS per A.D.A. criteria. Please note revised GLUCOSE reference range effective 2017. LAB L501.1000 7-18 mg/dL Normal BUN 15 LAB L501.1100 0.55-1.02 mg/dL Normal CREAT,SERUM 0.84 Result Comment: The validity of the calculated GFR AND GFRAA in patients over 70 years has not been determined. Clinical correlation is essential. LAB L501.1110 >60 mL/min Normal EST GFR 71 Result Comment: Non- GFR Calc LAB L501.1115 >60 mL/min Normal EST GFR - AA 86 Result Comment: GFR Calc LAB L501.1300 10-20 RATIO Normal BUN/CRE 17.8 LAB L501.1500 6.4-8.2 g/dL T Normal PROT 6.6 LAB L501.1800 3.2-5.0 g/dL Normal ALB 3.4 LAB L501.1950 2.2-4.2 g/dL Normal GLOB 3.2 LAB L501.2000 0.9-2.4 RATIO Normal A/G 1.1 LAB L501.2200 8.5-10.1 mg/dL CA Normal 8.7 LAB L501.4100 15-37 U/L Normal AST 20 LAB L501.4305 45-117 U/L Normal ALK P 109 LAB L501.4405 13-56 U/L Normal ALT 33 Result Comment: Please note revised ALT reference range effective 2017. LAB L501.4600 0.20-1.00 mg/dL Normal T BILI 0.60 LAB L501.5300 136-145 mmol/L Normal NA 142 LAB L501.5600 3.5-5.1 mmol/L Normal K 4.3 LAB L501.5900 98-107 mmol/L Normal CL 107 LAB L501.6100 21.0-32.0 mmol/L Normal CO2 29.0 LAB L501.6200 5-15 Normal GAP 6 Performed By: #### L500.4050, L500.4100, L501.9520 #### [facility] [address] [place], [place], [address] LIPID PROFILE Collected: 03/10/2018 Status: F Source: [place] 10:26 AM [facility] REPOSITORY TYPE CODE TESTS RESULT OUT OF RANGE REFERENCE UNITS LAB L501.4900 200 mg/dL Normal CHOL 169 Result Comment: <200 mg/dL Desirable 200-240 mg/dL Borderline >240 mg/dL High Risk LAB L501.5000 mg/dL Normal TRIG 157 Result Comment: The drugs N-Acetylcysteine and Metamizole may falsely depress this assay. Serum Triglycerides Reference Interval Normal <150 mg/dL Borderline high 150 - 199 mg/dL High 200 - 499 mg/dL Very High > or = 500 mg/dL LAB L501.6400 mg/dL Normal HDL 66 Result Comment: The drugs N-Acetylcysteine and Metamizole may falsely depress this assay. Reference Range HDL <40 mg/dL Low HDL Cholesterol HDL >or= 60 mg/dL High HDL Cholesterol LAB L501.6500 0-130 mg/dL Normal LDL 72 LAB L501.6600 5-40 mg/dL Normal VLDL 31 Performed By: #### L500.4050, L500.4100, L501.9520 #### [facility] [address]. [place], [place], [address] THYROID STIM HORMONE Collected: 03/10/2018 Status: F Source: [place] (TSH) 10:26 AM [facility] REPOSITORY TYPE CODE TESTS RESULT OUT OF RANGE REFERENCE UNITS LAB L501.9520 0.358-3.74 uIU/mL Normal TSH 0.36 Performed By: #### L500.4050, L500.4100, L501.9520 #### [facility] [address] [facility] [place], [place], [address] HEPATITIS C ANTIBODIES Collected: 03/10/2018 Status: F Source: [place] 10:26 AM [facility] REPOSITORY TYPE CODE TESTS RESULT OUT OF RANGE REFERENCE UNITS LAB L3100.0650 0.0-0.9 s/co ratio Normal HEP C AB <0.1 Result Comment: Negative: < 0.8 Indeterminate: 0.8 - 0.9 Positive: > 0.9 The CDC recommends that a positive HCV antibody result be followed up with a HCV Nucleic Acid Amplification test (719054). Performed at: - [facility] [address] [id number] Training Development Manager: Baudilio Garcia PhD, Phone: [phone] Performed By: #### L3100.0625 #### [facility] (refer to report for specific site) refer to report for address and phone number ALLERGIES ALLERGIES DATE TYPE / CODE NAME / CODE REACTION SEVERITY SOURCE 07/25/2018 Drug sulfadimetho Unknown [facility] Allergy/4160 xine/[id number] Hospital 89084(SNOMED 825(RXNORM) Repository CT) ENCOUNTERS ENCOUNTERS ADMIT/DISCHARGE ACCOUNT ADMITTING ENCOUNTER LOCATION SOURCE NUMBER CLASS 11/13/2018 [id number] Ambulatory Aylin [place] 0 [facility] Hospital ing:LAB.CLEO Repository E 11/03/2018 [id number] Ambulatory Aylin [place] 2 [facility] Hospital ing:SL Repository 09/18/2018 [id number] Ambulatory [place]in [place] 9 [facility] Hospital ing:SL Repository 09/08/2018 [id number] Ambulatory Aylin [place] 3 [facility] ing:POLAB3 Repository 07/27/2018 [id number] Ambulatory BMSBuilding:W [place] 6 [facility] Repository 07/27/2018 [id number] Ambulatory Aylin [place] 6 [facility] ing:[facility] Repository 07/26/2018 [id number] Ambulatory BMSBuilding:W [place] 5 [facility] [facility] Repository 07/25/2018 [id number] Alyssa Banda Ambulatory BMSBuilding:B Ayl[place] 2 [facility] Repository 07/25/2018 [id number] Alyssa Ambulatory BMSBuilding:B [place] 0 [facility] Repository 07/25/2018 [id number] Ambulatory BMSBuilding:B [place] 9 [facility] Repository 07/25/2018/ [id number] Alyssa Ambulatory [place] Aylin 8 6 [facility] ing:PCURoom: Repository [id number]: 1 07/06/2018 [id number] Ambulatory BMSBuilding:W Ayl[place] 3 [facility] Repository 07/06/2018 [id number] Ambulatory Aylin [place] 7 [facility] Hospital ing:[facility] Repository 06/29/2018/ [id number] Ambulatory BMSBuilding:B [place] 8 0 [facility] Repository 06/27/2018 [id number] Ambulatory BMSBuilding:B Ayl[place] 5 [facility] Repository 03/30/2018 [id number] Ambulatory BMSBuilding:W [place] 0 [facility] Repository 03/30/2018 [id number] Ambulatory Aylin [place] 4 [facility] ing:[facility] Repository 03/10/2018 [id number] Ambulatory Aylin [place] 7 [facility] ing:POLAB3 Repository PAYERS PAYERS ENCOUNTER GUARANTOR PAYER SUBSCRIBER SOURCE 11/13/2018 PRANEETH Beltran Primary PRANEETH Ruby [place] [id number] Insurance:HUMANA CRISTADOB: Community [place] PPOPolicy [id number] Number: Repository [address]Xrq: 330 [id number] [phone] (HP) Date:2027-92-79ZM [address] [address]TJ: 11/13/2018 Secondary NOT GIVENUNK [place] Insurance:SELF PAY [facility] Number: Effective Repository Date:2018-09-21 11/03/2018 PRANEETH Beltran Primary PRANEETH [place] [id number] Insurance:CHELSEY ACUÑAB: [facility] MEDICARE [facility] [id number] Number: Repository [address]Sjh: 330 [id number] [phone] (HP) Date:0773-61-11XN [address] [address]XU: 11/03/2018 Secondary NOT GIVENUNK [place] Insurance:SELF PAY [facility] Number: Effective Repository Date:2018-10-03 09/18/2018 PRANEETH Beltran Primary PRANEETH [place] [id number] Insurance:HUMANA ARIANNEB: Community [place] PPOPolicy [id number] Number: Repository [address]Srb: 330 [id number] [phone] (HP) Date:2401-89-94UK [address] [address]PI: 09/18/2018 Secondary NOT GIVENUNK [place] Insurance:SELF PAY [facility] Number: Effective Repository Date:2018-09-13 09/08/2018 PRANEETH Beltran Primary PRANEETH [place] [id number] Insurance:HUMANA GRAHAMDOB: Community [place] PPOPolicy [id number] Number: Repository [address]Zog: (330 [id number] [phone] (HP) Date:3918-66-49IS [address] [place] [address]ST: 09/08/2018 Secondary NOT GIVENUNK [place] Insurance:SELF PAY [facility] Number: Effective Repository Date:2018-09-08 07/27/2018 PRANEETH J Primary PRANEETH Ruby Aylin [id number] Insurance:HUMANA GRAHAMDOB: Community [place] PPOPolicy [id number] Number: Repository [address]Hnn: (330 [id number] [phone] (HP) Date:3349-74-44NG [address] [address]EL: 07/27/2018 Secondary NOT GIVENUNK [place] Insurance:SELF PAY [facility] Number: Effective Repository Date:2018-07-27 07/27/2018 PRANEETH Beltran Primary NOT GIVENUNK [place] [id number] Insurance:SELF PAY [address] Number: Effective Repository [id number]: (330) Date:2018-07-27 [phone] (HP) 07/26/2018 PRANEETH J Primary PRANEETH Ruby Aylin [id number] Insurance:HUMANA GRAHAMDOB: Community [place] PPOPolicy [id number] [place] Number: Repository [address]Rix: (330 [id number] [phone] (HP) Date:0329-87-82HU[address] [address]UR: 07/26/2018 Secondary NOT GIVENUNK [place] Insurance:SELF PAY [facility] Number: Effective Repository Date:2018-07-26 07/25/2018 PRANEETH J Primary PRANEETH Ruby [place] [id number] Insurance:HUMANA GRAHAMDOB: Community [place] PPOPolicy [id number] Number: Repository [address]Dro: (330) [id number] [phone] (HP) Date:0397-51-49HM [address] [address]ZT: 07/25/2018 Secondary NOT GIVENUNK [place] Insurance:SELF PAY [facility] Number: Effective Repository Date:2018-07-25 07/25/2018 PRANEETH J Primary PRANEETH J [place] [id number] Insurance:HUMANA CRISTADOB: Community [place] PPOPolicy [id number] Number: Repository [phone]: (330) [id number] [phone] (HP) Date:3071-98-37KY [address] [address]BE: 07/25/2018 Secondary NOT GIVENUNK [place] Insurance:SELF PAY [facility] Number: Effective Repository Date:2018-07-25 07/25/2018 PRANEETH J Primary PRANEETH J [place] [id number] Insurance:HUMANA CRISTADOB: Community [place] PPOPolicy [id number] Number: Repository [address]Jmm: (330) [id number] [phone] (HP) Date:2291-72-50PO [address] [address]QI: 07/25/2018 Secondary NOT GIVENUNK [place] Insurance:SELF PAY [facility] Number: Effective Repository Date:2018-07-25 07/25/2018 PRANEETH J Primary PRANEETH J [place] [id number] Insurance:HUMANA CRISTADOB: Community [place] PPOPolicy [id number] Number: Repository [phone]: (330 [id number] [phone] (HP) Date:9607-47-72OO [address] [address]GD: 07/25/2018 Secondary NOT GIVENUNK [place] Insurance:SELF PAY [facility] Number: Effective Repository Date:2018-07-25 07/06/2018 PRANEETH Beltran Primary PRANEETH Ruby [place] [id number] Insurance:HUMANA CRISTADOB: [facility] MEDICARE PPOPolicy [id number] Number: Repository [phone]: 330 [id number] [phone] (HP) Date:1757-05-85CX [address] [address]FT: 07/06/2018 Secondary NOT GIVENUNK [place] Insurance:SELF PAY [facility] Number: Effective Repository Date:2018-07-06 07/06/2018 PRANEETH Beltran Primary PRANEETH Ruby TurnerChokio [id number] Insurance:HUMANA BETSYDEEPTHIB: Community [place] PPOPolic [id number] Number: Repository [address]Pgj: 330 [id number] [phone] (HP) Date:5314-90-66IE[address] [address]ED: 07/06/2018 Secondary NOT GIVENUNK Ayl[place] Insurance:SELF PAY [facility] Number: Effective Repository Date:2018-06-29 06/29/2018 PRANEETH Beltran Primary PRANEETH Ruby TurnerChokio [id number] Insurance:HUMANA ARIANNEB: [facility] MEDICARE PPOPolicy [id number] Number: Repository [address]Jkm: 330 [id number] [phone] (HP) Date:5466-20-36UU [address] [address]FT: 06/29/2018 Secondary NOT GIVENUNK [place] Insurance:SELF PAY [facility] Number: Effective Repository Date:2018-06-29 06/27/2018 PRANEETH Beltran Primary PRANEETH Turneroster [id number] Insurance:HUMANA GRAHAMDOB: [facility] MEDICARE PPOPolicy [id number] Number: Repository [address]Yhz: 330 [id number] [phone] (HP) Date:9072-85-00YD [address] [address]XX: 06/27/2018 Secondary NOT GIVENUNK [place] Insurance:SELF PAY [facility] Number: Effective Repository Date:2018-06-27 03/30/2018 PRANEETH J Primary PRANEETH J [place] [id number] Insurance:HUMANA GRAHAMDOB: Community [place] PPOPolicy [id number] [place] Number: Repository [address]Jiy: (330 [id number] [phone] (HP) Date:4770-78-13LK [address] [address]BH: 03/30/2018 Secondary NOT GIVENUNK [place] Insurance:SELF PAY [facility] Number: Effective Repository Date:2018-03-30 03/30/2018 PRANEETH J Primary PRANEETH J [place] [id number] Insurance:HUMANA GRAHAMDOB: Community [place] PPOPolicy [id number] [place] Number: Repository [address]Npn: (330 [id number] [phone] (HP) Date:6478-96-82EZ[address] [address]EH: 03/30/2018 Secondary NOT GIVENUNK [place] Insurance:SELF PAY [facility] Number: Effective Repository Date:2018-03-10 03/10/2018 Praneeth J Primary Praneeth J [place] [id number] Insurance:HUMANA GrahamDOB: Community [place] PPOPolicy [id number] Number: Repository [id number]: (330 [id number] [phone] (HP) Date:1737-05-92BW [address] [address]LP: 03/10/2018 Secondary NOT GIVENUNK [place] Insurance:SELF PAY [facility] Effective Repository Date:2018-03-10
== END ==
PROVIDERS: Family Provider Family Medicine Geriatric Medicine; PCP Family Medicine Geriatric Medicine; Referring Provider Family Medicine Geriatric Medicine; Visit Provider Family Medicine Geriatric Medicine
DX: E03.9 Hypothyroidism, unspecified (principal)
CPT/HCPCS: 36415; 84443

== ENCOUNTER → 2019-01-17 13:47 | Outpatient (CLI) | payer MEDICARE, SELFPAY | PROVIDERS: Family Provider Family Medicine Geriatric Medicine; PCP Family Medicine Geriatric Medicine; Referring Provider Family Medicine Geriatric Medicine; Visit Provider Family Medicine Geriatric Medicine | DX: R68.83 Chills (without fever) (principal) | CPT/HCPCS: 87633 ==

== ENCOUNTER → 2019-03-30 | Outpatient (CLI) | payer MEDICARE, SELFPAY ==
[2019-03-09 11:28] VITALS: BMI 35.4
[2019-03-30 12:18] LABS: Absolute Lymphocyte Count 2.23 X10^3/ul (0.83-4.51); Absolute Neutrophil Count 3.5 X10^3/uL (2.0-7.7); Basophil# 0.03 X10^3/uL; Basophil% 0.5 % (0-1); Eosinophil# 0.15 X10^3/uL; Eosinophils% 2.3 % (0-5); Hematocrit 41.3 % (37-47); Hemoglobin 13.3 g/dl (12.0-15.0); Lymphocyte # 2.23 X10^3/ul (4.0); Lymphocyte % 33.8 % (19-41); Mean Corp Hgb Conc 32.2 g/gl (32-36); Mean Corpuscular Hgb 29.9 pg (27.0-32.0); Mean Corpuscular Volume 92.8 fL (81-99); Mean Platelet Vol. 10.7 fl (6.2-12.0); Monocyte# 0.64 X10^3/uL; Monocyte% 9.7 % (0-10); Neutrophil # 3.52 X10^3/uL (2.7-7.7); Neutrophil % 53.2 % (47-70); Platelet Count 230 K/mm3 (150-450); RBC Distribution Width CV 14.2 % (11.6-14.6); RBC Distribution Width SD 47.9 fl (35.1-43.9); Red Blood Count 4.45 M/mm3 (4.2-5.4); White Blood Count 6.6 K/mm3 (4.4-11.0)
[2019-03-30 12:19] LABS: POSITIVE COUNT NO; POSITIVE DIFFERENTIAL NO; POSITIVE MORPHOLOGY NO
[2019-03-30 12:46] LABS: AST(SGOT) 22 U/L (15-37); Alanine Aminotransfer ALT/SGPT 36 U/L (13-56); Albumin, Serum 3.2 g/dL (3.2-5.0); Alkaline Phosphatase 108 U/L (45-117); Anion Gap 5 (5-15); BUN 19 mg/dL (7-18); BUN/Creat Ratio 23.6 RATIO (10-20); Calcium,Total 8.4 mg/dL (8.5-10.1); Chloride 109 mmol/L (98-107); Cholesterol 164 mg/dL (200); EST Glomerular Filtration Rate 75 mL/min (>60); Est Glom Filt Rate - Afr Amer 90 mL/min (>60); Globulin 3.1 g/dL (2.2-4.2); Glucose 91 mg/dL (74-106); High Density Lipoprotein 64 mg/dL; Potassium 4.1 mmol/L (3.5-5.1); Protein, Total 6.3 g/dL (6.4-8.2); Sodium Level 142 mmol/L (136-145); Thyroid Stim Hormone (TSH) 0.79 uIU/mL (0.358-3.74); Triglycerides 91 mg/dL; Very Low Density Lipoprotein 18 mg/dL (5-40)
== END | disposition home or self-care (01) ==
PROVIDERS: Family Provider Family Medicine Geriatric Medicine; PCP Family Medicine Geriatric Medicine; Visit Provider Family Medicine Geriatric Medicine
DX: E55.9 Vitamin D deficiency, unspecified (principal); E78.5 Hyperlipidemia, unspecified; I10 Essential (primary) hypertension
CPT/HCPCS: 36415; 80053; 80061; 82306; 84443; 85025

== ENCOUNTER → 2019-04-03 | Outpatient (CLI) | payer MEDICARE, SELFPAY ==
[2019-03-09 11:28] VITALS: BMI 35.4
--- NOTE | 2019-04-03 12:09 | RAD_ITS ---
STUDY: X-RAY CHEST REASON FOR EXAM: Female, 73 years old. Shortness of breath TECHNIQUE: PA and lateral views of the chest. COMPARISON: 07/06/2018 FINDINGS: The lungs are clear and expanded. There is no demonstrated pleural abnormality. Normal size heart. Normal mediastinum and campbell. Normal visualized pulmonary arteries. Normal visualized aortic arch and descending thoracic aorta. Normal visualized thoracic spine. Normal visualized ribs, clavicles, and shoulders. There is no demonstrated abnormality of the visualized soft tissue structures of the upper abdomen. RAD/Chest PA and Lateral IMPRESSION: Normal x-ray examination of the chest. Electronically Signed: James Varner DO at 11:56 EDT Tel , Service support ,
== END | disposition home or self-care (01) ==
LOC: RAD 12:08
PROVIDERS: Family Provider Family Medicine Geriatric Medicine; PCP Family Medicine Geriatric Medicine; Referring Provider Family Medicine Geriatric Medicine; Visit Provider Family Medicine Geriatric Medicine
DX: R06.02 Shortness of breath (principal)
CPT/HCPCS: 71046

== ENCOUNTER → 2019-04-27 | Outpatient (CLI) | payer MEDICARE, SELFPAY ==
[2019-03-09 11:28] VITALS: BMI 35.4
--- NOTE | 2019-04-27 09:59 | BI_ITS ---
MAMMOGRAPHY - BILATERAL SCREENING REASON FOR EXAM: Female, 73 years old. Routine annual screening examination. PERTINENT HISTORY: Non-contributory. Remote left stereotactic breast biopsy breast aspiration. TECHNIQUE: Digital bilateral breast anastacio (3D mammographic acquisition) in the CC and MLO projections. 2-D mediolateral oblique (MLO) and craniocaudad (CC) views of both breasts were obtained. CAD: Full Field Digital Mammography with Computer Added Detection was performed. COMPARISON: Comparison is made with prior study dated March 28, 2017 and March 23, 2016. FINDINGS: Breast Composition: The breasts are almost entirely fatty. There are no dominant masses or suspicious calcifications. Scattered benign appearing calcifications. No other significant abnormalities are identified. There has been no significant change since the prior study. BI/SCREEN MAMM (CAD) W/ANASTACIO BILAT IMPRESSION: Stable bilateral screening mammogram. Yearly follow-up mammogram recommended. (A) ASSESSMENT CATEGORY: BIRADS Category 2: Benign. A letter regarding these results will be sent to the patient by the facility within 30 days. Approximately 10% of breast cancers are not detected by mammography. A normal mammogram should not delay biopsy of a clinically suspicious abnormality. [id number] Electronically Signed: Prasanth Turner, at 13:32 EDT , Service support ,
--- NOTE | 2019-04-27 14:48 | PFTCOMP_ITS ---
COMPLETE PULMONARY FUNCTION TEST INTERPRETATION Brief HPI: Patient is a 73 year old female, currently under the care of Dr. Rosenbaum, who presents to [facility] for complete pulmonary function tests secondary to diagnosis of COPD. Respiratory therapist reports good effort and reproducible results. Interpretation: Forced expiration spirometry shows no large airways obstructive ventilatory defect with an FEV1 of 71% predicted. There is no significant bronchodilator response by strict ATS criteria. Spirograms are of good quality and plateau slowly, indicating slowly emptying areas of the lungs. The respiratory flow volume loop shows decreased expiratory flow rates at all lung volumes consistent with airway obstruction. Lung volumes by body plethysmography show a decreased total lung capacity at 3.39 L, 77% predicted. All other lung volumes are reduced symmetrically. Diffusion capacity by carbon monoxide is decreased at 61% predicted. The airway resistance is normal. No previous pulmonary function tests were available for review. Impression: Mild restrictive ventilatory defect with a symmetric reduction diffusion capacity.
== END | disposition home or self-care (01) ==
PROVIDERS: Family Provider Family Medicine Geriatric Medicine; PCP Family Medicine Geriatric Medicine; Referring Provider Family Medicine Geriatric Medicine; Visit Provider Family Medicine Geriatric Medicine
DX: R06.02 Shortness of breath (principal); Z12.31 Encounter for screening mammogram for malignant neoplasm of breast
CPT/HCPCS: 77063; 77067; 94060; 94726; 94729

== ENCOUNTER → 2019-09-28 | Outpatient (CLI) | payer MEDICARE, SELFPAY ==
[2019-09-19 11:17] VITALS: BMI 36.3
[2019-09-28 12:21] LABS: Absolute Lymphocyte Count 3.15 X10^3/uL (0.83-4.51); Absolute Neutrophil Count 3.7 X10^3/uL (2.0-7.7); Basophil# 0.07 X10^3/uL; Basophil% 0.9 % (0-1); Eosinophil# 0.21 X10^3/uL; Eosinophils% 2.7 % (0-5); Hematocrit 44.9 % (37-47); Hemoglobin 14.3 g/dL (12.0-15.0); Lymphocyte # 3.15 X10^3/ul (4.0); Lymphocyte % 40.2 % (19-41); Mean Corp Hgb Conc 31.8 g/dL (32-36); Mean Corpuscular Hgb 29.5 pg (27.0-32.0); Mean Corpuscular Volume 92.8 fL (81-99); Mean Platelet Vol. 11.1 fl (6.2-12.0); Monocyte# 0.69 X10^3/uL; Monocyte% 8.8 % (0-10); NRBC Flagged by Analyzer 0 % (0-5); Neutrophil # 3.66 X10^3/uL (2.7-7.7); Neutrophil % 46.6 % (47-70); Platelet Count 249 K/mm3 (150-450); RBC Distribution Width CV 13.3 % (11.6-14.6); RBC Distribution Width SD 44.6 fl (35.1-43.9); Red Blood Count 4.84 M/mm3 (4.2-5.4); White Blood Count 7.8 K/mm3 (4.4-11.0)
[2019-09-28 12:37] LABS: AST(SGOT) 21 U/L (15-37); Alanine Aminotransfer ALT/SGPT 32 U/L (13-56); Albumin, Serum 3.5 g/dL (3.2-5.0); Alkaline Phosphatase 111 U/L (45-117); Anion Gap 6 (5-15); BUN 12 mg/dL (7-18); BUN/Creat Ratio 14.6 RATIO (10-20); Bilirubin, Direct 0.11 mg/dL (0.00-0.30); Calcium,Total 8.7 mg/dL (8.5-10.1); Chloride 107 mmol/L (98-107); Cholesterol 191 mg/dL (200); Creatinine, Serum 0.82 mg/dL (0.55-1.02); EST Glomerular Filtration Rate 73 mL/min (>60); Est Glom Filt Rate - Afr Amer 88 mL/min (>60); Globulin 3.1 g/dL (2.2-4.2); Glucose 101 mg/dL (74-106); High Density Lipoprotein 60 mg/dL; Protein, Total 6.6 g/dL (6.4-8.2); Sodium Level 140 mmol/L (136-145); Thyroid Stim Hormone (TSH) 1.17 uIU/mL (0.358-3.74); Triglycerides 201 mg/dL; Very Low Density Lipoprotein 40 mg/dL (5-40)
== END | disposition home or self-care (01) ==
LOC: POLAB3 09:44
PROVIDERS: Internal Medicine Cardiovascular Disease; Family Provider Family Medicine Geriatric Medicine; PCP Family Medicine Geriatric Medicine; Visit Provider Family Medicine Geriatric Medicine
DX: E55.9 Vitamin D deficiency, unspecified (principal); I10 Essential (primary) hypertension; E78.00 Pure hypercholesterolemia, unspecified
CPT/HCPCS: 80048; 80061; 80076; 82306; 84443; 85025

== ENCOUNTER → 2020-02-26 | Outpatient (CLI) | payer MEDICARE, SELFPAY ==
[2019-09-19 11:17] VITALS: BMI 36.3
[2020-02-26 16:45] LABS: Absolute Lymphocyte Count 2.19 X10^3/uL (0.83-4.51); Absolute Neutrophil Count 7.3 X10^3/uL (2.0-7.7); Basophil# 0.05 X10^3/uL; Basophil% 0.5 % (0-1); Eosinophil# 0.17 X10^3/uL; Eosinophils% 1.6 % (0-5); Hemoglobin 14.2 g/dL (12.0-15.0); Lymphocyte # 2.19 X10^3/ul (4.0); Lymphocyte % 20.5 % (19-41); Mean Corp Hgb Conc 32.3 g/dL (32-36); Mean Corpuscular Hgb 29.2 pg (27.0-32.0); Mean Corpuscular Volume 90.3 fL (81-99); Mean Platelet Vol. 10.9 fl (6.2-12.0); Monocyte# 0.94 X10^3/uL; Monocyte% 8.8 % (0-10); NRBC Flagged by Analyzer 0 % (0-5); Neutrophil # 7.26 X10^3/uL (2.7-7.7); Neutrophil % 67.9 % (47-70); Platelet Count 283 K/mm3 (150-450); RBC Distribution Width CV 13.4 % (11.6-14.6); Red Blood Count 4.87 M/mm3 (4.2-5.4); White Blood Count 10.7 K/mm3 (4.4-11.0)
[2020-02-26 16:52] LABS: Erythrocyte Sedimentation Rate 12 mm/hr (0-30)
[2020-02-26 17:41] LABS: Anion Gap 7 (5-15); BUN 11 mg/dL (7-18); BUN/Creat Ratio 12.2 RATIO (10-20); Calcium,Total 9.3 mg/dL (8.5-10.1); Chloride 103 mmol/L (98-107); EST Glomerular Filtration Rate 65 mL/min (>60); Est Glom Filt Rate - Afr Amer 79 mL/min (>60); Glucose 109 mg/dL (74-106); Potassium 4.2 mmol/L (3.5-5.1); Sodium Level 137 mmol/L (136-145)
--- NOTE | 2020-02-26 17:59 | CT_ITS ---
STUDY: CT BRAIN WITHOUT CONTRAST REASON FOR EXAM: Female, 74 years old. Left periorbital cellulitis. RADIATION DOSAGE (If Supplied By Facility): CTDIvol = ( 44.99 ) mGy, DLP = ( 745.49 ) mGycm TECHNIQUE: Transaxial CT imaging of the brain was performed without administration of intravenous contrast material. Individualized dose optimization techniques were used for this CT. COMPARISON: July 25, 2018. FINDINGS: Is mild prominence of the soft tissues left periorbital region. The orbit is intact. Normal calvarium. Normal size ventricles and extra-axial spaces for the patient''s age. Normal white matter tracts of the cerebral hemispheres. Normal basal ganglia and thalami. Normal brainstem. Normal cerebellum. There is no intracranial hemorrhage. There are no findings of an acute ischemic infarction. Normal visualized paranasal sinuses. CT/Brain/Head without Contrast IMPRESSION: 1. Mild soft tissue prominence over the left maxilla and preorbital soft tissues. There is no evidence of orbital abnormality. 2. No acute intracranial or calvarial abnormality or other major interval change. Electronically Signed: Jhonathan Link DO at 18:19 EDT Tel [phone], Service support ,
== END | disposition home or self-care (01) ==
PROVIDERS: PCP Family Medicine Geriatric Medicine; Visit Provider Family Medicine Geriatric Medicine
DX: L03.213 Periorbital cellulitis (principal)
CPT/HCPCS: 36415; 70450; 80048; 85025; 85652; 86140

== ENCOUNTER → 2020-04-01 | Outpatient (CLI) | payer MEDICARE, SELFPAY ==
[2019-09-19 11:17] VITALS: BMI 36.3
[2020-04-01 12:19] LABS: Absolute Lymphocyte Count 2.66 X10^3/uL (0.83-4.51); Absolute Neutrophil Count 2.4 X10^3/uL (2.0-7.7); Basophil# 0.05 X10^3/uL; Basophil% 0.8 % (0-1); Eosinophil# 0.18 X10^3/uL; Hematocrit 40.8 % (37-47); Hemoglobin 13.3 g/dL (12.0-15.0); Lymphocyte # 2.66 X10^3/ul (4.0); Lymphocyte % 43.9 % (19-41); Mean Corp Hgb Conc 32.6 g/dL (32-36); Mean Corpuscular Hgb 30.7 pg (27.0-32.0); Mean Corpuscular Volume 94.2 fL (81-99); Mean Platelet Vol. 10.3 fl (6.2-12.0); Monocyte# 0.66 X10^3/uL; Monocyte% 10.9 % (0-10); NRBC Flagged by Analyzer 0 % (0-5); Neutrophil % 39.6 % (47-70); Platelet Count 248 K/mm3 (150-450); RBC Distribution Width CV 13.7 % (11.6-14.6); RBC Distribution Width SD 47.1 fl (35.1-43.9); Red Blood Count 4.33 M/mm3 (4.2-5.4); White Blood Count 6.1 K/mm3 (4.4-11.0)
[2020-04-01 12:47] LABS: Vitamin D,25 Hydroxy 32.5 ng/mL
[2020-04-01 12:53] LABS: AST(SGOT) 31 U/L (15-37); Alanine Aminotransfer ALT/SGPT 53 U/L (13-56); Albumin, Serum 3.1 g/dL (3.2-5.0); Alkaline Phosphatase 103 U/L (45-117); Anion Gap 5 (5-15); BUN 21 mg/dL (7-18); BUN/Creat Ratio 26.9 RATIO (10-20); Calcium,Total 8.9 mg/dL (8.5-10.1); Chloride 108 mmol/L (98-107); Cholesterol 177 mg/dL (200); Creatinine, Serum 0.78 mg/dL (0.55-1.02); EST Glomerular Filtration Rate 77 mL/min (>60); Est Glom Filt Rate - Afr Amer 93 mL/min (>60); Globulin 3.2 g/dL (2.2-4.2); Glucose 142 mg/dL (74-106); High Density Lipoprotein 51 mg/dL; Potassium 3.7 mmol/L (3.5-5.1); Protein, Total 6.3 g/dL (6.4-8.2); Sodium Level 141 mmol/L (136-145); Thyroid Stim Hormone (TSH) 0.44 uIU/mL (0.358-3.74); Triglycerides 282 mg/dL; Very Low Density Lipoprotein 56 mg/dL (5-40)
== END | disposition home or self-care (01) ==
LOC: LAB 11:30
PROVIDERS: PCP Family Medicine Geriatric Medicine; Referring Provider Family Medicine Geriatric Medicine; Visit Provider Family Medicine Geriatric Medicine
DX: E55.9 Vitamin D deficiency, unspecified (principal); I10 Essential (primary) hypertension; E78.5 Hyperlipidemia, unspecified
CPT/HCPCS: 36415; 80053; 80061; 82306; 84443; 85025

== ENCOUNTER → 2020-10-01 11:11 | Outpatient (CLI) | payer MEDICARE, SELFPAY ==
[2020-04-25 14:14] VITALS: BMI 34.4
[2020-10-01 12:42] LABS: Absolute Lymphocyte Count 2.99 X10^3/uL (0.83-4.51); Absolute Neutrophil Count 3.8 X10^3/uL (2.0-7.7); Basophil# 0.04 X10^3/uL; Basophil% 0.5 % (0-1); Eosinophil# 0.17 X10^3/uL; Eosinophils% 2.2 % (0-5); Hemoglobin 13.8 g/dL (12.0-15.0); Lymphocyte # 2.99 X10^3/ul (4.0); Lymphocyte % 39.1 % (19-41); Mean Corp Hgb Conc 32.9 g/dL (32-36); Mean Corpuscular Hgb 30.7 pg (27.0-32.0); Mean Corpuscular Volume 93.3 fL (81-99); Mean Platelet Vol. 10.7 fl (6.2-12.0); Monocyte# 0.65 X10^3/uL; Monocyte% 8.5 % (0-10); NRBC Flagged by Analyzer 0 % (0-5); Neutrophil # 3.76 X10^3/uL (2.7-7.7); Neutrophil % 49.2 % (47-70); Platelet Count 281 K/mm3 (150-450); RBC Distribution Width SD 44.6 fl (35.1-43.9); White Blood Count 7.7 K/mm3 (4.4-11.0)
[2020-10-01 13:24] LABS: AST(SGOT) 22 U/L (15-37); Alanine Aminotransfer ALT/SGPT 40 U/L (13-56); Albumin, Serum 3.4 g/dL (3.2-5.0); Alkaline Phosphatase 102 U/L (45-117); Anion Gap 8 (5-15); BUN 16 mg/dL (7-18); BUN/Creat Ratio 20.4 RATIO (10-20); Chloride 110 mmol/L (98-107); Cholesterol 173 mg/dL (200); Creatinine, Serum 0.78 mg/dL (0.55-1.02); EST Glomerular Filtration Rate 77 mL/min (>60); Est Glom Filt Rate - Afr Amer 93 mL/min (>60); Globulin 3.3 g/dL (2.2-4.2); Glucose 144 mg/dL (74-106); High Density Lipoprotein 68 mg/dL; Potassium 3.6 mmol/L (3.5-5.1); Protein, Total 6.7 g/dL (6.4-8.2); Sodium Level 141 mmol/L (136-145); Thyroid Stim Hormone (TSH) 0.43 uIU/mL (0.358-3.74); Triglycerides 151 mg/dL; Very Low Density Lipoprotein 30 mg/dL (5-40)
[2020-10-01 18:56] LABS: Vitamin D,25 Hydroxy 32.5 ng/mL
== END ==
PROVIDERS: PCP Family Medicine Geriatric Medicine; Visit Provider Family Medicine Geriatric Medicine
DX: E55.9 Vitamin D deficiency, unspecified (principal); E78.5 Hyperlipidemia, unspecified; I10 Essential (primary) hypertension
CPT/HCPCS: 36415; 80053; 80061; 82306; 84443; 85025

== ENCOUNTER → 2020-12-08 17:27 | Outpatient (CLI) | payer MEDICARE, SELFPAY ==
[2020-04-25 14:14] VITALS: BMI 34.4
== END ==
PROVIDERS: PCP Family Medicine Geriatric Medicine; Referring Provider Family Medicine Geriatric Medicine; Visit Provider Family Medicine Geriatric Medicine
DX: U07.1 COVID-19 (principal)
CPT/HCPCS: 87633; 87635; C9803; U0003

== ENCOUNTER 2021-02-05 12:50 | Outpatient (RCR) | payer MEDICARE, SELFPAY ==
[2020-04-25 14:14] VITALS: BMI 34.4
[2021-02-05] MEDS: COVID-19 VACC, MRNA(PFIZER)/PF 30 MCG/0.3 ML SYRINGE IM (15:26)
[2021-02-26] MEDS: COVID-19 VACC, MRNA(PFIZER)/PF 30 MCG/0.3 ML SYRINGE IM (15:04)
== END 2021-05-05 23:59 ==
LOC: IMMUN 12:50
PROVIDERS: PCP Family Medicine Geriatric Medicine; Referring Provider Family Medicine; Visit Provider Family Medicine
DX: Z23 Encounter for immunization (principal)
CPT/HCPCS: 0001A; 0002A; 91300

== ENCOUNTER → 2021-04-02 11:48 | Outpatient (CLI) | payer MEDICARE, SELFPAY ==
[2020-04-25 14:14] VITALS: BMI 34.4
[2021-04-02 12:15] LABS: Absolute Lymphocyte Count 2.63 X10^3/uL (0.83-4.51); Basophil# 0.06 X10^3/uL; Basophil% 0.8 % (0-1); Eosinophil# 0.27 X10^3/uL; Eosinophils% 3.5 % (0-5); Hematocrit 43.4 % (37-47); Hemoglobin 14.1 g/dL (12.0-15.0); Lymphocyte # 2.63 X10^3/ul (0.83-4.51); Lymphocyte % 34.1 % (19-41); Mean Corp Hgb Conc 32.5 g/dL (32-36); Mean Corpuscular Hgb 29.6 pg (27.0-32.0); Mean Platelet Vol. 10.5 fl (6.2-12.0); Monocyte# 0.72 X10^3/uL; Monocyte% 9.3 % (0-10); NRBC Flagged by Analyzer 0 % (0-5); Neutrophil # 3.96 X10^3/uL (2.7-7.7); Neutrophil % 51.4 % (47-70); Platelet Count 273 K/mm3 (150-450); RBC Distribution Width CV 13.1 % (11.6-14.6); RBC Distribution Width SD 43.4 fl (35.1-43.9); Red Blood Count 4.77 M/mm3 (4.2-5.4); White Blood Count 7.7 K/mm3 (4.4-11.0)
[2021-04-02 12:32] LABS: Vitamin D,25 Hydroxy 23.5 ng/mL
[2021-04-02 12:44] LABS: ALB/GLOB Ratio 1.2 RATIO (0.9-2.4); AST(SGOT) 22 U/L (15-37); Alanine Aminotransfer ALT/SGPT 37 U/L (13-56); Albumin, Serum 3.5 g/dL (3.2-5.0); Alkaline Phosphatase 119 U/L (45-117); Anion Gap 8 (5-15); BUN 16 mg/dL (7-18); BUN/Creat Ratio 17.4 RATIO (10-20); Calcium,Total 8.9 mg/dL (8.5-10.1); Chloride 103 mmol/L (98-107); Cholesterol 213 mg/dL (200); Creatinine, Serum 0.92 mg/dL (0.55-1.02); EST Glomerular Filtration Rate 64 mL/min (>60); Est Glom Filt Rate - Afr Amer 77 mL/min (>60); Globulin 2.8 g/dL (2.2-4.2); Glucose 147 mg/dL (74-106); High Density Lipoprotein 68 mg/dL; Potassium 4.5 mmol/L (3.5-5.1); Protein, Total 6.3 g/dL (6.4-8.2); Sodium Level 138 mmol/L (136-145); Thyroid Stim Hormone (TSH) 2.15 uIU/mL (0.358-3.74); Triglycerides 229 mg/dL; Very Low Density Lipoprotein 46 mg/dL (5-40)
== END ==
PROVIDERS: PCP Family Medicine Geriatric Medicine; Visit Provider Family Medicine Geriatric Medicine
DX: E55.9 Vitamin D deficiency, unspecified (principal); E78.5 Hyperlipidemia, unspecified; I10 Essential (primary) hypertension
CPT/HCPCS: 36415; 80053; 80061; 82306; 84443; 85025

== ENCOUNTER → 2021-06-10 13:27 | Outpatient (CLI) | payer MEDICARE, SELFPAY ==
[2020-04-25 14:14] VITALS: BMI 34.4
--- NOTE | 2021-06-10 13:29 | BI_ITS ---
MAMMOGRAPHY - BILATERAL SCREENING REASON FOR EXAM: Female, 75 years old. Routine annual screening examination. PERTINENT HISTORY: Non-contributory. Prior left stereotactic breast biopsy. TECHNIQUE: Digital bilateral breast anastacio (3D mammographic acquisition) in the CC and MLO projections. 2-D mediolateral oblique (MLO) and craniocaudad (CC) views of both breasts were obtained. CAD: Full Field Digital Mammography with Computer Added Detection was performed. COMPARISON: Comparison is made with prior study of 04/27/2019 and 03/28/2017. FINDINGS: Breast Composition: The breasts are almost entirely fatty. There are no dominant masses or suspicious calcifications. Stable benign-appearing bilateral axillary lymph nodes. No other significant abnormalities are identified. There has been no significant change since the prior study. BI/SCRN MAMM (CAD)W/ANASTACIO BILAT IMPRESSION: Stable bilateral screening mammogram. Yearly follow-up mammogram recommended. (A) ASSESSMENT CATEGORY: BIRADS Category 2: Benign. A letter regarding these results will be sent to the patient by the facility within 30 days. Approximately 10% of breast cancers are not detected by mammography. A normal mammogram should not delay biopsy of a clinically suspicious abnormality. [id number] Electronically Signed: Prasanth Turner MD at 14:37 EDT , Service support ,
== END ==
PROVIDERS: PCP Family Medicine Geriatric Medicine; Referring Provider Family Medicine Geriatric Medicine; Visit Provider Family Medicine Geriatric Medicine
DX: Z12.31 Encounter for screening mammogram for malignant neoplasm of breast (principal)
CPT/HCPCS: 77063; 77067

== ENCOUNTER → 2021-10-12 16:54 | Outpatient (CLI) | payer MEDICARE, SELFPAY ==
[2021-10-12 17:44] LABS: Absolute Lymphocyte Count 2.38 X10^3/uL (0.83-4.51); Absolute Neutrophil Count 4.5 X10^3/uL (2.0-7.7); Basophil# 0.04 X10^3/uL; Basophil% 0.5 % (0-1); Eosinophil# 0.12 X10^3/uL; Eosinophils% 1.6 % (0-5); Hematocrit 40.3 % (37-47); Hemoglobin 13.5 g/dL (12.0-15.0); Lymphocyte # 2.38 X10^3/ul (0.83-4.51); Lymphocyte % 31.1 % (19-41); Mean Corp Hgb Conc 33.5 g/dL (32-36); Mean Corpuscular Volume 92.4 fL (81-99); Mean Platelet Vol. 10.3 fl (6.2-12.0); Monocyte# 0.57 X10^3/uL; Monocyte% 7.4 % (0-10); NRBC Flagged by Analyzer 0 % (0-5); Neutrophil # 4.51 X10^3/uL (2.7-7.7); Neutrophil % 58.9 % (47-70); Platelet Count 287 K/mm3 (150-450); RBC Distribution Width CV 12.9 % (11.6-14.6); RBC Distribution Width SD 43.9 fl (35.1-43.9); Red Blood Count 4.36 M/mm3 (4.2-5.4); White Blood Count 7.7 K/mm3 (4.4-11.0)
[2021-10-12 18:54] LABS: Vitamin D,25 Hydroxy 24.9 ng/mL
[2021-10-12 19:02] LABS: ALB/GLOB Ratio 0.9 RATIO (0.9-2.4); AST(SGOT) 20 U/L (15-37); Alanine Aminotransfer ALT/SGPT 27 U/L (13-56); Albumin, Serum 3.3 g/dL (3.2-5.0); Alkaline Phosphatase 101 U/L (45-117); Anion Gap 7 (5-15); BUN 17 mg/dL (7-18); Calcium,Total 8.9 mg/dL (8.5-10.1); Chloride 106 mmol/L (98-107); Cholesterol 160 mg/dL (200); Creatinine, Serum 0.77 mg/dL (0.55-1.02); EST Glomerular Filtration Rate 77 mL/min (>60); Est Glom Filt Rate - Afr Amer 94 mL/min (>60); Globulin 3.5 g/dL (2.2-4.2); Glucose 91 mg/dL (74-106); High Density Lipoprotein 53 mg/dL; Potassium 3.6 mmol/L (3.5-5.1); Protein, Total 6.8 g/dL (6.4-8.2); Sodium Level 138 mmol/L (136-145); Thyroid Stim Hormone (TSH) 0.82 uIU/mL (0.358-3.74); Triglycerides 215 mg/dL; Very Low Density Lipoprotein 43 mg/dL (5-40)
== END ==
PROVIDERS: PCP Family Medicine Geriatric Medicine; Visit Provider Family Medicine Geriatric Medicine
DX: E55.9 Vitamin D deficiency, unspecified (principal); E78.5 Hyperlipidemia, unspecified; I10 Essential (primary) hypertension
CPT/HCPCS: 36415; 80053; 80061; 82306; 84443; 85025

== ENCOUNTER → 2021-11-17 16:18 | Outpatient (CLI) | payer MEDICARE, SELFPAY | PROVIDERS: PCP Family Medicine Geriatric Medicine; Referring Provider Family Medicine Geriatric Medicine; Visit Provider Family Medicine Geriatric Medicine | DX: R68.83 Chills (without fever) (principal) | CPT/HCPCS: 87635; 87804; 87807; C9803; U0005; U0003 ==

== ENCOUNTER 2021-12-07 15:02 | Outpatient (CLI) | payer MEDICARE, SELFPAY ==
--- NOTE | 2021-12-07 15:15 | VDLE_ITS ---
Reason For Study: Edema RIGHT LEFT GSV is normal. CFV is compressible, spontaneous, phasic, CFV is compressible, spontaneous, phasic, competent, and demonstrates normal competent and demonstrates normal augmentation. augmentation. FV is compressible, spontaneous, phasic, competent and demonstrates normal augmentation. POP V is compressible, spontaneous, phasic, competent and demonstrates normal augmentation. T/P Trunk is compressible. PTV is compressible. RT PerV is compressible. Procedure This is a venous duplex using B-mode, color flow and spectral Doppler. Exam performed in department. A preliminary report was called and/or faxed to [facility]i. VL/Venous Duplex US, Unilateral Interpretation Summary Deep veins of the right lower extremity are patent and compressible segmentally . There is no evidence of right lower extremity deep vein thrombosis. Valvular competence saurabh ears intact within the proximal deep venous system on the right . The right great saphenous vein a ppears patent and compressible segmentally. Ordering Physician: Neno Rosenbaum Referring Physician: Neno Rosenbaum Chi Performed By: Liliana Alvarenga RVT
--- NOTE | 2021-12-07 15:27 | RAD_ITS ---
STUDY: X-RAY - LUMBAR SPINE REASON FOR EXAM: Female, 76 years old. Technologist Notes SCIATICA PAIN THAT HAS RADIATED DOWN THROUGH ANKLE X 1 WK LOW BACK PAIN TECHNIQUE: XR Spine Lumbar 2 or 3 Views COMPARISON: None FINDINGS: Normal lumbar lordosis. There is no substantial scoliosis. There is a normal alignment of the vertebrae. There are calcified phleboliths in the pelvis. This makes differentiation with distal ureteral stones difficult. Diffuse vacuum disc phenomenon in the lumbar spine. There is multilevel endplate spondylosis of the lumbar vertebrae. There is multi-level degenerative disc disease with multi-level disc space narrowing. There are atherosclerotic vascular calcifications. The soft tissue structures are unremarkable. RAD/Lumbar Spine 2 or 3 Views IMPRESSION: Degenerative changes of the spine, as detailed above. Electronically Signed: Walter Pablo MD at 15:46 EST , Service support ,
--- NOTE | 2021-12-07 15:28 | RAD_ITS ---
EXAM: XR RIGHT ANKLE, 2 VIEWS CLINICAL INDICATION: ANKLE PAIN Technologist Notes SCIATICA PAIN THAT HAS RADIATED DOWN THROUGH ANKLE X 1 WK TECHNIQUE: Frontal and lateral views of the right ankle. This report was created using [employer] report generation technology. COMPARISON: None. FINDINGS: BONES/JOINTS: There is a calcaneal spur. No acute fracture. No subluxation. Normal alignment. Preservation of the joint space. No sclerotic or destructive changes observed. SOFT TISSUES: Unremarkable. No soft tissue swelling or gas. No radiopaque foreign body. RAD/Ankle 2 Views IMPRESSION: No acute findings in the right ankle. Electronically Signed: Walter Pablo MD at 15:47 EST , Service support ,
== END 2021-12-07 23:59 | disposition short-term general hospital (02) ==
PROVIDERS: PCP Family Medicine Geriatric Medicine; Referring Provider Family Medicine Geriatric Medicine; Visit Provider Family Medicine Geriatric Medicine
DX: M47.816 Spondylosis without myelopathy or radiculopathy, lumbar region (principal); M51.36 Other intervertebral disc degeneration, lumbar region; M48.061 Spinal stenosis, lumbar region without neurogenic claudication; M25.571 Pain in right ankle and joints of right foot; R60.0 Localized edema
CPT/HCPCS: 72100; 73600; 93971

== ENCOUNTER 2021-12-08 12:39 | Outpatient (CLI) | payer MEDICARE, SELFPAY | END 2021-12-08 23:59 | disposition short-term general hospital (02) | LOC: PSN 12:40 | PROVIDERS: PCP Family Medicine Geriatric Medicine; Referring Provider Family Medicine Geriatric Medicine; Visit Provider Family Medicine Geriatric Medicine | DX: R68.83 Chills (without fever) (principal) | CPT/HCPCS: 87635; 87804; 87807; C9803; U0003; U0005 ==

== ENCOUNTER → 2022-04-12 | Outpatient (CLI) | payer MEDICARE, SELFPAY ==
[2022-04-12 12:33] LABS: Absolute Lymphocyte Count 2.05 X10^3/uL (0.83-4.51); Absolute Neutrophil Count 3.4 X10^3/uL (2.0-7.7); Basophil# 0.04 X10^3/uL; Basophil% 0.6 % (0-1); Eosinophil# 0.14 X10^3/uL; Eosinophils% 2.2 % (0-5); Hematocrit 43.4 % (37-47); Lymphocyte # 2.05 X10^3/ul (0.83-4.51); Lymphocyte % 31.8 % (19-41); Mean Corp Hgb Conc 32.3 g/dL (32-36); Mean Corpuscular Hgb 29.9 pg (27.0-32.0); Mean Corpuscular Volume 92.7 fL (81-99); Mean Platelet Vol. 10.5 fl (6.2-12.0); Monocyte# 0.78 X10^3/uL; Monocyte% 12.1 % (0-10); NRBC Flagged by Analyzer 0 % (0-5); Neutrophil % 52.8 % (47-70); Platelet Count 302 K/mm3 (150-450); RBC Distribution Width CV 13.8 % (11.6-14.6); RBC Distribution Width SD 46.9 fl (35.1-43.9); Red Blood Count 4.68 M/mm3 (4.2-5.4); White Blood Count 6.4 K/mm3 (4.4-11.0)
[2022-04-12 12:48] LABS: Vitamin D,25 Hydroxy 20.8 ng/mL
[2022-04-12 13:00] LABS: Albumin, Serum 3.4 g/dL (3.2-5.0); BUN 20 mg/dL (7-18); BUN/Creat Ratio 25.5 RATIO (10-20); Creatinine, Serum 0.78 mg/dL (0.55-1.02); EST Glomerular Filtration Rate 76 mL/min (>60); Est Glom Filt Rate - Afr Amer 92 mL/min (>60); Globulin 3.3 g/dL (2.2-4.2); Glucose 77 mg/dL (74-106); Protein, Total 6.7 g/dL (6.4-8.2)
[2022-04-12 13:01] LABS: AST(SGOT) 18 U/L (15-37); Alanine Aminotransfer ALT/SGPT 29 U/L (13-56); Alkaline Phosphatase 104 U/L (45-117); Anion Gap 5 (5-15); Chloride 106 mmol/L (98-107); Cholesterol 177 mg/dL (200); High Density Lipoprotein 65 mg/dL; Potassium 4.3 mmol/L (3.5-5.1); Sodium Level 138 mmol/L (136-145); Thyroid Stim Hormone (TSH) 0.26 uIU/mL (0.358-3.74); Triglycerides 145 mg/dL; Very Low Density Lipoprotein 29 mg/dL (5-40)
== END | disposition home or self-care (01) ==
LOC: POLAB3 09:23
PROVIDERS: PCP Family Medicine Geriatric Medicine; Visit Provider Family Medicine Geriatric Medicine
DX: E55.9 Vitamin D deficiency, unspecified (principal); E78.5 Hyperlipidemia, unspecified; I10 Essential (primary) hypertension
CPT/HCPCS: 36415; 80053; 80061; 82306; 84443; 85025

== ENCOUNTER 2022-06-12 14:03 | Emergency (ER) | payer MEDICARE, SELFPAY ==
[2022-06-12 14:03] VITALS: BP 146/78; PULSE 59; RESP 16; TEMP 36.4; O2SAT 98; BMI 34.4
[2022-06-12 14:20] VITALS: BP 112/72; PULSE 59; RESP 19; O2SAT 97
[2022-06-12 14:25] VITALS: O2SAT 97
[2022-06-12 14:28] VITALS: O2SAT 97
--- NOTE | 2022-06-12 14:28 | EKG12_ITS ---
Test Reason : DIZZINESS,SOB Blood Pressure : / mmHG Vent. Rate : 054 BPM Atrial Rate : 054 BPM P-R Int : 158 ms QRS Dur : 064 ms QT Int : 434 ms P-R-T Axes : 023 001 030 degrees QTc Int : 411 ms Sinus bradycardia Minimal voltage criteria for LVH, may be normal variant ( R in aVL ) Borderline ECG Confirmed by PETERSON MALLOY, KEANU ([id number]), newspaper photo editor PABLO TABARES ([id number]) on 06/14/2022 11:03:03 AM Referred By: HEMANTH Confirmed By:KEANU WINKLER MD
--- NOTE | 2022-06-12 14:29 | ED.VIS.DYS ---
HPI History of Present Illness Chief Complaint: Shortness of Breath Narrative Narrative: 76-year-old female presenting with fatigue, shortness of breath. She states is been going on for about 3 days. She states she is so tired she can barely keep her eyes open. She denies nausea or vomiting. She does admit to some chills. She does not have body aches. Patient states has been using her rescue inhaler without relief. Periodically she states that she has a an electrical impulse that goes across her chest. She does not describe sharp pleuritic pain or chest pressure. Patient states that she has been drinking a lot of fluids and making urine. He denies urinary complaints. [facility] Medical History NAKIA (acute kidney injury) Asthma Chest pain Diastolic dysfunction Essential hypertension Generalized osteoarthritis History of TIA (transient ischemic attack) and stroke Hypoglycemia Hypothyroidism Mini stroke Mixed hyperlipidemia Obesity (BMI 30-39.9) Osteoarthritis Plantar fasciitis possible PR SOB (shortness of breath) Speech disturbance TIA (transient ischemic attack) Home Medications aspirin 81 mg tablet,delayed release 81 mg PO QDAY heart health 06/29/18 [History Last Taken 07/25/18] atorvastatin 40 mg tablet 40 mg PO DAILY cholesterol 06/29/18 [History Last Taken 07/24/18] citalopram 20 mg tablet 20 mg PO QDAY depression 06/29/18 [History Last Taken 07/24/18] metoprolol succinate 25 mg tablet,extended release 24 hr 25 mg PO BID heart 06/29/18 [History Last Taken 07/25/18] losartan 50 mg tablet 50 mg PO BID heart 07/25/18 [History Last Taken 07/25/18] levothyroxine 75 mcg tablet 75 mcg PO DAILY 03/09/19 [History Last Taken Unknown] fluticasone 250 mcg-salmeterol 50 mcg/dose blistr powdr for inhalation (Advair Diskus) 1 inh inhalation BID 04/25/20 [History Last Taken Unknown] ropinirole 0.25 mg tablet 0.25 mg PO QHS 04/25/20 [History Last Taken Unknown] amlodipine 2.5 mg tablet 2.5 mg PO DAILY #90 tabs 09/15/20 [Rx Last Taken Unknown] Allergy/AdvReac Type Severity Reaction Status Date / Time sulfadimethoxine Allergy Mild unknown Verified 06/12/22 14:05 Family History Father Cancer CVA (cerebral vascular accident) Hypertension CAD (coronary artery disease) Brother Cancer Kidney disease Mother Hypertension CAD (coronary artery disease) Kidney disease Brother Cancer Colon Surgical History H/O: hysterectomy History of hernia repair History of hysterectomy History of tonsillectomy and adenoidectomy History of tubal ligation S/P hernia repair S/P tonsillectomy Social History Smoking Status: Never smoker alcohol intake: current details: occasional EXAM Physical Exam Const Vital Signs: 06/12/22 14:03 06/12/22 14:20 06/12/22 14:25 Temperature 97.6 F L Temperature Source Temporal Pulse Rate 59 L 59 L Respiratory Rate 16 19 H Respiratory Effort Normal Non-Labored Respiratory Pattern Tachypnea Blood Pressure 146/78 H 112/72 Blood Pressure Mean 100 85 Pulse Ox 98 97 Oxygen Delivery Method Room Air Room Air Room Air 06/12/22 14:28 06/12/22 17:03 Temperature Temperature Source Pulse Rate 51 L Respiratory Rate 16 Respiratory Effort Respiratory Pattern Blood Pressure 143/70 H Blood Pressure Mean 94 Pulse Ox 97 98 Oxygen Delivery Method Room Air Room Air Positive well nourished General Appearance ED: NAD; Negative for pallor HEENT Reports moist mucous membranes atraumatic Eyes PERRL and EOMs intact bilaterally General Eye ED: Negative for pale conjunctiva or scleral icterus Resp normal respiratory effort and clear to auscultation bilaterally Auscultation: Negative for rales, rhonchi or wheezes Cardio regular rate and regular rhythm Neuro oriented x3, CN's II-XII intact bilaterally and no sensory deficits noted Sensorium / Orientation: alert Motor Exam: strength 5/5 throughout Psych mental status grossly normal Skin no wounds and skin turgor normal General Skin Exam: Negative for jaundice or pallor MDM MDM MDM Narrative Medical decision making narrative: Patient presenting with generalized fatigue, shortness of breath, chills. Her lungs are clear to auscultation. Her oxygen is 98% on room air. Respirate 16. Afebrile. She is nontoxic-appearing. She was complaining of some intermittent electrical type chest pains in her chest. I did an EKG which is sinus bradycardia without sign of ischemic change or dysrhythmia. CBC shows no leukocytosis. Hemoglobin hematocrit stable. Platelets are normal. Renal function and electrolytes within normal limits. LFTs are normal. High-sensitivity troponin is 4. D-dimer returned elevated at 0.85. High-sensitivity troponin at 2 hours is also 4. BNP slightly more elevated at 183. Chest x-ray on my interpretation is no acute cardiopulmonary process and radiologist agree. CTA is pending. Patient will be signed out to incoming ED physician for follow-up on CTA. Feel it is likely the patient will be discharged home. She is to follow-up with her PCP. Return precautions discussed. Impression: 1. Chest pain 2. Viral syndrome Lab Data Attestation: I reviewed the patient's lab results. Labs: Laboratory Results - last 24 hr 06/12/22 06/12/22 06/12/22 14:35 14:35 14:35 WBC 7.4 RBC 4.34 Hgb 13.3 Hct 39.8 MCV 91.7 MCH 30.6 MCHC 33.4 RDW Std Deviation 44.7 H RDW Coeff of Zenaida 13.2 Plt Count 213 MPV 9.5 Immature Gran % (Auto) 0.900 Neut % (Auto) 59.1 Lymph % (Auto) 27.2 [place] % (Auto) 10.8 H Eos % (Auto) 1.5 Baso % (Auto) 0.5 Absolute Neuts (auto) 4.4 Absolute Lymphs (auto) 2.02 Nucleated RBC % 0 D-Dimer Quant (PE/DVT) 0.85 H* Sodium 139 Potassium 4.3 Chloride 107 Carbon Dioxide 27.0 Anion Gap 5 BUN 20 H Creatinine 1.02 Estim Creat Clear Calc 36.51 Est GFR (MDRD) Af Amer 68 Est GFR (MDRD) Non-Af 56 L BUN/Creatinine Ratio 19.6 Glucose 85 Calcium 9.0 Total Bilirubin 0.60 AST 20 ALT 30 Alkaline Phosphatase 84 Troponin I High Sens 4 B-Natriuretic Peptide Total Protein 6.2 L Albumin 3.2 Globulin 3.0 Albumin/Globulin Ratio 1.1 06/12/22 06/12/22 14:35 16:50 WBC RBC Hgb Hct MCV MCH MCHC RDW Std Deviation RDW Coeff of Zenaida Plt Count MPV Immature Gran % (Auto) Neut % (Auto) Lymph % (Auto) [place] % (Auto) Eos % (Auto) Baso % (Auto) Absolute Neuts (auto) Absolute Lymphs (auto) Nucleated RBC % D-Dimer Quant (PE/DVT) Sodium Potassium Chloride Carbon Dioxide Anion Gap BUN Creatinine Estim Creat Clear Calc Est GFR (MDRD) Af Amer Est GFR (MDRD) Non-Af BUN/Creatinine Ratio Glucose Calcium Total Bilirubin AST ALT Alkaline Phosphatase Troponin I High Sens 4 B-Natriuretic Peptide 183.0 H Total Protein Albumin Globulin Albumin/Globulin Ratio Radiography Diagnostic Testing: Clinical Impression(s) from Imaging Studies Chest X-Ray 06/12/22 14:53 IMPRESSION: No acute radiographic abnormalities. Electronically Signed: Josh Wolfe MD at 17:21 EDT , Discharge Plan Triage Chief Complaint: Shortness of Breath Other Complaint: Asthma ED Provider: Shaheen Mooney Dx/Rx/DC Orders Instructions: ED Chest Pain, Noncardiac, ED Viral Syndrome (Adult) Prescriptions: No Action aspirin 81 mg tablet,delayed release (DR/EC) 81 mg PO QDAY atorvastatin 40 mg tablet 40 mg PO DAILY citalopram 20 mg tablet 20 mg PO QDAY metoprolol succinate 25 mg tablet extended release 24 hr 25 mg PO BID levothyroxine 75 mcg tablet 75 mcg PO DAILY fluticasone propion-salmeterol [Advair Diskus] 250-50 mcg/dose blister with device 1 inh INHALATION BID ropinirole 0.25 mg tablet 0.25 mg PO QHS Rx Instructions: administer 1-3 hours before bedtime losartan 50 MG tablet 50 mg PO BID Label Comments: amlodipine 2.5 mg tablet 2.5 mg PO DAILY Qty: 90 3RF Primary Care Provider: Neno Rosenbaum Chi Referrals: Neno Rosenbaum Chi, MD [Primary Care Provider] - Disposition Disposition: Home, Self Care
[2022-06-12 14:46] LABS: Absolute Lymphocyte Count 2.02 X10^3/uL (0.83-4.51); Absolute Neutrophil Count 4.4 X10^3/uL (2.0-7.7); Basophil# 0.04 X10^3/uL; Basophil% 0.5 % (0-1); Eosinophil# 0.11 X10^3/uL; Eosinophils% 1.5 % (0-5); Hematocrit 39.8 % (37-47); Hemoglobin 13.3 g/dL (12.0-15.0); Lymphocyte # 2.02 X10^3/ul (0.83-4.51); Lymphocyte % 27.2 % (19-41); Mean Corp Hgb Conc 33.4 g/dL (32-36); Mean Corpuscular Hgb 30.6 pg (27.0-32.0); Mean Corpuscular Volume 91.7 fL (81-99); Mean Platelet Vol. 9.5 fl (6.2-12.0); Monocyte% 10.8 % (0-10); NRBC Flagged by Analyzer 0 % (0-5); Neutrophil # 4.38 X10^3/uL (2.7-7.7); Neutrophil % 59.1 % (47-70); Platelet Count 213 K/mm3 (150-450); RBC Distribution Width CV 13.2 % (11.6-14.6); RBC Distribution Width SD 44.7 fl (35.1-43.9); Red Blood Count 4.34 M/mm3 (4.2-5.4); White Blood Count 7.4 K/mm3 (4.4-11.0)
--- NOTE | 2022-06-12 14:53 | RAD_ITS ---
INDICATION: chest pain EXAMINATION/TECHNIQUE: X-RAY - XR Chest 1 View COMPARISON: 04/03/2019. FINDINGS: The lungs are clear. Left basilar atelectasis. Tortuous and calcified thoracic aorta. The heart is not enlarged. No pleural effusion or pneumothorax. Degenerative changes of the thoracic spine. RAD/Chest 1 View (Portable) IMPRESSION: No acute radiographic abnormalities. Electronically Signed: Josh Wolfe MD at 17:21 EDT ,
[2022-06-12 14:57] LABS: D-Dimer Quantitative (DVT/PE) 0.85 FEU/ug/m (0.27-0.49)
--- NOTE | 2022-06-12 14:59 | CT_ITS ---
INDICATION: chest pain EXAMINATION: CTA Chest WO/W Contrast Injection TECHNIQUE: Helically acquired images were obtained of the chest following administration of IV contrast. A radiation dose optimization technique was used for this scan. 3D postprocessing images including MIPS were reviewed. IV Contrast dosage and agent: IV 100mL [id number]-300 COMPARISON: None. FINDINGS: Lungs: Patchy and groundglass opacities seen along the periphery of the right lower lobe. Mediastinum: The cardiomediastinal silhouette is not enlarged. No mediastinal, hilar or axillary adenopathy. Mild aortic arch and coronary artery calcifications. No obvious filling defect seen within the visualized pulmonary arteries. Pleura: Unremarkable Bones/Soft tissues: There are diffuse degenerative changes of the spine. Upper abdomen: No visualized abnormalities in the upper abdomen. CT/CTA Chest W/WO Contrast IMPRESSION: No evidence of acute pulmonary emboli to the segmental level. Patchy and groundglass opacities seen along the periphery of the right lower lobe concerning for an infectious or inflammatory etiology. Electronically Signed: Josh Wolfe MD at 17:32 EDT ,
[2022-06-12 15:07] LABS: ALB/GLOB Ratio 1.1 RATIO (0.9-2.4); AST(SGOT) 20 U/L (15-37); Alanine Aminotransfer ALT/SGPT 30 U/L (13-56); Albumin, Serum 3.2 g/dL (3.2-5.0); Alkaline Phosphatase 84 U/L (45-117); Anion Gap 5 (5-15); BUN 20 mg/dL (7-18); BUN/Creat Ratio 19.6 RATIO (10-20); Chloride 107 mmol/L (98-107); Creatinine, Serum 1.02 mg/dL (0.55-1.02); EST Glomerular Filtration Rate 56 mL/min (>60); Est Glom Filt Rate - Afr Amer 68 mL/min (>60); Estimated Creatinine Clearance 36.51 ml/min; Glucose 85 mg/dL (74-106); Potassium 4.3 mmol/L (3.5-5.1); Protein, Total 6.2 g/dL (6.4-8.2); Sodium Level 139 mmol/L (136-145); Troponin-I HS (w/2H Reflex) 4 pg/mL (3.0-54.0)
[2022-06-12 16:43] LABS: Reflex Troponin-HS? (from REC) Y
[2022-06-12 17:03] VITALS: BP 143/70; PULSE 51; RESP 16; O2SAT 98
[2022-06-12 17:19] LABS: Troponin-I HS 4 pg/mL (3.0-54.0)
[2022-06-12 18:00] VITALS: BP 146/74; PULSE 54; RESP 15; O2SAT 98
== END 2022-06-12 18:08 | disposition home or self-care (01) ==
PROVIDERS: Emergency Provider Student in an Organized Health Care Education/Training Program; PCP Family Medicine Geriatric Medicine; Visit Provider Student in an Organized Health Care Education/Training Program
DX: R06.02 Shortness of breath (principal); I10 Essential (primary) hypertension; E78.2 Mixed hyperlipidemia; J45.909 Unspecified asthma, uncomplicated; M19.90 Unspecified osteoarthritis, unspecified site; E03.9 Hypothyroidism, unspecified; Z79.899 Other long term (current) drug therapy
CPT/HCPCS: 71045; 71275; 80053; 83880; 84484; 85025; 85379; 87428; 93005; 99284; Q9967; A4216

== ENCOUNTER → 2022-10-11 | Outpatient (CLI) | payer MEDICARE, SELFPAY | END | disposition home or self-care (01) | LOC: POLAB3 09:58 | PROVIDERS: PCP Family Medicine Geriatric Medicine; Visit Provider Family Medicine Geriatric Medicine | DX: I10 Essential (primary) hypertension (principal); E55.9 Vitamin D deficiency, unspecified ==

== ENCOUNTER → 2022-10-29 | Outpatient (CLI) | payer MEDICARE, SELFPAY | END | disposition home or self-care (01) | LOC: PSN 12:13 | PROVIDERS: PCP Family Medicine Geriatric Medicine; Referring Provider Family Medicine Geriatric Medicine; Visit Provider Family Medicine Geriatric Medicine | DX: R68.83 Chills (without fever) (principal); Z20.822 Contact with and (suspected) exposure to COVID-19 | CPT/HCPCS: 87635; 87804; 87807; C9803; U0003; U0005 ==

== ENCOUNTER → 2022-11-03 | Outpatient (CLI) | payer MEDICARE, SELFPAY ==
--- NOTE | 2022-11-03 15:00 | RAD_ITS ---
EXAM: XR CHEST, 2 VIEWS CLINICAL INDICATION: COUGH TECHNIQUE: Frontal and lateral views of the chest. This report was created using Touchbase report generation technology. COMPARISON: 06/12/2022 FINDINGS: LUNGS AND PLEURAL SPACES: Unremarkable. No consolidation or edema. No pneumothorax. No effusion. HEART: Unremarkable. Cardiac silhouette not enlarged. MEDIASTINUM: Central airways and mediastinal contour are unremarkable. BONES/JOINTS: Unremarkable. SOFT TISSUES: Unremarkable. RAD/Chest PA and Lateral IMPRESSION: No radiographic evidence of acute cardiopulmonary disease. Electronically Signed: Jovanny Johnson MD at 23:48 EST ,
== END | disposition home or self-care (01) ==
PROVIDERS: PCP Family Medicine Geriatric Medicine; Referring Provider Family Medicine Geriatric Medicine; Visit Provider Family Medicine Geriatric Medicine
DX: R05.9 Cough, unspecified (principal)
CPT/HCPCS: 71046

== ENCOUNTER → 2022-11-04 | Outpatient (CLI) | payer MEDICARE, SELFPAY | END | disposition home or self-care (01) | LOC: PSN 11:21 | PROVIDERS: PCP Family Medicine Geriatric Medicine; Referring Provider Family Medicine Geriatric Medicine; Visit Provider Family Medicine Geriatric Medicine | DX: R68.83 Chills (without fever) (principal); Z20.822 Contact with and (suspected) exposure to COVID-19 | CPT/HCPCS: 87635; 87804; 87807; U0003; U0005 ==

== ENCOUNTER → 2022-11-15 | Outpatient (CLI) | payer MEDICARE, SELFPAY ==
[2022-11-15 17:19] LABS: Absolute Lymphocyte Count 2.08 X10^3/uL (0.83-4.51); Absolute Neutrophil Count 4.1 X10^3/uL (2.0-7.7); Basophil# 0.03 X10^3/uL; Basophil% 0.4 % (0-1); Eosinophils% 2.8 % (0-5); Hematocrit 47.6 % (37-47); Hemoglobin 15.6 g/dL (12.0-15.0); Lymphocyte # 2.08 X10^3/ul (0.83-4.51); Lymphocyte % 28.8 % (19-41); Mean Corp Hgb Conc 32.8 g/dL (32-36); Mean Corpuscular Hgb 30.5 pg (27.0-32.0); Mean Corpuscular Volume 93.2 fL (81-99); Mean Platelet Vol. 10.8 fl (6.2-12.0); Monocyte# 0.78 X10^3/uL; Monocyte% 10.8 % (0-10); NRBC Flagged by Analyzer 0 % (0-5); Neutrophil # 4.07 X10^3/uL (2.7-7.7); Neutrophil % 56.4 % (47-70); Platelet Count 247 K/mm3 (150-450); RBC Distribution Width CV 13.2 % (11.6-14.6); RBC Distribution Width SD 45.3 fl (35.1-43.9); Red Blood Count 5.11 M/mm3 (4.2-5.4); White Blood Count 7.2 K/mm3 (4.4-11.0)
[2022-11-15 17:28] LABS: Vitamin D,25 Hydroxy 16.1 ng/mL
[2022-11-15 17:44] LABS: ALB/GLOB Ratio 0.9 RATIO (0.9-2.4); AST(SGOT) 17 U/L (15-37); Alanine Aminotransfer ALT/SGPT 33 U/L (13-56); Albumin, Serum 3.3 g/dL (3.2-5.0); Alkaline Phosphatase 108 U/L (45-117); Anion Gap 8 (5-15); BUN 18 mg/dL (7-18); BUN/Creat Ratio 24.6 RATIO (10-20); Chloride 104 mmol/L (98-107); Cholesterol 212 mg/dL (200); Creatinine, Serum 0.73 mg/dL (0.55-1.02); EST Glomerular Filtration Rate 82 mL/min (>60); Est Glom Filt Rate - Afr Amer 100 mL/min (>60); Globulin 3.5 g/dL (2.2-4.2); Glucose 134 mg/dL (74-106); High Density Lipoprotein 71 mg/dL; Potassium 4.2 mmol/L (3.5-5.1); Protein, Total 6.8 g/dL (6.4-8.2); Sodium Level 138 mmol/L (136-145); Thyroid Stim Hormone (TSH) 1.08 uIU/mL (0.358-3.74); Triglycerides 208 mg/dL; Very Low Density Lipoprotein 42 mg/dL (5-40)
== END | disposition home or self-care (01) ==
LOC: POLAB3 13:56
PROVIDERS: PCP Family Medicine Geriatric Medicine; Visit Provider Family Medicine Geriatric Medicine
DX: I10 Essential (primary) hypertension (principal); E78.5 Hyperlipidemia, unspecified; E55.9 Vitamin D deficiency, unspecified
CPT/HCPCS: 36415; 80053; 80061; 82306; 84443; 85025

== ENCOUNTER → 2023-05-16 | Outpatient (CLI) | payer MEDICARE, SELFPAY ==
[2023-05-16 14:33] LABS: Absolute Lymphocyte Count 2.43 X10^3/uL (0.83-4.51); Absolute Neutrophil Count 3.5 X10^3/uL (2.0-7.7); Basophil# 0.04 X10^3/uL; Basophil% 0.6 % (0-1); Eosinophil# 0.18 X10^3/uL; Eosinophils% 2.6 % (0-5); Hematocrit 43.5 % (37-47); Hemoglobin 14.2 g/dL (12.0-15.0); Lymphocyte # 2.43 X10^3/ul (0.83-4.51); Lymphocyte % 35.3 % (19-41); Mean Corp Hgb Conc 32.6 g/dL (32-36); Mean Corpuscular Hgb 30.5 pg (27.0-32.0); Mean Corpuscular Volume 93.3 fL (81-99); Monocyte# 0.71 X10^3/uL; Monocyte% 10.3 % (0-10); NRBC Flagged by Analyzer 0 % (0-5); Neutrophil # 3.48 X10^3/uL (2.7-7.7); Neutrophil % 50.6 % (47-70); Platelet Count 299 K/mm3 (150-450); RBC Distribution Width CV 13.2 % (11.6-14.6); RBC Distribution Width SD 45.2 fl (35.1-43.9); Red Blood Count 4.66 M/mm3 (4.2-5.4); White Blood Count 6.9 K/mm3 (4.4-11.0)
[2023-05-16 15:25] LABS: AST(SGOT) 20 U/L (15-37); Alanine Aminotransfer ALT/SGPT 30 U/L (13-56); Albumin, Serum 3.5 g/dL (3.2-5.0); Alkaline Phosphatase 134 U/L (45-117); Anion Gap 5 (5-15); BUN 16 mg/dL (7-18); BUN/Creat Ratio 21.8 RATIO (10-20); Calcium,Total 9.5 mg/dL (8.5-10.1); Chloride 107 mmol/L (98-107); Cholesterol 174 mg/dL (200); Creatinine, Serum 0.73 mg/dL (0.55-1.02); EST Glomerular Filtration Rate 82 mL/min (>60); Est Glom Filt Rate - Afr Amer 99 mL/min (>60); Globulin 3.5 g/dL (2.2-4.2); Glucose 113 mg/dL (74-106); High Density Lipoprotein 54 mg/dL; Potassium 4.2 mmol/L (3.5-5.1); Sodium Level 137 mmol/L (136-145); Thyroid Stim Hormone (TSH) 1.23 uIU/mL (0.358-3.74); Triglycerides 295 mg/dL; Very Low Density Lipoprotein 59 mg/dL (5-40)
[2023-05-16 17:27] LABS: Vitamin D,25 Hydroxy 24.3 ng/mL
== END | disposition home or self-care (01) ==
LOC: LAB 13:57
PROVIDERS: PCP Family Medicine Geriatric Medicine; Referring Provider Family Medicine Geriatric Medicine; Visit Provider Family Medicine Geriatric Medicine
DX: I10 Essential (primary) hypertension (principal); E55.9 Vitamin D deficiency, unspecified
CPT/HCPCS: 36415; 80053; 80061; 82306; 84443; 85025

== ENCOUNTER → 2023-09-01 | Outpatient (CLI) | payer MEDICARE, SELFPAY ==
[2023-09-01 17:16] LABS: Color, Urine Yellow (Yellow); Glucose, Dipstick Normal (Normal); Ketone-Dipstick Negative (Negative); Leukocyte Esterase-Dipstick Negative /ul (Negative); Nitrite-Dipstick Negative (Negative); Occult Blood-Urine Negative /ul (Negative); Protein-Dipstick Negative (Negative); Urine Bilirubin Dipstick Negative (Negative); Urine Clarity Clear (Clear); Urine Urobilinogen Normal (Normal)
[2023-09-01 17:21] LABS: Absolute Lymphocyte Count 1.88 X10^3/uL (0.83-4.51); Absolute Neutrophil Count 3.6 X10^3/uL (2.0-7.7); Basophil# 0.04 X10^3/uL; Basophil% 0.6 % (0-1); Eosinophil# 0.17 X10^3/uL; Eosinophils% 2.7 % (0-5); Hemoglobin 14.1 g/dL (12.0-15.0); Lymphocyte # 1.88 X10^3/ul (0.83-4.51); Lymphocyte % 29.5 % (19-41); Mean Corp Hgb Conc 32.8 g/dL (32-36); Mean Corpuscular Hgb 29.7 pg (27.0-32.0); Mean Corpuscular Volume 90.5 fL (81-99); Mean Platelet Vol. 10.1 fl (6.2-12.0); Monocyte# 0.63 X10^3/uL; Monocyte% 9.9 % (0-10); NRBC Flagged by Analyzer 0 % (0-5); Neutrophil # 3.63 X10^3/uL (2.7-7.7); Neutrophil % 56.8 % (47-70); Platelet Count 271 K/mm3 (150-450); RBC Distribution Width CV 13.6 % (11.6-14.6); RBC Distribution Width SD 44.8 fl (35.1-43.9); Red Blood Count 4.75 M/mm3 (4.2-5.4); White Blood Count 6.4 K/mm3 (4.4-11.0)
[2023-09-01 18:30] LABS: ALB/GLOB Ratio 1.1 RATIO (0.9-2.4); AST(SGOT) 25 U/L (15-37); Alanine Aminotransfer ALT/SGPT 38 U/L (13-56); Albumin, Serum 3.5 g/dL (3.2-5.0); Alkaline Phosphatase 114 U/L (45-117); Anion Gap 6 (5-15); BUN 13 mg/dL (7-18); BUN/Creat Ratio 17.7 RATIO (10-20); Calcium,Total 8.7 mg/dL (8.5-10.1); Chloride 107 mmol/L (98-107); Creatinine, Serum 0.73 mg/dL (0.55-1.02); EST Glomerular Filtration Rate 82 mL/min (>60); Est Glom Filt Rate - Afr Amer 99 mL/min (>60); Globulin 3.1 g/dL (2.2-4.2); Glucose 109 mg/dL (74-106); Potassium 3.8 mmol/L (3.5-5.1); Protein, Total 6.6 g/dL (6.4-8.2); Sodium Level 137 mmol/L (136-145); Thyroid Stim Hormone (TSH) 0.85 uIU/mL (0.358-3.74)
== END | disposition home or self-care (01) ==
LOC: POLAB3 16:54
PROVIDERS: PCP Family Medicine Geriatric Medicine; Visit Provider Family Medicine Geriatric Medicine
DX: R53.83 Other fatigue (principal)
CPT/HCPCS: 36415; 80053; 81002; 84443; 85025

== ENCOUNTER → 2023-12-01 | Outpatient (CLI) | payer MEDICARE, SELFPAY | END | disposition home or self-care (01) | LOC: POLAB3 10:43 | PROVIDERS: PCP Family Medicine Geriatric Medicine; Visit Provider Family Medicine Geriatric Medicine | DX: N39.0 Urinary tract infection, site not specified (principal) | CPT/HCPCS: 87077; 87086; 87088; 87186 ==

== ENCOUNTER → 2023-12-02 | Outpatient (CLI) | payer MEDICARE, SELFPAY | END | disposition home or self-care (01) | PROVIDERS: PCP Family Medicine Geriatric Medicine; Referring Provider Family Medicine Geriatric Medicine; Visit Provider Family Medicine Geriatric Medicine | DX: R68.83 Chills (without fever) (principal) | CPT/HCPCS: 87631 ==

== ENCOUNTER → 2023-12-21 | Outpatient (CLI) | payer MEDICARE, SELFPAY ==
[2023-12-21 14:33] LABS: Absolute Lymphocyte Count 2.32 X10^3/uL (0.83-4.51); Absolute Neutrophil Count 5.4 X10^3/uL (2.0-7.7); Basophil# 0.05 X10^3/uL; Basophil% 0.6 % (0-1); Eosinophils% 2.2 % (0-5); Hematocrit 44.8 % (37-47); Hemoglobin 14.6 g/dL (12.0-15.0); Lymphocyte # 2.32 X10^3/ul (0.83-4.51); Mean Corp Hgb Conc 32.6 g/dL (32-36); Mean Corpuscular Volume 89.1 fL (81-99); Mean Platelet Vol. 10.7 fl (6.2-12.0); Monocyte# 0.87 X10^3/uL; Monocyte% 9.8 % (0-10); NRBC Flagged by Analyzer 0 % (0-5); Neutrophil # 5.44 X10^3/uL (2.7-7.7); Neutrophil % 61.1 % (47-70); Platelet Count 297 K/mm3 (150-450); RBC Distribution Width CV 13.4 % (11.6-14.6); RBC Distribution Width SD 43.5 fl (35.1-43.9); Red Blood Count 5.03 M/mm3 (4.2-5.4); White Blood Count 8.9 K/mm3 (4.4-11.0)
[2023-12-21 14:49] LABS: Vitamin D,25 Hydroxy 19.4 ng/mL
[2023-12-21 15:00] LABS: AST(SGOT) 22 U/L (15-37); Alanine Aminotransfer ALT/SGPT 37 U/L (13-56); Albumin, Serum 3.5 g/dL (3.2-5.0); Alkaline Phosphatase 116 U/L (45-117); Anion Gap 7 (5-15); BUN 17 mg/dL (7-18); BUN/Creat Ratio 16.5 RATIO (10-20); Calcium,Total 9.3 mg/dL (8.5-10.1); Chloride 104 mmol/L (98-107); Creatinine, Serum 1.03 mg/dL (0.55-1.02); EST Glomerular Filtration Rate 55 mL/min (>60); Est Glom Filt Rate - Afr Amer 67 mL/min (>60); Globulin 3.5 g/dL (2.2-4.2); Glucose 130 mg/dL (74-106); Potassium 4.4 mmol/L (3.5-5.1); Sodium Level 135 mmol/L (136-145); Thyroid Stim Hormone (TSH) 3.41 uIU/mL (0.358-3.74)
== END | disposition home or self-care (01) ==
LOC: POLAB3 13:38
PROVIDERS: PCP Family Medicine Geriatric Medicine; Visit Provider Family Medicine Geriatric Medicine
DX: I10 Essential (primary) hypertension (principal); E55.9 Vitamin D deficiency, unspecified
CPT/HCPCS: 36415; 80053; 82306; 84443; 85025

== ENCOUNTER → 2024-05-22 | Outpatient (CLI) | payer MEDICARE, SELFPAY ==
[2024-05-22 15:54] LABS: Absolute Lymphocyte Count 2.38 X10^3/uL (0.83-4.51); Absolute Neutrophil Count 3.4 X10^3/uL (2.0-7.7); Basophil# 0.06 X10^3/uL; Basophil% 0.9 % (0-1); Eosinophil# 0.16 X10^3/uL; Eosinophils% 2.4 % (0-5); Hematocrit 45.1 % (37-47); Hemoglobin 14.5 g/dL (12.0-15.0); Lymphocyte # 2.38 X10^3/ul (0.83-4.51); Lymphocyte % 35.8 % (19-41); Mean Corp Hgb Conc 32.2 g/dL (32-36); Mean Corpuscular Hgb 29.2 pg (27.0-32.0); Mean Corpuscular Volume 90.7 fL (81-99); Mean Platelet Vol. 10.1 fl (6.2-12.0); Monocyte# 0.61 X10^3/uL; Monocyte% 9.2 % (0-10); NRBC Flagged by Analyzer 0 % (0-5); Neutrophil # 3.42 X10^3/uL (2.7-7.7); Neutrophil % 51.4 % (47-70); Platelet Count 278 K/mm3 (150-450); RBC Distribution Width CV 13.8 % (11.6-14.6); RBC Distribution Width SD 45.4 fl (35.1-43.9); Red Blood Count 4.97 M/mm3 (4.2-5.4); White Blood Count 6.7 K/mm3 (4.4-11.0)
[2024-05-22 16:22] LABS: Vitamin D,25 Hydroxy 20.7 ng/mL
[2024-05-22 16:35] LABS: ALB/GLOB Ratio 1.2 RATIO (0.9-2.4); AST(SGOT) 23 U/L (15-37); Alanine Aminotransfer ALT/SGPT 30 U/L (13-56); Albumin, Serum 3.9 g/dL (3.2-5.0); Alkaline Phosphatase 101 U/L (45-117); Anion Gap 5 (5-15); BUN 15 mg/dL (7-18); BUN/Creat Ratio 20.2 RATIO (10-20); Calcium,Total 9.7 mg/dL (8.5-10.1); Chloride 106 mmol/L (98-107); Creatinine, Serum 0.74 mg/dL (0.55-1.02); EST Glomerular Filtration Rate 81 mL/min (>60); Est Glom Filt Rate - Afr Amer 98 mL/min (>60); Globulin 3.2 g/dL (2.2-4.2); Glucose 93 mg/dL (74-106); Potassium 4.6 mmol/L (3.5-5.1); Protein, Total 7.1 g/dL (6.4-8.2); Sodium Level 139 mmol/L (136-145); Thyroid Stim Hormone (TSH) 1.42 uIU/mL (0.358-3.74)
== END | disposition home or self-care (01) ==
LOC: LAB 15:19
PROVIDERS: PCP Family Medicine Geriatric Medicine; Referring Provider Family Medicine Geriatric Medicine; Visit Provider Family Medicine Geriatric Medicine
DX: I10 Essential (primary) hypertension (principal); E55.9 Vitamin D deficiency, unspecified
CPT/HCPCS: 36415; 80053; 82306; 84443; 85025

== ENCOUNTER → 2024-06-21 | Outpatient (CLI) | payer MEDICARE, SELFPAY | END | disposition home or self-care (01) | LOC: LABSPEC 15:09 | PROVIDERS: PCP Family Medicine Geriatric Medicine; Referring Provider Family Medicine Geriatric Medicine; Visit Provider Family Medicine Geriatric Medicine | DX: N39.0 Urinary tract infection, site not specified (principal) | CPT/HCPCS: 87077; 87086; 87088; 87186 ==

== ENCOUNTER → 2024-07-24 | Outpatient (CLI) | payer MEDICARE, SELFPAY | END | disposition home or self-care (01) | LOC: LAB.FUTURE 18:03 → LAB 07-25 07:47 | PROVIDERS: PCP Family Medicine Geriatric Medicine; Referring Provider Family Medicine Geriatric Medicine; Visit Provider Family Medicine Geriatric Medicine | DX: N39.0 Urinary tract infection, site not specified (principal) | CPT/HCPCS: 87086 ==

== ENCOUNTER → 2024-07-24 | Outpatient (CLI) | payer MEDICARE, SELFPAY ==
--- NOTE | 2024-07-24 16:48 | CT_ITS ---
STUDY: CT ABDOMEN AND PELVIS WITH CONTRAST REASON FOR EXAM: Female, 78 years old. ABDOMINAL PAIN RADIATION DOSAGE (If Supplied By Facility): CTDIvol = ( 16.06 ) mGy, DLP = ( 1106.65 ) mGycm TECHNIQUE: Transaxial images were obtained from the dome of the diaphragm to the symphysis pubis without oral contrast. 100ml isovue 300 was administered. Sagittal and coronal images were reconstructed. Individualized dose optimization techniques were used for this CT. COMPARISON: None. FINDINGS: The visualized lung bases are unremarkable. There are coronary artery calcifications. Normal liver. Normal gallbladder and extrahepatic biliary system. Normal spleen. Normal pancreas. Normal bilateral adrenal glands. Normal right kidney. Normal left kidney. Normal visualized stomach. Normal small intestine. Normal colon. The appendix is visualized and appears normal. There is diffuse atherosclerotic calcification of the abdominal aorta, without a demonstrated aneurysm. Normal inferior vena cava. Normal retroperitoneum. There is wall thickening of the urinary bladder. There is absence of the uterus consistent with a prior hysterectomy. There is no free fluid in the abdomen or pelvis. Normal abdominal wall. There are diffuse degenerative changes of the visualized lumbar spine. CT/Abdomen/Pelvis WITH Contrast IMPRESSION: No obstruction. No stones or hydronephrosis. Wall thickening of the urinary bladder. Electronically Signed: Rodrigue Mancia MD at 20:53 EDT ,
[2024-07-24 17:26] LABS: Absolute Lymphocyte Count 2.59 X10^3/uL (0.83-4.51); Absolute Neutrophil Count 3.9 X10^3/uL (2.0-7.7); Basophil# 0.04 X10^3/uL; Basophil% 0.5 % (0-1); Eosinophil# 0.16 X10^3/uL; Eosinophils% 2.2 % (0-5); Hematocrit 43.6 % (37-47); Hemoglobin 14.3 g/dL (12.0-15.0); Lymphocyte # 2.59 X10^3/ul (0.83-4.51); Lymphocyte % 34.8 % (19-41); Mean Corp Hgb Conc 32.8 g/dL (32-36); Mean Corpuscular Hgb 29.9 pg (27.0-32.0); Mean Platelet Vol. 10.2 fl (6.2-12.0); Monocyte% 9.4 % (0-10); NRBC Flagged by Analyzer 0 % (0-5); Neutrophil # 3.91 X10^3/uL (2.7-7.7); Neutrophil % 52.6 % (47-70); Platelet Count 238 K/mm3 (150-450); RBC Distribution Width CV 13.2 % (11.6-14.6); RBC Distribution Width SD 44.4 fl (35.1-43.9); Red Blood Count 4.79 M/mm3 (4.2-5.4); White Blood Count 7.4 K/mm3 (4.4-11.0)
[2024-07-24 17:49] LABS: AST(SGOT) 19 U/L (15-37); Alanine Aminotransfer ALT/SGPT 28 U/L (13-56); Albumin, Serum 3.6 g/dL (3.2-5.0); Alkaline Phosphatase 112 U/L (45-117); Anion Gap 5 (5-15); BUN 8 mg/dL (7-18); BUN/Creat Ratio 9.2 RATIO (10-20); Calcium,Total 9.6 mg/dL (8.5-10.1); Chloride 104 mmol/L (98-107); Creatinine, Serum 0.86 mg/dL (0.55-1.02); EST Glomerular Filtration Rate 68 mL/min (>60); Est Glom Filt Rate - Afr Amer 82 mL/min (>60); Globulin 3.7 g/dL (2.2-4.2); Glucose 102 mg/dL (74-106); Potassium 3.8 mmol/L (3.5-5.1); Protein, Total 7.3 g/dL (6.4-8.2); Sodium Level 138 mmol/L (136-145)
== END | disposition home or self-care (01) ==
PROVIDERS: PCP Family Medicine Geriatric Medicine; Referring Provider Family Medicine Geriatric Medicine; Visit Provider Family Medicine Geriatric Medicine
DX: R19.7 Diarrhea, unspecified (principal); I10 Essential (primary) hypertension; N39.0 Urinary tract infection, site not specified; R10.9 Unspecified abdominal pain
CPT/HCPCS: 36415; 74177; 80053; 85025; 87086; Q9967; A4216

== ENCOUNTER 2024-07-25 13:44 | Outpatient (CLI) | payer MEDICARE, SELFPAY ==
[2024-07-25 13:52] VITALS: BP 96/72; PULSE 60; RESP 16; TEMP 35.9; O2SAT 94; BMI 33.2
[2024-07-25] MEDS: 0.9% NaCl Peripheral Flush Adult/Peds IV (14:00)
[2024-07-25] MEDS: 0.9% Normal Saline (1000mL) 1,000 ML 999 ML IV ×2 (14:00→15:13)
[2024-07-25 16:26] VITALS: BP 131/69; PULSE 59; RESP 16; TEMP 35.8; O2SAT 96
== END 2024-07-25 23:59 | disposition home or self-care (01) ==
LOC: MEDOUTP 13:44
PROVIDERS: PCP Family Medicine Geriatric Medicine; Referring Provider Family Medicine Geriatric Medicine; Visit Provider Family Medicine Geriatric Medicine
DX: E86.0 Dehydration (principal)
CPT/HCPCS: 96360; 96361; J7030; A4216

== ENCOUNTER → 2024-07-25 | Outpatient (CLI) | payer MEDICARE, SELFPAY | END | disposition home or self-care (01) | PROVIDERS: PCP Family Medicine Geriatric Medicine; Visit Provider Family Medicine Geriatric Medicine | DX: E86.0 Dehydration (principal); R19.7 Diarrhea, unspecified; I10 Essential (primary) hypertension | CPT/HCPCS: 96360; 96361; 82274; 83630; 87493; J7030; A4216 ==

== ENCOUNTER → 2024-08-28 | Outpatient (CLI) | payer MEDICARE, SELFPAY | END | disposition home or self-care (01) | LOC: POLAB3 16:31 | PROVIDERS: PCP Family Medicine Geriatric Medicine; Visit Provider Family Medicine Geriatric Medicine | DX: R68.83 Chills (without fever) (principal) | CPT/HCPCS: 87631 ==

== ENCOUNTER → 2024-11-29 | Outpatient (CLI) | payer MEDICARE, SELFPAY ==
[2024-11-29 13:50] LABS: Absolute Lymphocyte Count 2.32 X10^3/uL (0.83-4.51); Absolute Neutrophil Count 5.3 X10^3/uL (2.0-7.7); Basophil# 0.08 X10^3/uL; Basophil% 0.9 % (0-1); Eosinophil# 0.23 X10^3/uL; Eosinophils% 2.6 % (0-5); Hematocrit 44.8 % (37-47); Hemoglobin 14.7 g/dL (12.0-15.0); Lymphocyte # 2.32 X10^3/ul (0.83-4.51); Lymphocyte % 26.2 % (19-41); Mean Corp Hgb Conc 32.8 g/dL (32-36); Mean Corpuscular Hgb 30.2 pg (27.0-32.0); Mean Corpuscular Volume 92.2 fL (81-99); Mean Platelet Vol. 10.2 fl (6.2-12.0); Monocyte# 0.86 X10^3/uL; Monocyte% 9.7 % (0-10); NRBC Flagged by Analyzer 0 % (0-5); Neutrophil # 5.28 X10^3/uL (2.7-7.7); Neutrophil % 59.5 % (47-70); Platelet Count 328 K/mm3 (150-450); RBC Distribution Width CV 13.2 % (11.6-14.6); RBC Distribution Width SD 44.9 fl (35.1-43.9); Red Blood Count 4.86 M/mm3 (4.2-5.4); White Blood Count 8.9 K/mm3 (4.4-11.0)
[2024-11-29 14:35] LABS: Vitamin D,25 Hydroxy 7.9 ng/mL
[2024-11-29 14:48] LABS: AST(SGOT) 21 U/L (15-37); Alanine Aminotransfer ALT/SGPT 30 U/L (13-56); Albumin, Serum 3.3 g/dL (3.2-5.0); Alkaline Phosphatase 124 U/L (45-117); Anion Gap 8 (5-15); BUN 11 mg/dL (7-18); BUN/Creat Ratio 11.5 RATIO (10-20); Calcium,Total 8.8 mg/dL (8.5-10.1); Chloride 105 mmol/L (98-107); Cholesterol 190 mg/dL (200); Creatinine, Serum 0.96 mg/dL (0.55-1.02); EST Glomerular Filtration Rate 60 mL/min (>60); Est Glom Filt Rate - Afr Amer 73 mL/min (>60); Globulin 3.4 g/dL (2.2-4.2); Glucose 115 mg/dL (74-106); High Density Lipoprotein 62 mg/dL; Potassium 3.7 mmol/L (3.5-5.1); Protein, Total 6.7 g/dL (6.4-8.2); Sodium Level 137 mmol/L (136-145); Triglycerides 266 mg/dL; Very Low Density Lipoprotein 53 mg/dL (5-40)
== END | disposition home or self-care (01) ==
LOC: POLAB3 13:33
PROVIDERS: PCP Family Medicine Geriatric Medicine; Visit Provider Family Medicine Geriatric Medicine
DX: I10 Essential (primary) hypertension (principal); E55.9 Vitamin D deficiency, unspecified; E78.5 Hyperlipidemia, unspecified
CPT/HCPCS: 36415; 80053; 80061; 82306; 84443; 85025

== ENCOUNTER → 2025-05-23 | Outpatient (CLI) | payer MEDICARE, SELFPAY ==
[2025-05-23 14:32] LABS: Absolute Neutrophil Count 3.7 X10^3/uL (2.0-7.7); Basophil# 0.04 X10^3/uL; Basophil% 0.6 % (0-1); Eosinophil# 0.16 X10^3/uL; Eosinophils% 2.5 % (0-5); Hemoglobin 14.5 g/dL (12.0-15.0); Mean Corpuscular Hgb 29.7 pg (27.0-32.0); Mean Corpuscular Volume 90.2 fL (81-99); Mean Platelet Vol. 10.5 fl (6.2-12.0); Monocyte# 0.54 X10^3/uL; Monocyte% 8.5 % (0-10); NRBC Flagged by Analyzer 0 % (0-5); Neutrophil # 3.65 X10^3/uL (2.7-7.7); Neutrophil % 57.8 % (47-70); Platelet Count 267 K/mm3 (150-450); RBC Distribution Width CV 12.8 % (11.6-14.6); RBC Distribution Width SD 41.9 fl (35.1-43.9); Red Blood Count 4.88 M/mm3 (4.2-5.4); White Blood Count 6.3 K/mm3 (4.4-11.0)
[2025-05-23 15:20] LABS: ALB/GLOB Ratio 1.6 RATIO (0.9-2.4); AST(SGOT) 20 U/L (<=31); Alanine Aminotransfer ALT/SGPT 17 U/L (<=34); Alkaline Phosphatase 107 U/L (35-104); Anion Gap 9 (5-15); BUN 11 mg/dL (4-19); BUN/Creat Ratio 13.3 RATIO (10-20); Calcium,Total 9.5 mg/dL (7.6-11.0); Carbon Dioxide 25.8 mmol/L (21.0-32.0); Chloride 104 mmol/L (98-108); Cholesterol 158 mg/dL (<=200); EST Glomerular Filtration Rate 76 (>60); Globulin 2.5 g/dL (2.2-4.2); Glucose 116 mg/dL (70-99); High Density Lipoprotein 56 mg/dL; Low Density Lipoprotein Calc. 75 mg/dL; Potassium 4.9 mmol/L (3.3-5.1); Protein, Total 6.5 g/dL (5.9-8.4); Sodium Level 139 mmol/L (133-145); Thyroid Stim Hormone (TSH) 0.426 uIU/mL (0.300-4.200); Total Bilirubin 0.59 mg/dL (0.00-1.30); Triglycerides 135 mg/dL; Very Low Density Lipoprotein 27 mg/dL (5-40); Vitamin D,25 Hydroxy 31.1 ng/mL (30-100); cholesterol:hdl ratio screen 2.81
== END | disposition home or self-care (01) ==
LOC: LAB 13:42
PROVIDERS: PCP Family Medicine Geriatric Medicine; Referring Provider Family Medicine Geriatric Medicine; Visit Provider Family Medicine Geriatric Medicine
DX: I10 Essential (primary) hypertension (principal); E78.5 Hyperlipidemia, unspecified; E55.9 Vitamin D deficiency, unspecified
CPT/HCPCS: 36415; 80053; 80061; 82306; 84443; 85025